=== PATIENT | female | born 1950 | race Caucasian/White ===

== ENCOUNTER → 2016-06-07 | Outpatient (CLI) | payer OTHER ==
[2016-05-17 10:51] VITALS: BP 121/72
[~2016-06-07] MED LIST: ASPI-482 PO; ASPI81TA44 PO; ATOR20TA58 PO; CARB15DR3 EACHEYE; CELE100C59 PO; CEPH-264 PO; CYCL1DRO EACHEYE; DOXY100C14 PO; DOXY40CP PO; FISH12002 PO; FURO20TA3 PO; GLIP10TA13 PO; HYDR-2666 PO; HYDR-971 PO; HYDR12.58 PO; IOHEXOL 240 MG/ML 50ML VIAL. ONE; IOHEXOL 300 MG/ML 75 ML VIAL. IV ONE; LEVO125T5 PO; LEVO25TA4 PO; LISI-334 PO; LOTE5DRO2 LEFTEYE; METF500T4 PO; METO50TA10 PO; METO50TA2 PO; NAPR220T70 PO; OXYC5TAB PO; POTA10TA5 PO; SIMV40TA3 PO
--- NOTE | 2016-06-07 10:03 | RAD ---
Examination: CT of the abdomen pelvis with oral and IV contrast History: History of epigastric or pelvic pain for one week Comparison: None available Technique: Axial CT images of the abdomen was performed with oral and IV contrast. Coronal and sagittal reformats are performed PQRS Compliance Statement: One or more of the following individualized dose reduction techniques were utilized for this examination: 1. Automated exposure control 2. Adjustment of the mA and/or kV according to patient size 3. Use of iterative reconstruction technique Findings: 4 mm pulmonary nodule identified in the right lower lobe of the lung medially. No evidence of free air identified in the abdomen. The visualized adrenals grossly appears unremarkable. Mildly enlarged liver. Few calcified granulomas identified in the spleen. Mild splenomegaly measuring 14 cm. The gallbladder is mildly distended. A small gallstone identified within the gallbladder. The visualized pancreas grossly appears unremarkable. The stomach is mildly distended. The small bowel is nondistended. Multiple sigmoid colon diverticula. Mild thickened appearance of the distal rectal wall. The urinary bladder is mildly distended. Heterogeneous appearance of the uterus with an exophytic heterogeneous density identified projecting from the uterus best visualized on coronal image 44 measuring 2.8 x 2.6 cm could be a fibroid or the right ovary projecting superior to the uterus. Moderate amount of free fluid identified in the pelvis. Small umbilical hernia noted. Retroaortic left renal vein is identified. Moderate degenerative changes in the lumbar spine. Bilateral L5 spondylolysis with mild spondylolisthesis of L5 on S1. Impression: 1. Multiple sigmoid colon diverticulosis without evidence of diverticulitis identified. There is mild thickened appearance of the distal rectal wall, nonspecific could represent nondistention. However rectal mucosa pathology is not completely excluded. 2. Mild hepatosplenomegaly. 3. Small gallstone identified within the gallbladder. 4. Small umbilical hernia. 5. Heterogeneous appearance of the uterus, ultrasound pelvis can be considered to exclude fibroids. 6. 4 mm pulmonary nodule right lower lobe of lung. Follow-up per Fleischner Society guidelines. The Fleischner Society guidelines for followup of an incidentally detected 4 mm or smaller pulmonary nodule are as follows: If the patient is a low risk patient (non-smoker and no known tumor), a 4 mm nodule does not need followup. If the patient has a primary extra thoracic tumor or hematogenous infection, this nodule cannot be ignored as it could represent metastasis or septic embolus. If the patient is a high risk patient (smoker or has an extrathoracic primary), followup chest CT in one year is recommended. If unchanged, no further follow-up is recommended.
== END | disposition home or self-care (01) ==
LOC: CT 08:11
PROVIDERS: ATTEND Nurse Practitioner Family
DX: R10.32 Left lower quadrant pain (principal); R10.31 Right lower quadrant pain; R19.7 Diarrhea, unspecified; R11.2 Nausea with vomiting, unspecified; R16.2 Hepatomegaly with splenomegaly, not elsewhere classified; K80.20 Calculus of gallbladder without cholecystitis without obstruction; K42.9 Umbilical hernia without obstruction or gangrene
CPT/HCPCS: 74177; Q9966; Q9967

== ENCOUNTER → 2016-07-10 | Outpatient (CLI) | payer OTHER ==
[2016-05-17 10:51] VITALS: BP 121/72
[~2016-07-10] MED LIST changes: -IOHEXOL 240 MG/ML 50ML VIAL. ONE; -IOHEXOL 300 MG/ML 75 ML VIAL. IV ONE
--- NOTE | 2016-07-10 11:02 | RAD ---
Radionuclide gastric imaging study, 07/10/2016: History: Abdominal pain The study was performed utilizing a solid test meal radiolabeled with 2 mCi of technetium 99m sulfur colloid. The time to half emptying of the chest with the patient's stomach was estimated at 165 minutes. A normal T1/2 is 60 minutes +/- 30 minutes. IMPRESSION: Moderately delayed gastric emptying.
== END | disposition home or self-care (01) ==
LOC: NM 08:58
PROVIDERS: ATTEND Internal Medicine Gastroenterology
DX: K30 Functional dyspepsia (principal); I10 Essential (primary) hypertension
CPT/HCPCS: 78264; A9541

== ENCOUNTER → 2016-07-18 | Outpatient (CLI) | payer OTHER ==
[2016-05-17 10:51] VITALS: BP 121/72
[~2016-07-18] VITALS: Ht 185.4 cm; Wt 109.8 kg
[~2016-07-18] MED LIST changes: +SINCALIDE 2.2 MCG in IV NORMAL SALINE 50ML 30 ML IV ONE
--- NOTE | 2016-07-18 09:22 | RAD ---
Right upper quadrant abdominal ultrasound, 07/18/2016: History: Epigastric pain The gallbladder is within normal limits in size. It contains multiple small foci of increased echogenicity with associated posterior acoustic shadowing. The findings are compatible with gallstones. The gallbladder wall is not thickened. No bile duct dilatation is seen. The liver is enlarged measures approximately 19 cm in craniocaudad extent at the level of the right lobe. No hepatic mass is identified. The visualized portions of the pancreas and right kidney are unremarkable. IMPRESSION: 1. Cholelithiasis. 2. Hepatomegaly.
--- NOTE | 2016-07-18 13:01 | RAD ---
Hepatobiliary scan with ejection fraction History: Abdominal pain for 3 months. Procedure: Serial static images are obtained of the liver and biliary system in the frontal and right lateral projections following IV administration of 5.3 mCi of 99 M technetium Choletec. After filling of the gallbladder, 2.2 mcg of cholecystokinin was administered intravenously, additional imaging was performed for 30 minutes, and gallbladder ejection fraction was measured. Findings: There is homogeneous distribution throughout the liver. There is normal filling of the gallbladder and normal emptying into the biliary system and small bowel. The gallbladder ejection fraction measures 9% (normal gallbladder EF is 35% or greater). Impression: 1. No evidence of acute cholecystitis or biliary obstruction. 2. Gallbladder ejection fraction is low at 9%. In the proper clinical setting, findings would be compatible with chronic cholecystitis.
== END | disposition home or self-care (01) ==
LOC: US 08:06
PROVIDERS: ATTEND Internal Medicine Gastroenterology
DX: K80.20 Calculus of gallbladder without cholecystitis without obstruction (principal); R16.0 Hepatomegaly, not elsewhere classified
CPT/HCPCS: 76705; 78226; 96374; 96375; A9537; J2805

== ENCOUNTER 2016-07-23 09:30 | Observation (INO) | payer OTHER ==
[~2016-07-23] VITALS: Ht 154.9 cm; Wt 114.1 kg
[2016-07-23] VITALS (10 sets, daily range): BP systolic 157–213; BP diastolic 70–108
[~2016-07-23 09:30] MED LIST changes: -SINCALIDE 2.2 MCG in IV NORMAL SALINE 50ML 30 ML IV ONE
--- NOTE | 2016-07-23 09:35 | ED.ADGEN ---
Past History Past Medical History: Hypertension, Hypothyroid Past Surgical History: Other Smoking: Non-smoker Alcohol Use: Rarely Drug Use: None Adult General Chief Complaint Chief Complaint Elevated D-dimer [facility] HPI Patient is a 65 year old female who presents with abnormal lab values. According to patient she woke up 2 nights ago around 2 in the morning and had sharp stabbing pain when over around her back into her epigastric area and she felt short of breath with this. She got up and walked around tried watching TV after 20 minutes it was reduced to a tolerable level. It persisted until last night. Yesterday she saw her primary care physician who ordered an EKG lab work and a d-dimer and then she was called this morning stating her d- dimer was elevated. Currently she has no complaints other than her chronic abdominal pain of which she is scheduled for to get a hernia repair in addition to a cholecystectomy. She states yesterday afternoon/evening around 7 PM her pain completely subsided and since then she's been having her chronic abdominal wall pain. She denies any fevers chills nausea vomiting or chest pain currently. She states she's had a cardiology cardiac catheter to [facility] partially 6 years ago which they told her the main blood vessel in her heart is about 70% stenosed but was not bad enough to do anything about it. She states since then she's not had any cardiac evaluation. She does have a family history of heart disease with her sister and a previous history of tobacco abuse. Patient had labs drawn yesterday that showed a d-dimer of extending 0.2, troponin of less than 0.01, creatinine of 1.33 with a GFR 42 and BUNs of 26. Review of Systems Review of Systems Constitutional: Denies fever or chills [] Eyes: Denies change in visual acuity, redness, or eye pain [] HENT: Denies nasal congestion or sore throat [] Respiratory: Denies cough or shortness of breath [] Cardiovascular: No additional information not addressed in HPI [] GI: Denies abdominal pain, nausea, vomiting, bloody stools or diarrhea [] : Denies dysuria or hematuria [] Musculoskeletal: Denies back pain or joint pain [] Integument: Denies rash or skin lesions [] Neurologic: Denies headache, focal weakness or sensory changes [] Endocrine: Denies polyuria or polydipsia [] Current Medications Current Medications Current Medications Medications (Trade) Dose Ordered Sig/Alejandrina Start Time Stop Time Status Last Admin Dose Admin Iohexol 75 ml 75 ml 1X ONCE 07/23/16 13:00 07/23/16 13:01 DC 07/23/16 13:12 75 ML Nitroglycerin (Nitrostat) 0.4 mg PRN Q5MIN PRN 07/23/16 15:00 07/24/16 14:59 UNV Ondansetron HCl (Zofran) 4 mg PRN Q4HRS PRN 07/23/16 15:00 07/24/16 14:59 UNV Sodium Chloride (Iv Sodium Chloride 0.9% 1,000ml) 1,000 ml @ 1,000 mls/hr 1X ONCE 07/23/16 13:30 07/23/16 14:29 DC 07/23/16 13:30 1,000 MLS/HR Allergies Allergies Allergies Coded Allergies Type Severity Reaction Last Updated Verified niacin Allergy Unknown 09/23/13 No Physical Exam Physical Exam Constitutional: Well developed, well nourished, obese, no acute distress, non- toxic appearance. [] HENT: Normocephalic, atraumatic, bilateral external ears normal, oropharynx moist, no oral exudates, nose normal. [] Eyes: PERRLA, EOMI, conjunctiva normal, no discharge. [] Neck: Normal range of motion, no tenderness, supple, no stridor. [] Cardiovascular:Heart rate regular rhythm, no murmur [] Lungs & Thorax: Bilateral breath sounds clear to auscultation [] Abdomen: Bowel sounds normal, soft, no tenderness, no masses, no pulsatile masses. [] Skin: Warm, dry, no erythema, no rash. [] Back: No tenderness, no CVA tenderness. [] Extremities: No tenderness, no cyanosis, no clubbing, ROM intact, no edema. [] Neurologic: Alert and oriented X 3, normal motor function, normal sensory function, no focal deficits noted. [] Psychologic: Affect normal, judgement normal, mood normal. [] Current Patient Data Vital Signs Vital Signs Date Time Temp Pulse Resp B/P Pulse Ox O2 Delivery O2 Flow Rate FiO2 07/23/16 13:44 71 20 159/79 98 Room Air 07/23/16 09:30 98.0 Lab Results Laboratory Tests Test 07/23/16 10:15 07/23/16 11:50 Urine Collection Type Unknown Urine Color Yellow Urine Clarity Clear Urine pH 5.0 Urine Specific [place] 1.015 Urine Protein Neg (NEG-TRACE) Urine Glucose (UA) Negmg/dL (NEG) Urine Ketones (Stick) Negmg/dL (NEG) Urine Blood Small (NEG) Urine Nitrite Neg (NEG) Urine Bilirubin Neg (NEG) Urine Urobilinogen Dipstick 0.2mg/dL (0.2 mg/dL) Urine Leukocyte Esterase Neg (NEG) Urine RBC 1-2/HPF (0-2) Urine WBC Rare/HPF (0-4) Urine Squamous Epithelial Cells Few/LPF Urine Amorphous Sediment Present/HPF Urine Bacteria 0/HPF (0-FEW) Urine Mucus Slight/LPF White Blood Count 4.5x10^3/uL (4.0-11.0) Red Blood Count 4.35x10^6/uL (3.50-5.40) Hemoglobin 13.7g/dL (12.0-15.5) Hematocrit 41.2% (36.0-47.0) Mean Corpuscular Volume 95fL (79-100) Mean Corpuscular Hemoglobin 31pg (25-35) Mean Corpuscular Hemoglobin Concent 33g/dL (31-37) Red Cell Distribution Width 13.2% (11.5-14.5) Platelet Count 232x10^3/uL (140-400) Neutrophils (%) (Auto) 42% (31-73) Lymphocytes (%) (Auto) 34% (24-48) Monocytes (%) (Auto) 16% (0-9) H Eosinophils (%) (Auto) 7% (0-3) H Basophils (%) (Auto) 1% (0-3) Neutrophils # (Auto) 1.9x10^3uL (1.8-7.7) Lymphocytes # (Auto) 1.5x10^3/uL (1.0-4.8) Monocytes # (Auto) 0.7x10^3/uL (0.0-1.1) Eosinophils # (Auto) 0.3x10^3/uL (0.0-0.7) Basophils # (Auto) 0.1x10^3/uL (0.0-0.2) Prothrombin Time 12.0SEC (9.4-11.4) H Prothrombin Time INR 1.2 (0.9-1.1) H PTT 29SEC (23-33) Sodium Level 144mmol/L (136-145) Potassium Level 4.6mmol/L (3.5-5.1) Chloride Level 108mmol/L (98-107) H Carbon Dioxide Level 28mmol/L (21-32) Anion Gap 8 (6-14) Blood Urea Nitrogen 24mg/dL (7-20) H Creatinine 1.2mg/dL (0.6-1.0) H Estimated GFR (Cockcroft-Gault) 44.9 BUN/Creatinine Ratio 20 (6-20) Glucose Level 74mg/dL (70-99) Calcium Level 8.8mg/dL (8.5-10.1) Magnesium Level 1.7mg/dL (1.8-2.4) L Total Bilirubin 0.6mg/dL (0.2-1.0) Aspartate Amino Transferase (AST) 34U/L (15-37) Alanine Aminotransferase (ALT) 30U/L (14-59) Alkaline Phosphatase 70U/L (46-116) Creatine Kinase 28U/L (26-192) Creatine Kinase MB (Mass) 0.5ng/mL (0.0-3.6) Creatine Kinase MB Relative Index 1.8% (0-4) Troponin I Quantitative < 0.017ng/mL (0-0.055) EC-Ztl-N-Type Natriuretic Peptide 168pg/mL (0-124) H Total Protein 7.4g/dL (6.4-8.2) Albumin 3.0g/dL (3.4-5.0) L Albumin/Globulin Ratio 0.7 (1.0-1.7) L Lipase 273U/L (73-393) EKG EKG EKG shows normal sinus rhythm with rate of [address] elevations or T -wave inversions, normal axis, QTC 436 ms, as interpreted by me. Radiology/Procedures Radiology/Procedures [address] [address] IMAGING REPORT Signed PATIENT: JOHN GOODSON ACCOUNT: [id number] : 1950 LOCATION: ER AGE: 65 SEX: F EXAM STATUS: REG ER ORD. PHYSICIAN: JAZ BLOUNT MD REASON: soa PROCEDURE: PORTABLE CHEST 1V Portable chest, 07/23/2016: History: Shortness of breath Comparison is made to a study from 05/15/2016. The heart size and pulmonary vascularity are normal. No pulmonary infiltrates are seen. There is no evidence of pleural fluid. IMPRESSION: No acute cardiopulmonary abnormality is detected. DICTATED AND SIGNED BY: MARK SUAREZ MD DATE: 07/23/16 1140 CC: MARK KNOWLES MD; JAZ BLOUNT MD ~ Pertinent Labs and Imaging studies reviewed. (See chart for details) [place] [address] IMAGING REPORT Signed PATIENT: JOHN OGODSON ACCOUNT: [id number] : 1950 LOCATION: ER AGE: 65 SEX: F EXAM STATUS: REG ER ORD. PHYSICIAN: JAZ BLOUNT MD REASON: elevated d dimer PROCEDURE: CT ANGIOGRAPHY CHEST CTA of the chest with contrast, 07/23/2016: History: Elevated d-dimer, preop evaluation Multidetector CT imaging was performed following an IV bolus injection of iodinated contrast material. 2 injections were necessary due to technical difficulties. Multiplanar reconstructions were produced including coronal MIP images. The main and lobar pulmonary arteries are fairly well opacified and no filling defects are seen. There is a tiny filling defect present in a segmental pulmonary artery in the right lower lobe extending into a subsegmental branch. No other definite pulmonary arterial filling defects are seen, although the smaller branches are not well delineated in this large patient. There is calcific plaquing of the thoracic aorta without evidence of aneurysm. Extensive coronary artery calcifications are present. Small mediastinal lymph nodes are seen without evidence of pathologic enlargement. There are 2 calcified granulomata in the right lung. There are several small noncalcified pulmonary nodules in both lungs. These include a 5 mm nodule in the left upper lobe as seen on image 41 of series #4, and similar nodules in the right lower lobe as seen on image 69 of series #4 and in the right upper lobe as seen on image 42 of series #4. A couple of other smaller scattered nodules are also seen. No pulmonary consolidation is evident. There is no evidence of pleural fluid. IMPRESSION: 1. Single tiny pulmonary emboli in a segmental pulmonary artery and a subsegmental branch in the right lower lobe. 2. No other definite pulmonary emboli are seen, however, the smaller pulmonary arteries are not optimally delineated in this patient. 3. Old healed granulomatous disease in the chest. 4. Several noncalcified bilateral pulmonary nodules are evident. While these may represent noncalcified granulomas, metastatic disease cannot be excluded. 5. Extensive coronary artery calcifications. PQRS Compliance Statement: One or more of the following individualized dose reduction techniques were utilized for this examination: 1. Automated exposure control 2. Adjustment of the mA and/or kV according to patient size 3. Use of iterative reconstruction technique DICTATED AND SIGNED BY: MARK SUAREZ MD DATE: 07/23/16 5394 CC: MARK KNOWLES MD; JAZ BLOUNT MD ~ Course & Med Decision Making Course & Med Decision Making Pertinent Labs and Imaging studies reviewed. (See chart for details) Patient is scheduled for a cholecystectomy and abdominal wall hernia repair on . She's been having intermittent chest discomfort and states she's had a cardiac catheter 6 years ago that shows a significant stenosis in one of her coronary vessels. She has a family history of 6 siblings with all having coronary disease. She states she hasn't had any kind of workup in the last 6 years. Her EKG shows T-wave inversions that's different from yesterday's EKG. Her labs do not show any acute abnormalities. She does have a small subsegmental PE on CT [place]. Do not believe her small PE explains all of her symptoms and justifies having cardiology evaluate her for possible stress test before her surgery that she has planned. I spoke with Dr. Albright who is okay with starting Lovenox and admitting the patient here with cardiology consultation. I spoke with Marti is a nurse practitioner with cardiology and updated her on the patient's condition, labs, EKG. Patient's in stable condition being given Lovenox and admitted with a bridge orders written. Final Impression Final Impression Subsegmental PE Chest pain Hypertension Diabetes Dyslipidemia Obesity Problems: Dragon Disclaimer Dragon Disclaimer This electronic medical record was generated, in whole or in part, using a voice recognition dictation system. JAZ BLOUNT MD July 23, 2016 09:35
[2016-07-23] MEDS ORDERED: IV NORMAL SALINE 1,000ML 1,000 ML IV SCH (10:15)
[2016-07-23 10:48] LABS: BACTERIA,URINE 0 /HPF (0-FEW); BILIRUBIN,URINE NEG (NEG); CLARITY,URINE CLEAR; COLOR,URINE YELLOW; GLUCOSE,URINE NEG (NEG); NITRITE,URINE NEG (NEG); SQUAMOUS EPITHELIAL CELL,UR FEW /LPF; UROBILINOGEN,URINE 0.2 mg/dL (0.2 mg/dL); WBC,URINE RARE /HPF (0-4)
[2016-07-23 10:49] LABS: AMORPHOUS SEDIMENT,UR PRESENT /HPF
--- NOTE | 2016-07-23 10:50 | EKG ---
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
--- NOTE | 2016-07-23 11:43 | RAD ---
Portable chest, 07/23/2016: History: Shortness of breath Comparison is made to a study from 05/15/2016. The heart size and pulmonary vascularity are normal. No pulmonary infiltrates are seen. There is no evidence of pleural fluid. IMPRESSION: No acute cardiopulmonary abnormality is detected.
[2016-07-23 12:07] LABS: BASO # 0.1 x10^3/uL (0.0-0.2); BASO % 1 % (0-3); EOS # 0.3 x10^3/uL (0.0-0.7); EOS % 7 % (0-3); HEMATOCRIT 41.2 % (36.0-47.0); HEMOGLOBIN 13.7 g/dL (12.0-15.5); LYMPH # 1.5 x10^3/uL (1.0-4.8); LYMPH % 34 % (24-48); MEAN CORPUSCULAR HEMOGLOBIN 31 pg (25-35); MEAN CORPUSCULAR HGB CONC 33 g/dL (31-37); MEAN CORPUSCULAR VOLUME 95 fL (79-100); MONO # 0.7 x10^3/uL (0.0-1.1); MONO % 16 % (0-9); NEUT # 1.9 x10^3uL (1.8-7.7); NEUT % 42 % (31-73); PLATELET COUNT 232 x10^3/uL (140-400); RED BLOOD COUNT 4.35 x10^6/uL (3.50-5.40); RED CELL DISTRIBUTION WIDTH 13.2 % (11.5-14.5); WHITE BLOOD COUNT 4.5 x10^3/uL (4.0-11.0)
[2016-07-23 12:39] LABS: ALBUMIN/GLOBULIN RATIO 0.7 (1.0-1.7); CALCIUM 8.8 mg/dL (8.5-10.1); CREATININE 1.2 mg/dL (0.6-1.0); GFR 44.9; MAGNESIUM 1.7 mg/dL (1.8-2.4); POTASSIUM 4.6 mmol/L (3.5-5.1); TOTAL BILIRUBIN 0.6 mg/dL (0.2-1.0); TOTAL PROTEIN 7.4 g/dL (6.4-8.2)
[2016-07-23] MEDS ORDERED: IOHEXOL 300 MG/ML 75 ML VIAL. IV ONE (13:00)
[2016-07-23] MEDS ORDERED: IV NORMAL SALINE 1,000ML 1,000 ML IV ONE (13:30)
--- NOTE | 2016-07-23 14:12 | RAD ---
CTA of the chest with contrast, 07/23/2016: History: Elevated d-dimer, preop evaluation Multidetector CT imaging was performed following an IV bolus injection of iodinated contrast material. 2 injections were necessary due to technical difficulties. Multiplanar reconstructions were produced including coronal MIP images. The main and lobar pulmonary arteries are fairly well opacified and no filling defects are seen. There is a tiny filling defect present in a segmental pulmonary artery in the right lower lobe extending into a subsegmental branch. No other definite pulmonary arterial filling defects are seen, although the smaller branches are not well delineated in this large patient. There is calcific plaquing of the thoracic aorta without evidence of aneurysm. Extensive coronary artery calcifications are present. Small mediastinal lymph nodes are seen without evidence of pathologic enlargement. There are 2 calcified granulomata in the right lung. There are several small noncalcified pulmonary nodules in both lungs. These include a 5 mm nodule in the left upper lobe as seen on image 41 of series #4, and similar nodules in the right lower lobe as seen on image 69 of series #4 and in the right upper lobe as seen on image 42 of series #4. A couple of other smaller scattered nodules are also seen. No pulmonary consolidation is evident. There is no evidence of pleural fluid. IMPRESSION: 1. Single tiny pulmonary emboli in a segmental pulmonary artery and a subsegmental branch in the right lower lobe. 2. No other definite pulmonary emboli are seen, however, the smaller pulmonary arteries are not optimally delineated in this patient. 3. Old healed granulomatous disease in the chest. 4. Several noncalcified bilateral pulmonary nodules are evident. While these may represent noncalcified granulomas, metastatic disease cannot be excluded. 5. Extensive coronary artery calcifications. PQRS Compliance Statement: One or more of the following individualized dose reduction techniques were utilized for this examination: 1. Automated exposure control 2. Adjustment of the mA and/or kV according to patient size 3. Use of iterative reconstruction technique
[2016-07-23] MEDS ORDERED: ONDANSETRON PF 4 MG/2 ML VIAL. IV PRN (15:00)
[2016-07-23] MEDS ORDERED: NITROGLYCERIN SUBLINGUAL 0.4 MG BOTTLE OF 25. SL PRN (15:00)
[2016-07-23] MEDS ORDERED: ENOXAPARIN ** NOTE DOSE ** SYRINGE SQ ONE (15:15)
--- NOTE | 2016-07-23 15:48 | ACF ---
Admission Criteria Forms PULMONARY EMBOLISM Clinical Indications for Admission to Inpatient Care (Place 'X' for any and all applicable criteria): Admission is indicated by ANY ONE of the following 1,2,3,4,5 [ ]I. Onset of hypoxia [ ]II. Hemodynamic instability 5 [ ]III. Massive pulmonary embolism (eg, acute embolism causing sustained hypotension, pulselessness, or bradycardia)5 [ ]IV. Need for IV narcotics (eg, to treat dyspnea) [ ]V. Current use of home oxygen therapy [ ]. Active bleeding [X]VII. Recent surgery [ ]VIII. Active peptic ulcer disease [ ]IX. Documented extensive thrombosis (eg, clot in vena cava or above iliofemoral bifurcation) [ ]X. Embolism while on anticoagulation [ ]XI. 6 [ ]XII. Appropriate monitoring and therapy cannot be provided in home or outpatient setting. [ ]XIII. Systemic or catheter-directed thrombolysis 5,7 [ ]XIV. Catheter embolectomy and fragmentation 6 [ ]XV. Vena cava filter placement5 [ ]XVI. Severely diminished cardiopulmonary reserve (eg, cor pulmonale, pulmonary hypertension) [ ]XVII. Severe renal failure (eg, GFR less than 30 mL/min/1.73m2 (0.5 mL/sec/ 1.73m2)) [ ]XVIII.Right ventricular dysfunction (eg, by echocardiogram) 6,11 [ ]XIX. Positive cardiac biomarker (eg, troponin T or I > 0.1 ng/mL (mcg/L), highly sensitive troponin I assay greater than 0.014 ng/mL (mcg/L), BNP or NT proBNP > assay threshold)5,8,9 [ ]XX. Known clotting abn or def (eg, liver disease, antithrombin III, protein C, or protein S abnormality) [ ]XXI. History of heparin-induced thrombocytopenia [ ]XXII. Inpatient admission required rather than observation care (Also use Pulmonary Embolism: Observation Care guideline as appropriate) because of ANY ONE of the following: [ ] a) Significant autoimmune (thrombocytopenia) or coagulopathic reaction occurs in response to anticoagulation [ ] b) Respiratory symptoms (eg, tachypnea, dyspnea) that are severe or persistent [ ] c) Other condition, treatment, or monitoring requiring inpatient admission Extended stay beyond goal length of stay may be needed for 3,28 [ ]a) Hemorrhage or recent surgery [ ]b) Recurrent thromboembolism [ ]c) Persistent hypoxemia [ ]d) Heparin-induced thrombocytopenia The original [facility] content created by [facility] has been revised. The portions of the content which have been revised are identified through the use of italic text or in bold, and [facility]3] has neither reviewed nor approved the modified material. All other unmodified content is copyright [facility]. Please see references footnoted in the original [facility] edition 2016 Admission Criteria Met?: Yes SHANNON XAVIER July 23, 2016 15:47
--- NOTE | 2016-07-23 17:46 | RAD ---
EXAM: BILATERAL LOWER EXTREMITY VENOUS DOPPLER. HISTORY: Elevated D-dimer. FINDINGS: Grayscale and doppler analysis of the lower extremity deep venous systems was performed with graded compression and augmentation. The common femoral, greater saphenous, deep femoral, superficial femoral, popliteal, and calf veins were assessed. There is no evidence of deep venous thrombosis.][ IMPRESSION: No evidence of deep venous thrombosis. Electronically signed by: Amos Harper (July 23, 2016 17:44:39)
[2016-07-23] MEDS ORDERED: LEVOTHYROXINE 125 MCG TABLET PO SCH (18:00)
[2016-07-23] MEDS: ASPIRIN 81 MG TAB.CHEW PO SCH (18:18)
[2016-07-23] MEDS: METOPROLOL TART IMMED RELEASE 50 MG TABLET PO SCH (18:18)
[2016-07-23] MEDS: DOXYCYCLINE HYCLATE 100 MG TABLET PO SCH (18:18)
[2016-07-23] MEDS ORDERED: LOSA1TAB16 PO (18:26)
[2016-07-23] MEDS: LOSARTAN 50 MG TABLET. PO SCH (18:55)
[2016-07-23] MEDS: HYDROCHLOROTHIAZIDE 12.5 MG CAPSULE PO SCH (18:56)
[2016-07-23] MEDS: CELECOXIB 100 MG CAPSULE PO SCH ×2 (18:59→20:02)
[2016-07-23] MEDS ORDERED: NICARDIPINE HCL 50 MG in IV NORMAL SALINE 250ML 250 ML IV PRN (19:45)
[2016-07-23] MEDS: CYCLOSPORINE 0.05% OPTH DROPERETTE. OU SCH (20:01)
[2016-07-23] MEDS: LOTEPREDNOL ETAB 0.5% OPHTH SUSPENSION 5ML BOTTLE. OU SCH (20:01)
[2016-07-23] MEDS: ATORVASTATIN CALCIUM 20 MG TABLET PO SCH (20:02)
[2016-07-23] MEDS: POLYVINYL ALCOHOL/POVIDONE/PF OPHTH SOLUTION DROPERETTE. OU SCH (21:00)
[2016-07-24] VITALS (9 sets, daily range): BP systolic 141–179; BP diastolic 64–86
[2016-07-24 02:04] LABS: BASO # 0.1 x10^3/uL (0.0-0.2); BASO % 2 % (0-3); EOS # 0.3 x10^3/uL (0.0-0.7); EOS % 7 % (0-3); HEMATOCRIT 39.4 % (36.0-47.0); HEMOGLOBIN 13.3 g/dL (12.0-15.5); LYMPH # 1.9 x10^3/uL (1.0-4.8); LYMPH % 40 % (24-48); MEAN CORPUSCULAR HEMOGLOBIN 32 pg (25-35); MEAN CORPUSCULAR HGB CONC 34 g/dL (31-37); MEAN CORPUSCULAR VOLUME 94 fL (79-100); MONO # 0.7 x10^3/uL (0.0-1.1); MONO % 14 % (0-9); NEUT # 1.8 x10^3uL (1.8-7.7); NEUT % 38 % (31-73); PLATELET COUNT 214 x10^3/uL (140-400); RED BLOOD COUNT 4.18 x10^6/uL (3.50-5.40); RED CELL DISTRIBUTION WIDTH 13.2 % (11.5-14.5); WHITE BLOOD COUNT 4.8 x10^3/uL (4.0-11.0)
[2016-07-24 02:36] LABS: ALBUMIN 2.9 g/dL (3.4-5.0); ALBUMIN/GLOBULIN RATIO 0.7 (1.0-1.7); CALCIUM 8.6 mg/dL (8.5-10.1); GFR 55.5; POTASSIUM 4.1 mmol/L (3.5-5.1); TOTAL BILIRUBIN 0.5 mg/dL (0.2-1.0); TOTAL PROTEIN 7.2 g/dL (6.4-8.2)
[2016-07-24] MEDS: LEVOTHYROXINE 125 MCG TABLET PO SCH (06:03)
[2016-07-24] MEDS: LOTEPREDNOL ETAB 0.5% OPHTH SUSPENSION 5ML BOTTLE. OU SCH ×2 (07:04→20:36)
[2016-07-24] MEDS: CELECOXIB 100 MG CAPSULE PO SCH (07:06)
[2016-07-24] MEDS: CYCLOSPORINE 0.05% OPTH DROPERETTE. OU SCH ×2 (07:06→20:37)
[2016-07-24] MEDS: ASPIRIN 81 MG TAB.CHEW PO SCH (07:06)
[2016-07-24] MEDS: HYDROCHLOROTHIAZIDE 12.5 MG CAPSULE PO SCH (07:07)
[2016-07-24] MEDS: LOSARTAN 50 MG TABLET. PO SCH (07:07)
[2016-07-24] MEDS: METOPROLOL TART IMMED RELEASE 50 MG TABLET PO SCH ×2 (07:07→20:38)
[2016-07-24] MEDS: DOXYCYCLINE HYCLATE 100 MG TABLET PO SCH (07:09)
--- NOTE | 2016-07-24 08:54 | PDOC2 ---
CONSULT Date of Admission DATE: 07/24/16 TIME: 08:48 Problem List Problems Medical Problems: (1) Chest pain Status: Acute (2) Pulmonary embolism Status: Acute History of Present Illness Ms Mcclendon is a 65 year old female with history of hypertension, hyperlipidemia and coronary artery disease. She reportedly had cardiac cath with known coronary disease several years ago at but did not require intervention. She reports sudden onset of flank pain that radiated to her epigastric area with associated mid sternal pressure and dyspnea that woke her from sleep several days ago. She got up and ambulated in the house then sat up to watch TV without relief. She reports going in to see her PCP and having labs done that day. She says the pressure in her chest has been constant over the last several days. It does not increase with exertion but does improve a bit with cough. She reports a productive cough with green sputum but denies fever or chills. She complains of feeling "wheezy" off and on. She denies orthopnea or PND. She was also noted to have uncontrolled blood pressure so her medication was changed about 2 weeks ago. She currently continues to have some mild pressure, "congestion" in her chest but denies dyspnea. She denies any further flank pain. She denies palpitations, lightheadedness or syncope. Past Medical History hypertension, hyperlipidemia, coronary artery disease, possible history of diabetes mellitus - now off medications, DJD, hypothyroid, TIA Past Surgical History bilateral knee surgeries, shoulder surgery, cataract surgery, tubal ligation, carpal tunnel Family History hypertension, diabetes mellitus, coronary artery disease Current Medications Current Medications Sodium Chloride (Iv Sodium Chloride 0.9% 1,000ml) 1,000 ml @ 1,000 mls/hr Q1H IV Last administered on 07/23/16 10:15; Start 07/23/16 at 10:15; Stop 07/23/16 at 11:14; Status DC Iohexol 75 ml 75 ml 1X ONCE IV Last administered on 07/23/16 13:12; Start 07/23 at 13:00; Stop 07/23/16 at 13:01; Status DC Sodium Chloride (Iv Sodium Chloride 0.9% 1,000ml) 1,000 ml @ 1,000 mls/hr 1X ONCE IV Last administered on 07/23/16 13:30; Start 07/23/16 at 13:30; Stop at 14:29; Status DC Ondansetron HCl (Zofran) 4 mg PRN Q4HRS PRN IV NAUSEA/VOMITING; Start 07/23/16 at 15:00; Stop 07/24/16 at 14:59 Nitroglycerin (Nitrostat) 0.4 mg PRN Q5MIN PRN SL CHEST PAIN; Start 07/23/16 at 15:00; Stop 07/24/16 at 14:59 Enoxaparin Sodium (Lovenox 120mg Syringe) 109 mg 1X ONCE SQ Last administered on 07/23/16 15:08; Start 07/23/16 at 15:15; Stop 07/23/16 at 15:16; Status DC Aspirin (Children'S Aspirin) 81 mg DAILYWBKFT PO Last administered on 07/24/16 07:06; Start 07/23/16 at 18:00 Atorvastatin Calcium (Lipitor) 20 mg QHS PO Last administered on 07/23/16 20:02 ; Start 07/23/16 at 21:00 Celecoxib (Celebrex) 100 mg BID PO Last administered on 07/24/16 07:06; Start 07/23/16 at 18:00 Cyclosporine (Restasis) 1 drop BID OU Last administered on 07/24/16 07:06; Start 07/23/16 at 21:00 Levothyroxine Sodium (Synthroid) 125 mcg DAILY PO ; Start 07/23/16 at 18:00; Stop 07/23/16 at 22:50; Status DC Loteprednol Etabonate (Lotemax) 1 drop BID OU Last administered on 07/24/16 07: 04; Start 07/23/16 at 21:00 Metoprolol Tartrate (Lopressor) 50 mg BID PO Last administered on 07/24/16 07: 07; Start 07/23/16 at 18:30 Artificial Tears (Refresh Classic) 1 drop HS OU ; Start 07/23/16 at 21:00 Doxycycline Hyclate (Vibra-Tab) 50 mg DAILY PO Last administered on 07/24/16 07 :09; Start 07/23/16 at 18:00 Losartan Potassium (Cozaar) 50 mg DAILY PO Last administered on 07/24/16 07:07 ; Start 07/23/16 at 18:45 Hydrochlorothiazide 12.5 mg 12.5 mg DAILY PO Last administered on 07/24/16 07: 07; Start 07/23/16 at 18:45 Nicardipine HCl/ Sodium Chloride (Cardene/Iv Sodium Chloride 0.9% 250ml) 270 ml @ 0 mls/hr CONT PRN IV SEE I/O RECORD; Start 07/23/16 at 19:45 Levothyroxine Sodium (Synthroid) 125 mcg DAILY07 PO Last administered on 06:03; Start 07/24/16 at 07:00 Active Scripts Active Keflex (Cephalexin) 500 Mg Capsule 1 Cap PO TID Atorvastatin Calcium 20 Mg Tablet 20 Mg PO QHS Children's Aspirin (Aspirin) 81 Mg Tab.chew 81 Mg PO DAILYWBKFT Reported Losartan-Hctz 50-12.5 Mg Tab (Losartan/Hydrochlorothiazide) 1 Each Tablet 1 Tab PO DAILY Refresh Optive Eye Drops (Carboxymethylcellulos/Glycerin) 15 Ml Drops 1 Drop EACHEYE HS Lotemax (Loteprednol Etabonate) 5 Ml Drops.susp 1 Drop LEFTEYE QID Restasis (Cyclosporine) 1 Each Droperette 1 Drop EACHEYE BID Oxycodone Hcl 5 Mg Tablet 1-2 Tab PO Q4HRS PRN Celecoxib 100 Mg Capsule 1 Tab PO BID Levothyroxine Sodium 125 Mcg Tablet 1 Tab PO DAILY Hydrocodone-Apap 5-325 (Hydrocodone Bit/Acetaminophen) 1 Each Tablet 1-2 Tab PO Q4HRS PRN Doxycycline Monohydrate 100 Mg Capsule 0.5 Cap PO DAILY LAST DOSE GIVEN: DATE: TIME: NEXT DOSE DUE: DATE: TIME: Metoprolol Tartrate 50 Mg Tablet 50 Mg PO BID Allergies: Coded Allergies: niacin (Unverified Allergy, Unknown, 09/23/13) Review of System as per HPI Eyes: Yes: Excessive tearing HEENT: YES: Nasal congestion, Sneezing Respiratory: YES: Cough, Sputum Changes, Wheezing Cardiovascular: yes: Chest Pain Gastrointestinal: YES: Abdominal Pain, Diarrhea Musculoskeletal: YES: Joint Pain General: Alert, Oriented X3, Cooperative, No acute distress HEENT: Atraumatic, EOMI, Mucous membr. moist/pink Lungs: Other (decreased bases without crackles, wheezes or rhonchi) Heart: Regular rate, Normal S1, Normal S2, Other (no obvious murmurs, no clicks , rubs or gallops) Abdomen: Normal bowel sounds, Soft, Other (mild epigastric tenderness) Extremities: No cyanosis, Normal pulses, Other (trace edema) Neuro: Normal speech, Strength at 5/5 X4 ext Psych/Mental Status: Mental status NL, Mood NL VITALS Vital Signs Date Time Temp Pulse Resp B/P Pulse Ox O2 Delivery O2 Flow Rate FiO2 07/24/16 07:29 Room Air 07/24/16 07:07 62 160/76 07/24/16 05:34 97.5 19 97 Labs Laboratory Tests Test 07/23/16 10:15 07/23/16 11:50 07/23/16 15:00 07/23/16 16:30 Urine Collection Type Unknown Urine Color Yellow Urine Clarity Clear Urine pH 5.0 Urine Specific [place] 1.015 Urine Protein Neg (NEG-TRACE) Urine Glucose (UA) Negmg/dL (NEG) Urine Ketones (Stick) Negmg/dL (NEG) Urine Blood Small (NEG) Urine Nitrite Neg (NEG) Urine Bilirubin Neg (NEG) Urine Urobilinogen Dipstick 0.2mg/dL (0.2 mg/dL) Urine Leukocyte Esterase Neg (NEG) Urine RBC 1-2/HPF (0-2) Urine WBC Rare/HPF (0-4) Urine Squamous Epithelial Cells Few/LPF Urine Amorphous Sediment Present/HPF Urine Bacteria 0/HPF (0-FEW) Urine Mucus Slight/LPF White Blood Count 4.5x10^3/uL (4.0-11.0) Red Blood Count 4.35x10^6/uL (3.50-5.40) Hemoglobin 13.7g/dL (12.0-15.5) Hematocrit 41.2% (36.0-47.0) Mean Corpuscular Volume 95fL (79-100) Mean Corpuscular Hemoglobin 31pg (25-35) Mean Corpuscular Hemoglobin Concent 33g/dL (31-37) Red Cell Distribution Width 13.2% (11.5-14.5) Platelet Count 232x10^3/uL (140-400) Neutrophils (%) (Auto) 42% (31-73) Lymphocytes (%) (Auto) 34% (24-48) Monocytes (%) (Auto) 16% (0-9) Eosinophils (%) (Auto) 7% (0-3) Basophils (%) (Auto) 1% (0-3) Neutrophils # (Auto) 1.9x10^3uL (1.8-7.7) Lymphocytes # (Auto) 1.5x10^3/uL (1.0-4.8) Monocytes # (Auto) 0.7x10^3/uL (0.0-1.1) Eosinophils # (Auto) 0.3x10^3/uL (0.0-0.7) Basophils # (Auto) 0.1x10^3/uL (0.0-0.2) Prothrombin Time 12.0SEC (9.4-11.4) Prothromb Time International Ratio 1.2 (0.9-1.1) Activated Partial Thromboplast Time 29SEC (23-33) Sodium Level 144mmol/L (136-145) Potassium Level 4.6mmol/L (3.5-5.1) Chloride Level 108mmol/L (98-107) Carbon Dioxide Level 28mmol/L (21-32) Anion Gap 8 (6-14) Blood Urea Nitrogen 24mg/dL (7-20) Creatinine 1.2mg/dL (0.6-1.0) Estimated GFR (Cockcroft-Gault) 44.9 BUN/Creatinine Ratio 20 (6-20) Glucose Level 74mg/dL (70-99) Calcium Level 8.8mg/dL (8.5-10.1) Magnesium Level 1.7mg/dL (1.8-2.4) Total Bilirubin 0.6mg/dL (0.2-1.0) Aspartate Amino Transf (AST/SGOT) 34U/L (15-37) Alanine Aminotransferase (ALT/SGPT) 30U/L (14-59) Alkaline Phosphatase 70U/L (46-116) Creatine Kinase 28U/L (26-192) Creatine Kinase MB (Mass) 0.5ng/mL (0.0-3.6) Creatine Kinase MB Relative Index 1.8% (0-4) Troponin I Quantitative < 0.017ng/mL (0-0.055) JS-Sgk-I-Type Natriuretic Peptide 168pg/mL (0-124) Total Protein 7.4g/dL (6.4-8.2) Albumin 3.0g/dL (3.4-5.0) Albumin/Globulin Ratio 0.7 (1.0-1.7) Lipase 273U/L (73-393) Nasal Screen MRSA (PCR) Negative (Negative) Negative (Negative) Test 07/24/16 01:50 White Blood Count 4.8x10^3/uL (4.0-11.0) Red Blood Count 4.18x10^6/uL (3.50-5.40) Hemoglobin 13.3g/dL (12.0-15.5) Hematocrit 39.4% (36.0-47.0) Mean Corpuscular Volume 94fL (79-100) Mean Corpuscular Hemoglobin 32pg (25-35) Mean Corpuscular Hemoglobin Concent 34g/dL (31-37) Red Cell Distribution Width 13.2% (11.5-14.5) Platelet Count 214x10^3/uL (140-400) Neutrophils (%) (Auto) 38% (31-73) Lymphocytes (%) (Auto) 40% (24-48) Monocytes (%) (Auto) 14% (0-9) Eosinophils (%) (Auto) 7% (0-3) Basophils (%) (Auto) 2% (0-3) Neutrophils # (Auto) 1.8x10^3uL (1.8-7.7) Lymphocytes # (Auto) 1.9x10^3/uL (1.0-4.8) Monocytes # (Auto) 0.7x10^3/uL (0.0-1.1) Eosinophils # (Auto) 0.3x10^3/uL (0.0-0.7) Basophils # (Auto) 0.1x10^3/uL (0.0-0.2) Sodium Level 141mmol/L (136-145) Potassium Level 4.1mmol/L (3.5-5.1) Chloride Level 108mmol/L (98-107) Carbon Dioxide Level 24mmol/L (21-32) Anion Gap 9 (6-14) Blood Urea Nitrogen 19mg/dL (7-20) Creatinine 1.0mg/dL (0.6-1.0) Estimated GFR (Cockcroft-Gault) 55.5 BUN/Creatinine Ratio 19 (6-20) Glucose Level 78mg/dL (70-99) Calcium Level 8.6mg/dL (8.5-10.1) Total Bilirubin 0.5mg/dL (0.2-1.0) Aspartate Amino Transf (AST/SGOT) 44U/L (15-37) Alanine Aminotransferase (ALT/SGPT) 35U/L (14-59) Alkaline Phosphatase 67U/L (46-116) Troponin I Quantitative < 0.017ng/mL (0-0.055) Total Protein 7.2g/dL (6.4-8.2) Albumin 2.9g/dL (3.4-5.0) Albumin/Globulin Ratio 0.7 (1.0-1.7) Images EKG - sinus rhythm, non specific abnormalities CXR - IMPRESSION: No acute cardiopulmonary abnormality is detected. CT chest - IMPRESSION: 1. Single tiny pulmonary emboli in a segmental pulmonary artery and a subsegmental branch in the right lower lobe. 2. No other definite pulmonary emboli are seen, however, the smaller pulmonary arteries are not optimally delineated in this patient. 3. Old healed granulomatous disease in the chest. 4. Several noncalcified bilateral pulmonary nodules are evident. While these may represent noncalcified granulomas, metastatic disease cannot be excluded. 5. Extensive coronary artery calcifications. LEUS- IMPRESSION: No evidence of deep venous thrombosis. Assessment/Plan 1. chest pain, atypical - ND ruled out. 2. history of coronary artery disease 3. accelerated hypertension - improved with home meds 4. PE - on lovanox, mgmt per PCP 5. cholecystitis - was scheduled for surgery tomorrow 6. hyperlipidemia - check lipids 7. ? diabetes mellitus - check A1C Will check echocardiogram and request prior cardiac cath report. Would likely benefit from stress testing to evaluate ischemic burden but could be done outpatient. Mgmt of PE per PCP. Currently she has a revised cardiac risk index of class III to IV for non cardiac surgery. Problems: ROSALIND LAZCANO APRN July 24, 2016 08:54
[2016-07-24] MEDS ORDERED: MAGNESIUM SULFATE 1GM 100 ML IV ONE (10:15)
[2016-07-24] MEDS: RIVAROXABAN 10 MG TABLET. PO SCH (11:13)
--- NOTE | 2016-07-24 17:00 | CARD ---
APPROVED REPORT EXAM: Two-dimensional and M-mode echocardiogram with Doppler and color Doppler. Other Information Quality : GoodHR: 56bpm Rhythm : Bradycardia INDICATION Chest Pain RISK FACTORS Hypertension Obesity 2D DIMENSIONS RVDd2.7 (2.9-3.5cm)Left Atrium(2D)3.3 (1.6-4.0cm) IVSd1.2 (0.7-1.1cm)Aortic Root(2D)2.8 (2.0-3.7cm) LVDd5.0 (3.9-5.9cm)LVOT Diameter2.1 (1.8-2.4cm) PWd1.1 (0.7-1.1cm)LVDs3.0 (2.5-4.0cm) FS (%) 40.6 %SV83.9 ml Aortic Valve AoV Peak Az.159.4cm/sAoV VTI32.4cm AO Peak GR.10.2mmHgLVOT Peak Az.106.1cm/s LVOT VTI 24.84cmAO Mean GR.5mmHg ALTAGRACIA (VMAX)2.93ia5LVE (VTI)2.68cm2 Mitral Valve MV E Qgdtsvif10.0cm/sMV E Peak Gr.5mmHg MV DECEL [id number] A Aaynlfdi358.7cm/s MV E Mean Gr.2mmHgE/A Ratio0.9 MV A [id number] Pulmonary Valve PV Peak Nmkpyfrq912.3cm/sPV Peak Grad.6mmHg Tricuspid Valve TR P. Yzmrxmsr371yq/sTR Peak Gr.25mmHg Pulmonary Vein S1 [place]24.0cm/sD2 Bkwtqgki63.6cm/s LEFT VENTRICLE The left ventricle is normal size. There is mild concentric left ventricular hypertrophy. The left ve ntricular systolic function is normal and the ejection fraction is within normal range. The Ejection Fraction is 60-65%. There is normal LV segmental wall motion. Transmitral Doppler flow pattern is Gra de I-abnormal relaxation pattern. RIGHT VENTRICLE The right ventricle is normal size. There is normal right ventricular wall thickness. The right ventr icular systolic function is normal. ATRIA The left atrium size is normal. The right atrium size is normal. The interatrial septum is intact wit h no evidence for an atrial septal defect or patent foramen ovale as noted on 2-D or Doppler imaging. AORTIC VALVE The aortic valve is mildly sclerotic. The aortic valve is trileaflet. Doppler and Color Flow revealed trace aortic regurgitation. There is no significant aortic valvular stenosis. MITRAL VALVE Mitral annular calcification is mild. The mitral valve leaflets are thickened. There is no evidence o f mitral valve prolapse. There is no mitral valve stenosis. Doppler and Color Flow revealed trace karthik ral regurgitation. TRICUSPID VALVE Doppler and Color Flow revealed mild tricuspid regurgitation. The pulmonary artery systolic pressure is estimated at 28 mmHg. PULMONIC VALVE Doppler and Color Flow revealed trace pulmonic valvular regurgitation. There is no pulmonic valvular stenosis. GREAT VESSELS The aortic root is normal in size. The ascending aorta is normal in size. The pulmonary artery is nor mal. The IVC is normal in size and collapses >50% with inspiration. PERICARDIAL EFFUSION There is no evidence of significant pericardial effusion. Critical Notification Critical Value: No <Conclusion> The left ventricle is normal size. The left ventricular systolic function is normal and the ejection fraction is within normal range. The Ejection Fraction is 60-65%. There is mild concentric left ventricular hypertrophy. There is no significant aortic valvular stenosis. Doppler and Color Flow revealed trace aortic regurgitation. Doppler and Color Flow revealed trace mitral regurgitation. Doppler and Color Flow revealed mild tricuspid regurgitation. The pulmonary artery systolic pressure is estimated at 28 mmHg.
[2016-07-24] MEDS: POLYVINYL ALCOHOL/POVIDONE/PF OPHTH SOLUTION DROPERETTE. OU SCH (20:36)
[2016-07-24] MEDS: ATORVASTATIN CALCIUM 20 MG TABLET PO SCH (20:36)
--- NOTE | 2016-07-24 23:02 | PN ---
DATE: 07/24/2016 SUBJECTIVE: The patient is resting carefully this morning and making good progress overall. Had small pulmonary embolus, was admitted to the hospital for such. The patient has significant coronary artery disease. She has been having some pressure in the chest, so Cardiology is going to evaluate that also. Presently, she is not having any particular chest pressure. The patient is otherwise breathing well. OBJECTIVE: VITAL SIGNS: Blood pressure 160/76, respiratory rate 20, pulse 60, afebrile. GENERAL: The patient is alert and oriented. LUNGS: Diminished, but clear. CARDIOVASCULAR: Regular sinus rhythm. ABDOMEN: Soft, protuberant, nontender. EXTREMITIES: No clubbing, cyanosis or edema. IMPRESSION: Pulmonary embolus, chest pain, rule out angina, acute renal failure secondary to dehydration and yfwj-xt-jczqhngd protein malnutrition. MARK KNOWLES MD DR: OANH/arnulfo JOB#: [id number] / [id number]
[2016-07-25 02:47] VITALS: BP 135/57
[2016-07-25 05:00] VITALS: BP 166/85
[2016-07-25] MEDS: LEVOTHYROXINE 125 MCG TABLET PO SCH (07:29)
[2016-07-25] MEDS: POLYVINYL ALCOHOL/POVIDONE/PF OPHTH SOLUTION DROPERETTE. OU SCH (08:59)
[2016-07-25] MEDS: LOTEPREDNOL ETAB 0.5% OPHTH SUSPENSION 5ML BOTTLE. OU SCH (08:59)
[2016-07-25] MEDS: ASPIRIN 81 MG TAB.CHEW PO SCH (08:59)
[2016-07-25] MEDS ORDERED: HYDROCHLOROTHIAZIDE 25 MG TABLET PO SCH (09:00)
[2016-07-25] MEDS ORDERED: LOSARTAN 50 MG TABLET. PO SCH (09:00)
[2016-07-25] MEDS: CYCLOSPORINE 0.05% OPTH DROPERETTE. OU SCH (09:00)
[2016-07-25 09:04] VITALS: BP 166/85
[2016-07-25] MEDS: METOPROLOL TART IMMED RELEASE 50 MG TABLET PO SCH (09:04)
[2016-07-25] MEDS: DOXYCYCLINE HYCLATE 100 MG TABLET PO SCH (09:04)
[2016-07-25] MEDS: RIVAROXABAN 10 MG TABLET. PO SCH (09:05)
[2016-07-25] MEDS ORDERED: LOSA1TAB17 PO ×3 (10:02→17:13)
[2016-07-25] MEDS ORDERED: RIVA10TA PO ×2 (10:08→10:12)
[2016-07-25] MEDS ORDERED: DOXY100C14 PO ×2 (10:12→10:21)
== END 2016-07-25 10:30 | disposition home or self-care (01) ==
LOC: ER 09:30 → INTOOBSV 15:50 → ICU 15:50
PROVIDERS: ADMIT Family Medicine; ATTEND Family Medicine
DX: R07.89 Other chest pain (principal); I25.10 Atherosclerotic heart disease of native coronary artery without angina pectoris; I10 Essential (primary) hypertension; I26.99 Other pulmonary embolism without acute cor pulmonale; K81.9 Cholecystitis, unspecified; E78.5 Hyperlipidemia, unspecified; E03.9 Hypothyroidism, unspecified; M19.90 Unspecified osteoarthritis, unspecified site; G89.29 Other chronic pain; E66.9 Obesity, unspecified; E11.9 Type 2 diabetes mellitus without complications; E86.0 Dehydration; N17.9 Acute kidney failure, unspecified; E44.0 Moderate protein-calorie malnutrition; Z86.73 Personal history of transient ischemic attack (TIA), and cerebral infarction without residual deficits; Z83.3 Family history of diabetes mellitus; Z82.49 Family history of ischemic heart disease and other diseases of the circulatory system
CPT/HCPCS: 36415; 71010; 71275; 80053; 80061; 81001; 82553; 83690; 83735; 83880; 84443; 84484; 85027; 85610; 85730; 87641; 93005; 93306; 93970; 96361; 96365; 96372; 99285; G0378; J1650; J3475; J7030; Q9967; 96360; G0379

== ENCOUNTER 2016-08-09 15:28 | Emergency (ER) | payer OTHER ==
[~2016-08-09] VITALS: Ht 154.9 cm; Wt 113.7 kg
[~2016-08-09 15:28] MED LIST changes: -HYDR-2666 PO; +HYDR-2758 PO; +LOSA1TAB16 PO; +LOSA1TAB17 PO; +RIVA10TA PO
[2016-08-09 16:09] VITALS: BP 127/77
[2016-08-09] MEDS ORDERED: CONTRAST GIVEN MC PRN (16:15)
--- NOTE | 2016-08-09 16:18 | ED.ADGEN ---
Past History Past Medical History: Gallstones, High Cholesterol, Hypertension, Hypothyroid Past Surgical History: Knee Replacement, Tubal ligation, Other Smoking: Non-smoker Alcohol Use: None Drug Use: None Adult General Chief Complaint Chief Complaint Abdominal cramping, rectal bleeding HPI HPI Patient is a 65-year-old female with recent diagnosis of pulmonary embolus currently on Xarelto presents with increased abdominal cramping this morning with dark red blood mixed in stools. Patient has had 2 episodes of rectal bleeding today. She is not lightheaded or dizzy or short of breath. Reports chronic abdominal pain and area of known abdominal wall hernia. No nausea vomiting fever chills or sweats. No other acute symptoms or complaints. Review of Systems Review of Systems Review symptoms as per history of present illness. All other review symptoms are negative. Current Medications Current Medications Current Medications Medications (Trade) Dose Ordered Sig/Alejandrina Start Time Stop Time Status Last Admin Dose Admin Info (Do NOT chart on this entry -- for MONITORING) 1 each PRN DAILY PRN 08/09/16 16:15 08/11/16 16:14 Iohexol (Omnipaque 300 Mg/ml) 75 ml 1X ONCE 08/09/16 16:30 08/09/16 16:31 DC 08/09/16 16:34 75 ML Allergies Allergies Allergies Coded Allergies Type Severity Reaction Last Updated Verified niacin Allergy Unknown 09/23/13 No Physical Exam Physical Exam Constitutional: Well developed, well nourished, no acute distress, non-toxic appearance. HENT: Normocephalic, atraumatic, bilateral external ears normal, oropharynx moist, no oral exudates, nose normal. Eyes: PERRLA, EOMI, conjunctiva normal, no discharge. Neck: Normal range of motion, no tenderness, supple, no stridor. Cardiovascular:Heart rate regular rhythm, no murmur. Lungs & Thorax: Bilateral breath sounds clear to auscultation. Abdomen: Bowel sounds normal, soft, no tenderness, no masses, no pulsatile masses. Obesity compromising exam. Skin: Warm, dry. Back: No tenderness, no CVA tenderness. Extremities: No tenderness, no cyanosis, no clubbing, ROM intact, no edema. Neurologic: Alert and oriented X 3, normal motor function, normal sensory function, no focal deficits noted. Psychologic: Affect normal, judgement normal, mood normal. Current Patient Data Vital Signs Vital Signs Date Time Temp Pulse Resp B/P (MAP) Pulse Ox O2 Delivery O2 Flow Rate FiO2 08/09/16 15:41 98.0 87 13 96 Room Air Lab Results Laboratory Tests Test 08/09/16 16:00 White Blood Count 6.3 x10^3/uL (4.0-11.0) Red Blood Count 4.62 x10^6/uL (3.50-5.40) Hemoglobin 14.9 g/dL (12.0-15.5) Hematocrit 42.3 % (36.0-47.0) Mean Corpuscular Volume 91 fL (79-100) Mean Corpuscular Hemoglobin 32 pg (25-35) Mean Corpuscular Hemoglobin Concent 35 g/dL (31-37) Red Cell Distribution Width 13.0 % (11.5-14.5) Platelet Count 258 x10^3/uL (140-400) Neutrophils (%) (Auto) 44 % (31-73) Lymphocytes (%) (Auto) 35 % (24-48) Monocytes (%) (Auto) 14 % (0-9) H Eosinophils (%) (Auto) 6 % (0-3) H Basophils (%) (Auto) 1 % (0-3) Neutrophils # (Auto) 2.8 x10^3uL (1.8-7.7) Lymphocytes # (Auto) 2.2 x10^3/uL (1.0-4.8) Monocytes # (Auto) 0.9 x10^3/uL (0.0-1.1) Eosinophils # (Auto) 0.3 x10^3/uL (0.0-0.7) Basophils # (Auto) 0.1 x10^3/uL (0.0-0.2) Prothrombin Time 18.9 SEC (9.4-11.4) H Prothrombin Time INR 1.8 (0.9-1.1) H Sodium Level 142 mmol/L (136-145) Potassium Level 3.6 mmol/L (3.5-5.1) Chloride Level 103 mmol/L (98-107) Carbon Dioxide Level 30 mmol/L (21-32) Anion Gap 9 (6-14) Blood Urea Nitrogen 22 mg/dL (7-20) H Creatinine 1.3 mg/dL (0.6-1.0) H Estimated GFR (Cockcroft-Gault) 41.0 BUN/Creatinine Ratio 17 (6-20) Glucose Level 95 mg/dL (70-99) Calcium Level 9.3 mg/dL (8.5-10.1) Total Bilirubin 0.7 mg/dL (0.2-1.0) Aspartate Amino Transferase (AST) 50 U/L (15-37) H Alanine Aminotransferase (ALT) 41 U/L (14-59) Alkaline Phosphatase 78 U/L (46-116) Total Protein 8.6 g/dL (6.4-8.2) H Albumin 3.4 g/dL (3.4-5.0) Albumin/Globulin Ratio 0.7 (1.0-1.7) L EKG EKG [] Radiology/Procedures Radiology/Procedures [CT abdomen pelvis: No acute intercranial abdominal disease per radiology report ] Course & Med Decision Making Course & Med Decision Making Pertinent Labs and Imaging studies reviewed. (See chart for details) [Gi bleed, currently on Xarelto. Vital signs stable. Dr. Collins accepts to [facility]. ] Final Impression Final Impression [1. GI bleed 2. Anticoagulation therapy 3. H/o PE ] Problems: Dragon Disclaimer Dragon Disclaimer This electronic medical record was generated, in whole or in part, using a voice recognition dictation system. DELORIS ZAPATA DO August 09, 2016 16:18
[2016-08-09 16:28] LABS: BASO # 0.1 x10^3/uL (0.0-0.2); BASO % 1 % (0-3); EOS # 0.3 x10^3/uL (0.0-0.7); EOS % 6 % (0-3); HEMATOCRIT 42.3 % (36.0-47.0); HEMOGLOBIN 14.9 g/dL (12.0-15.5); LYMPH # 2.2 x10^3/uL (1.0-4.8); LYMPH % 35 % (24-48); MEAN CORPUSCULAR HEMOGLOBIN 32 pg (25-35); MEAN CORPUSCULAR HGB CONC 35 g/dL (31-37); MEAN CORPUSCULAR VOLUME 91 fL (79-100); MONO # 0.9 x10^3/uL (0.0-1.1); MONO % 14 % (0-9); NEUT # 2.8 x10^3uL (1.8-7.7); NEUT % 44 % (31-73); PLATELET COUNT 258 x10^3/uL (140-400); RED BLOOD COUNT 4.62 x10^6/uL (3.50-5.40); WHITE BLOOD COUNT 6.3 x10^3/uL (4.0-11.0)
[2016-08-09 16:29] LABS: ALBUMIN 3.4 g/dL (3.4-5.0); ALBUMIN/GLOBULIN RATIO 0.7 (1.0-1.7); CALCIUM 9.3 mg/dL (8.5-10.1); CREATININE 1.3 mg/dL (0.6-1.0); POTASSIUM 3.6 mmol/L (3.5-5.1); TOTAL BILIRUBIN 0.7 mg/dL (0.2-1.0); TOTAL PROTEIN 8.6 g/dL (6.4-8.2)
[2016-08-09] MEDS ORDERED: IOHEXOL 300 MG/ML 75 ML VIAL. IV ONE (16:30)
--- NOTE | 2016-08-09 16:54 | RAD ---
Examination: CT of the abdomen pelvis with IV contrast History: History of abdominal pain, GI bleed Comparison: 06/07/2016 Technique: Axial CT images of the abdomen pelvis were performed with IV contrast. Coronal and sagittal reformats are performed PQRS Compliance Statement: One or more of the following individualized dose reduction techniques were utilized for this examination: 1. Automated exposure control 2. Adjustment of the mA and/or kV according to patient size 3. Use of iterative reconstruction technique Findings Small 4 mm nodules identified in the right lower lobe of the lungs grossly similar to prior exam. Unchanged mild hepatosplenomegaly.. Few calcified granulomas identified in the spleen. The gallbladder is mildly distended. Small gallstone identified within the gallbladder similar to prior exam The visualized pancreas grossly appears unremarkable. Small umbilical hernia identified. The bilateral kidneys enhance symmetrically. Mild thickened appearance of the stomach wall. The small bowel is nondilated. Feces and gas noted in the colon. In the mid transverse colon there is a small region of nondistention or mild focal colitis. Few sigmoid colon diverticulosis identified. Circumaortic left renal vein identified The urinary bladder is mildly distended. The visualized uterus, adnexa grossly appears unremarkable Mild aortic atherosclerosis. The appendix is not clearly identified. Moderate degenerative changes lumbar spine. L5 spondylolysis with mild anterolisthesis of L5 on S1 unchanged. Impression: 1. Mild focal thickening identified in the mid transverse colon region likely seen nondistention or mild focal colitis.. 2. Gallstone in the gallbladder 3. Mild hepatosplenomegaly. 4. Mild thickened appearance of the stomach wall probably due to nondistention or underlying mucosal pathology. 5. Small right lung base pulmonary nodules measuring 4 mm similar to prior exam.
== END 2016-08-09 19:30 | disposition short-term general hospital (02) ==
LOC: ER 15:28
DX: K92.2 Gastrointestinal hemorrhage, unspecified (principal); E03.9 Hypothyroidism, unspecified; E78.00 Pure hypercholesterolemia, unspecified; I10 Essential (primary) hypertension; Z86.711 Personal history of pulmonary embolism; Z79.01 Long term (current) use of anticoagulants; Z88.1 Allergy status to other antibiotic agents
CPT/HCPCS: 36415; 74177; 80053; 85027; 85610; 99285; Q9967

== ENCOUNTER → 2016-08-15 | Outpatient (CLI) | payer OTHER ==
[2016-08-09 16:09] VITALS: BP 127/77
--- NOTE | 2016-08-15 14:35 | RAD ---
Indication shortness of breath. PA and lateral views of the chest were obtained. Comparison is made to an examination 07/23/2016. The heart and pulmonary vessels are normal. The lungs are clear. There is no pleural fluid or pneumothorax. Bony structures appear grossly intact given the patient's age. IMPRESSION: No acute or focal process seen in the chest
--- NOTE | 2016-08-15 16:08 | RAD ---
Ventilation/perfusion lung scan, 08/15/2016: History: Follow-up pulmonary emboli The ventilation study was performed utilizing 11 mCi of xenon-133. Activity in the lungs is heterogeneous, probably related to the patient's size. There is fairly good washout of the xenon from the lungs. Perfusion imaging was performed utilizing 5.5 mCi of technetium 99m MAA. Similar heterogeneous activity is present in the lungs. No significant unmatched or segmental perfusion defects are seen. IMPRESSION: Low probability of pulmonary emboli.
== END | disposition home or self-care (01) ==
LOC: CT 12:40
PROVIDERS: ATTEND Nurse Practitioner Family
DX: I26.90 Septic pulmonary embolism without acute cor pulmonale (principal); R06.02 Shortness of breath; Z86.711 Personal history of pulmonary embolism
CPT/HCPCS: 71020; 78582; 96374; A9540; A9558

== ENCOUNTER → 2016-10-22 | Outpatient (CLI) | payer OTHER ==
--- NOTE | 2016-10-22 16:33 | RAD ---
DATE: October 22, 2016 EXAM: DIGITAL SCREEN BILAT W/CAD HISTORY: Screening mammogram COMPARISON: None. This study was interpreted with the benefit of Computerized Aided Detection (CAD). The breast parenchyma shows scattered fibroglandular densities. Breast parenchyma level B. FINDINGS: Digital 2-D CC and MLO views of both breasts. No suspicious mass, calcification or architectural distortion in either breast IMPRESSION: No mammographic evidence to suggest malignancy. BI-RADS 1, negative. Recommend routine screening mammogram in 12 months. BI-RADS CATEGORY: 1 NEGATIVE RECOMMENDED FOLLOW-UP: 12M 12 MONTH FOLLOW-UP PQRS compliance statement: Patient information was entered into a reminder system with a target due date October 2017. for the next mammogram. Mammography is a sensitive method for finding small breast cancers, but it does not detect them all and is not a substitute for careful clinical examination. A negative mammogram does not negate a clinically suspicious finding and should not result in delay in biopsying a clinically suspicious abnormality. "Our facility is accredited by the [employer] Mammography Program."
== END | disposition home or self-care (01) ==
LOC: MAMMO 09:46
PROVIDERS: ATTEND Family Medicine
DX: Z12.31 Encounter for screening mammogram for malignant neoplasm of breast (principal)
CPT/HCPCS: G0202; 77067

== ENCOUNTER → 2016-12-13 | Outpatient (CLI) | payer OTHER ==
[~2016-12-13] MED LIST changes: +BARIUM SULFATE 60% 355 ML SUSP PO ONE; +BARIUM SULFATE 98% 135 ML SUSP PO ONE; -METO50TA10 PO; +METO50TA29 PO; -OXYC5TAB PO; +OXYC5TAB95 PO
--- NOTE | 2016-12-13 10:11 | RAD ---
Double contrast upper GI with small bowel follow-through, 12/13/2016: History: Abdominal pain The preliminary abdominal image demonstrates a nonspecific gas pattern. Surgical clips are present in the right upper quadrant compatible with a previous cholecystectomy. Arterial calcifications are evident. The study was performed utilizing high density barium and gas-forming crystals followed by regular liquid barium. 4.0 minutes of fluoroscopy time was utilized. 15 static and dynamic fluoroscopic sequences were recorded. The swallowing mechanism is intact. The esophageal peristalsis is normal. No hiatal hernia or gastroesophageal reflux was demonstrated. The stomach and duodenal bulb show no evidence of ulceration or mass. The small bowel loops are of normal caliber with no evidence of thickening of their folds. There was prompt passage of barium through the small bowel into the colon. The terminal ileum is unremarkable. IMPRESSION: No significant upper GI or small bowel abnormality is detected.
== END | disposition home or self-care (01) ==
LOC: DXRAD 07:52
PROVIDERS: ATTEND Internal Medicine Gastroenterology
DX: R10.9 Unspecified abdominal pain (principal); R19.7 Diarrhea, unspecified
CPT/HCPCS: 74245

== ENCOUNTER → 2017-01-07 | Outpatient (CLI) | payer OTHER ==
[~2017-01-07] MED LIST changes: -BARIUM SULFATE 60% 355 ML SUSP PO ONE; -BARIUM SULFATE 98% 135 ML SUSP PO ONE; -LOSA1TAB16 PO; -LOSA1TAB17 PO; +LOSA1TAB19 PO; +LOSA1TAB22 PO
--- NOTE | 2017-01-07 14:18 | RAD ---
Indication postmenopausal bleeding. Initially transabdominal scans were obtained but the bladder was incompletely distended. Subsequently transvaginal scans were obtained. The uterus measures approximately 8 x 5 cm. The endometrium is heterogeneous and, additionally, significantly thickened for a postmenopausal woman. The endometrium measures approximately 1.6 cm. Malignancy is not excluded. There is a uterine mass, compatible with a fibroid, measuring approximately 1.5 cm in greatest dimension. The ovaries appeared unremarkable. IMPRESSION: Thickened endometrium for a postmenopausal woman. Malignancy is not excluded. Fibroid uterus. Normal ovaries
== END | disposition home or self-care (01) ==
LOC: US 10:15
PROVIDERS: ATTEND Nurse Practitioner Family
DX: D25.9 Leiomyoma of uterus, unspecified (principal); R93.8 Abnormal findings on diagnostic imaging of other specified body structures
CPT/HCPCS: 76830; 76856

== ENCOUNTER 2017-03-11 16:00 | Emergency (ER) | payer OTHER ==
[~2017-03-11] VITALS: Ht 167.6 cm; Wt 113.4 kg
[~2017-03-11 16:00] MED LIST changes: -METO50TA2 PO; +METO50TA6 PO
[2017-03-11 17:30] LABS: BASO % 1 % (0-3); EOS # 0.3 x10^3/uL (0.0-0.7); EOS % 6 % (0-3); HEMATOCRIT 40.6 % (36.0-47.0); HEMOGLOBIN 14.2 g/dL (12.0-15.5); LYMPH # 1.7 x10^3/uL (1.0-4.8); LYMPH % 35 % (24-48); MEAN CORPUSCULAR HEMOGLOBIN 33 pg (25-35); MEAN CORPUSCULAR HGB CONC 35 g/dL (31-37); MEAN CORPUSCULAR VOLUME 95 fL (79-100); MONO # 0.7 x10^3/uL (0.0-1.1); MONO % 14 % (0-9); NEUT # 2.2 x10^3uL (1.8-7.7); NEUT % 44 % (31-73); PLATELET COUNT 212 x10^3/uL (140-400); RED CELL DISTRIBUTION WIDTH 13.4 % (11.5-14.5); WHITE BLOOD COUNT 4.9 x10^3/uL (4.0-11.0)
[2017-03-11 17:33] LABS: ALBUMIN 3.3 g/dL (3.4-5.0); TOTAL PROTEIN 8.2 g/dL (6.4-8.2)
[2017-03-11 17:34] LABS: ALBUMIN/GLOBULIN RATIO 0.7 (1.0-1.7); CALCIUM 9.7 mg/dL (8.5-10.1); CREATININE 1.1 mg/dL (0.6-1.0); GFR 49.5; POTASSIUM 3.9 mmol/L (3.5-5.1); TOTAL BILIRUBIN 0.6 mg/dL (0.2-1.0)
[2017-03-11 17:34] LABS: BARBITURATES NEG (NEG); BENZODIAZEPINES NEG (NEG); CANNABINOIDS NEG (NEG); COCAINE NEG (NEG); METHADONE NEG (NEG); OPIATES NEG (NEG); PHENCYCLIDINE NEG (NEG)
--- NOTE | 2017-03-11 17:35 | PHYS DOC ---
Past History Past Medical History: No Pertinent History, Gallstones, High Cholesterol, Hypertension, Hypothyroid Past Surgical History: Knee Replacement, Tubal ligation, Other Smoking: Non-smoker Alcohol Use: None Drug Use: None Adult General Chief Complaint Chief Complaint: ABDOMINAL PAIN [facility] 66-year-old female patient with history of chronic lower abdominal pain for long time complaining of left upper quadrant pain for the last 3 weeks as a constant pain with radiation to her flank. Patient states the pain is tightness and aching and getting worse with sitting up and associated with shortness of breath when she is sitting up. Patient denies nausea, vomiting, diarrhea, urinary symptoms, fever and chills, chest pain. Patient complaining of chronic constipation. Patient rated her pain 5 to 9/10. Patient states she was seen by her GI specialist regarding chronic lower abdominal pain frequently and had unremarkable colonoscopy and EGD few months ago. Patient states she does not have any pain medication at home and was seen by her primary care physician 1 week ago regarding some lab tests and her primary care physician did not address her pain. Review of Systems Review of Systems Constitutional: Denies fever or chills [] Eyes: Denies change in visual acuity, redness, or eye pain [] HENT: Denies nasal congestion or sore throat [] Respiratory: Denies cough or shortness of breath [] Cardiovascular: No additional information not addressed in HPI [] GI: Denies nausea, vomiting, bloody stools or diarrhea, reports constipation and abdominal pain [] : Denies dysuria or hematuria [] Musculoskeletal: Denies back pain or joint pain [] Integument: Denies rash or skin lesions [] Neurologic: Denies headache, focal weakness or sensory changes [] Endocrine: Denies polyuria or polydipsia [] All other systems were reviewed and found to be within normal limits, except as documented in this note. Allergies Allergies Allergies Coded Allergies Type Severity Reaction Last Updated Verified niacin Allergy Unknown 09/23/13 No Physical Exam Physical Exam Constitutional: Well developed, well nourished, no acute distress, non-toxic appearance. [] HENT: Normocephalic, atraumatic, bilateral external ears normal, oropharynx moist, no oral exudates, nose normal. [] Eyes: PERRLA, EOMI, conjunctiva normal, no discharge. [] Neck: Normal range of motion, no tenderness, supple, no stridor. [] Cardiovascular:Heart rate regular rhythm, no murmur [] Lungs & Thorax: Bilateral breath sounds clear to auscultation [] Abdomen: Bowel sounds normal, soft, no tenderness, no masses, no pulsatile masses. [] Skin: Warm, dry, no erythema, no rash. [] Back: No tenderness, no CVA tenderness. [] Extremities: No tenderness, no cyanosis, no clubbing, ROM intact, no edema. [] Neurologic: Alert and oriented X 3, normal motor function, normal sensory function, no focal deficits noted. [] Psychologic: Affect normal, judgement normal, mood normal. [] Current Patient Data Vital Signs Vital Signs Date Time Temp Pulse Resp B/P (MAP) Pulse Ox O2 Delivery O2 Flow Rate FiO2 03/11/17 16:16 98.1 96 18 96 Room Air EKG EKG [] Radiology/Procedures Radiology/Procedures [] Course & Med Decision Making Course & Med Decision Making Pertinent Labs and imaging studies reviewed. (See chart for details) Evaluation of patient in ER showed 66-year-old female patient with history of chronic abdominal pain with complaining of new left upper quadrant pain for the last 3 weeks. Patient had morbid obesity without abnormal finding in her abdominal exam. Labs and x-rays pending. Patient care transferred to incoming ER physician Dr. Kim at 1800 [] Dragon Disclaimer Dragon Disclaimer This electronic medical record was generated, in whole or in part, using a voice recognition dictation system. Departure Departure: Referrals: MARK KNOWLES MD (PCP) DENTON TRIPLETT MD Mar 11, 2017 17:35
[2017-03-11 17:40] LABS: AMPHETAMINE/METHAMPHETAMINE NEG (NEG)
[2017-03-11 17:59] LABS: BACTERIA,URINE FEW /HPF (0-FEW); BILIRUBIN,URINE NEG (NEG); CLARITY,URINE CLEAR; COLOR,URINE YELLOW; GLUCOSE,URINE NEG (NEG); NITRITE,URINE NEG (NEG); RBC,URINE 0 /HPF (0-2); SQUAMOUS EPITHELIAL CELL,UR FEW /LPF; UROBILINOGEN,URINE 0.2 mg/dL (0.2 mg/dL); WBC,URINE OCC /HPF (0-4)
--- NOTE | 2017-03-11 18:23 | EKG ---
[address] [address] Test Date: 2017-03-11 Test Time: 17:36:17 Pat Name: JOHN GOODSON Department: Room: Gender: F Sane Rn: CYNDI : 1950 Requested By: DENTON TRIPLETT Order Number: [id number] Reading MD: Measurements Intervals [place] Rate: 59 P: 34 [place]: 162 QRS: 44 QRSD: 90 T: 66 QT: 428 QTc: 428 Interpretive Statements SINUS RHYTHM NO SPECIFIC ECG ABNORMALITIES RI6.01 Unconfirmed report No previous ECG available for comparison
[2017-03-11] MEDS ORDERED: TRAM-48 PO (18:58)
[2017-03-11] MEDS ORDERED: METO10TA81 PO (18:58)
--- NOTE | 2017-03-11 18:58 | PHYS DOC ---
Departure Departure: Impression: Primary Impression: Abdominal pain Disposition: HOME, SELF-CARE Condition: IMPROVED Referrals: MARK KNOWLES MD (PCP) Patient Instructions: Abdominal Pain (Nonspecific), Gastroparesis Additional Instructions: Please make sure he keep her appointment on with her primary care physician. You'll be given a prescription for Reglan as well as Ultram to last you until when he see her doctor. Please return the ER if your pain worsens in any way or if you have any further concerns. Scripts Metoclopramide Hcl (REGLAN) 10 Mg Tablet 1 TAB PO QID, #20 TAB Prov: RACQUEL PORTILLO MD 03/11/17 Tramadol Hcl (ULTRAM) 50 Mg Tablet 50 MG PO PRN Q6HRS Y for PAIN, #20 TAB Prov: RACQUEL PORTILLO MD 03/11/17 RACQUEL PORTILLO MD Mar 11, 2017 18:58
[2017-03-11] MEDS ORDERED: traMADol 50 MG TABLET PO ONE (19:00)
[2017-03-11] MEDS ORDERED: METOCLOPRAMIDE HCL 10 MG/2 ML VIAL. IV ONE (19:00)
[2017-03-11 19:08] VITALS: BP 132/87
--- NOTE | 2017-03-12 08:21 | RAD ---
PA view of the chest and supine and upright views of the abdomen were obtained. History: Pain Comparison: none The lungs and pleural margins are clear. There is stool scattered throughout the colon. There is a paucity of small bowel gas. There is no free air. There is no free air. Impression: Nonobstructive bowel gas pattern. Possible mild constipation.
== END 2017-03-11 19:09 | disposition home or self-care (01) ==
LOC: ER 16:00
DX: R10.12 Left upper quadrant pain (principal); G89.29 Other chronic pain; E78.00 Pure hypercholesterolemia, unspecified; E03.9 Hypothyroidism, unspecified; Z98.51 Tubal ligation status; Z88.1 Allergy status to other antibiotic agents
CPT/HCPCS: 36415; 74022; 80053; 80307; 81001; 83690; 84484; 85025; 93005; 99285-25; G0479

== ENCOUNTER 2017-06-07 09:09 | Emergency (ER) | payer OTHER ==
[~2017-06-07] VITALS: Ht 167.6 cm; Wt 113.7 kg
[~2017-06-07 09:09] MED LIST changes: +METO10TA81 PO; +TRAM-48 PO
--- NOTE | 2017-06-07 09:23 | EKG ---
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
[2017-06-07] MEDS ORDERED: METOPROLOL TARTRATE 5 MG/5 ML VIAL. IV ONE ×4 (09:28→11:30)
[2017-06-07] MEDS ORDERED: NITROGLYCERIN SUBLINGUAL 0.4 MG BOTTLE OF 25. SL PRN (09:30)
--- NOTE | 2017-06-07 09:33 | PHYS DOC ---
Past History Past Medical History: No Pertinent History, Gallstones, High Cholesterol, Hypertension, Hypothyroid Past Surgical History: Knee Replacement, Tubal ligation, Other Smoking: Non-smoker Alcohol Use: None Drug Use: None Adult General Chief Complaint Chief Complaint: CHEST PAIN HPI HPI Patient is a 69 year old female who presents with shortness of breath. She states she had a hysterectomy done in the April and was diagnosed yesterday with a urinary tract infection. She states she hasn't had time to start her antibiotics yet. 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 She states this is been intermittent since last night. She states today it occurred again and she feels short of breath she denies any chest pain or vomiting but feels some nausea currently. She states she feels a pounding sensation in her ears. She states she's never had A. fib before. She states she's been on Lovenox she's been taking it once daily but skipped her dose yesterday. She states she's been on this since her hysterectomy at the end of April. Review of Systems Review of Systems Constitutional: Denies fever or chills [] Eyes: Denies change in visual acuity, redness, or eye pain [] HENT: Denies nasal congestion or sore throat [] Respiratory: Denies cough or shortness of breath [] Cardiovascular: No additional information not addressed in HPI [] GI: Denies abdominal pain, nausea, vomiting, bloody stools or diarrhea [] : Denies dysuria or hematuria [] Musculoskeletal: Denies back pain or joint pain [] Integument: Denies rash or skin lesions [] Neurologic: Denies headache, focal weakness or sensory changes [] Endocrine: Denies polyuria or polydipsia [] All other systems were reviewed and found to be within normal limits, except as documented in this note. Current Medications Current Medications Current Medications Medications (Trade) Dose Ordered Sig/Alejandrina Start Time Stop Time Status Last Admin Dose Admin Metoprolol Tartrate (Lopressor Vial) 5 mg 1X ONCE 06/07/17 09:30 06/07/17 09:31 DC Nitroglycerin (Nitrostat) 0.4 mg PRN Q5MIN PRN 06/07/17 09:30 06/08/17 09:29 Allergies Allergies Allergies Coded Allergies Type Severity Reaction Last Updated Verified niacin Allergy Unknown 09/23/13 No Physical Exam Physical Exam Constitutional: Well developed, well nourished, no acute distress, non-toxic appearance. [] HENT: Normocephalic, atraumatic, bilateral external ears normal, oropharynx moist, no oral exudates, nose normal. [] Eyes: PERRLA, EOMI, conjunctiva normal, no discharge. [] Neck: Normal range of motion, no tenderness, supple, no stridor. [] Cardiovascular:Heart rate irregular with a tachycardic rhythm, no murmur [] Lungs & Thorax: Bilateral breath sounds clear to auscultation [] Abdomen: Bowel sounds normal, soft, no tenderness, no masses, no pulsatile masses. [] Skin: Warm, dry, no erythema, no rash. [] Back: No tenderness, no CVA tenderness. [] Extremities: No tenderness, no cyanosis, no clubbing, ROM intact, no edema. [] Neurologic: Alert and oriented X 3, normal motor function, normal sensory function, no focal deficits noted. [] Psychologic: Affect normal, judgement normal, mood normal. [] EKG EKG G shows irregular rhythm with rate of [address] elevations or T-wave inversions, normal axis, QTC 483 mEq, QRS 78 ms, as interpreted by me. Radiology/Procedures Radiology/[place] [address] IMAGING REPORT Signed PATIENT: JOHN GOODSON ACCOUNT: [id number] : 1950 LOCATION: ER AGE: 66 SEX: F EXAM STATUS: REG ER ORD. PHYSICIAN: JAZ BLOUNT MD REASON: chest pain PROCEDURE: PORTABLE CHEST 1V PROCEDURE: PORTABLE CHEST 1V CLINICAL INDICATION: chest pain cough for one day. COMPARISON: Previous study from 03/11/2017 FINDINGS: No pneumothorax identified. Cardiac and mediastinal contours unremarkable. No pulmonary consolidation or acute airspace disease. No acute osseous abnormalities identified. IMPRESSION: No pulmonary consolidation or acute airspace disease. DICTATED AND SIGNED BY: AUIDE MALDONADO DO DATE: 06/07/17 0949 CC: MARK KNOWLES MD; JAZ BLOUNT MD ~ Impressions: A. fib with RVR Acute on chronic renal failure Morbid obesity Hypothyroidism Hypokalemia Elevated d-dimer Course & Med Decision Making Course & Med Decision Making Pertinent Labs and Imaging studies reviewed. (See chart for details) Patient presents with A. fib with RVR and rates in the 170s. She was given 5 of metoprolol which slowed her down. She states she felt better with heart rate in the 1 teens to 120s. Her heart rate increased to the 150s again she had a second dose of metoprolol. She has an elevated d-dimer, but her GFR is in the 30 's, therefore will full dose Lovenox and hold off on CT angios this time. She denied any chest pain during her ER visit. She states she has been on Lovenox at home she is taking daily but she's unsure of the dose. Spoke with cardiology at [place] who does recommend her being transferred there. I spoke with the hospitalist regarding the patient's presentation, labs, EKG and medicines given. Her potassium is 3.1 and at this time we have not replaced it. Will defer to transferring facility to adjust her electrolytes. She is in stable condition at this time being transferred. I spent approximately 55 minutes working and engaged directly in the patient care providing critical care evaluation this includes but not limited to time spent engaged in work directly related to the individual patients care. I spent time at the bedside, reviewing test results, discussing the case with staff, documenting the medical record and time spent with EMS discussing specific treatment issues when the patient presented and during his evaluation. This includes any discussion and updates with family members and/or patient. Dragon Disclaimer Dragon Disclaimer This electronic medical record was generated, in whole or in part, using a voice recognition dictation system. Departure Departure: Impression: Primary Impression: Afib Disposition: 05 XFER OTHER Condition: STABLE Referrals: MARK KNOWLES MD (PCP) Problem Qualifiers Primary Impression: Afib Atrial fibrillation type: unspecified Qualified Codes: I48.91 - Unspecified atrial fibrillation JAZ BLOUNT MD Jun 07, 2017 09:33
[2017-06-07 09:35] LABS: BASO % 0 % (0-3); EOS # 0.2 x10^3/uL (0.0-0.7); EOS % 2 % (0-3); HEMATOCRIT 43.7 % (36.0-47.0); HEMOGLOBIN 15.3 g/dL (12.0-15.5); LYMPH # 2.5 x10^3/uL (1.0-4.8); LYMPH % 22 % (24-48); MEAN CORPUSCULAR HEMOGLOBIN 33 pg (25-35); MEAN CORPUSCULAR HGB CONC 35 g/dL (31-37); MEAN CORPUSCULAR VOLUME 95 fL (79-100); MONO # 1.5 x10^3/uL (0.0-1.1); MONO % 13 % (0-9); NEUT # 7.1 x10^3uL (1.8-7.7); NEUT % 63 % (31-73); PLATELET COUNT 324 x10^3/uL (140-400); RED BLOOD COUNT 4.58 x10^6/uL (3.50-5.40); RED CELL DISTRIBUTION WIDTH 13.3 % (11.5-14.5); WHITE BLOOD COUNT 11.3 x10^3/uL (4.0-11.0)
--- NOTE | 2017-06-07 09:52 | RAD ---
PROCEDURE: PORTABLE CHEST 1V CLINICAL INDICATION: chest pain cough for one day. COMPARISON: Previous study from 03/11/2017 FINDINGS: No pneumothorax identified. Cardiac and mediastinal contours unremarkable. No pulmonary consolidation or acute airspace disease. No acute osseous abnormalities identified. IMPRESSION: No pulmonary consolidation or acute airspace disease.
[2017-06-07 09:55] LABS: ALBUMIN 3.1 g/dL (3.4-5.0); ALK PHOS 52 U/L (46-116); ALT (SGPT) 25 U/L (14-59); ANION GAP 14 (6-14); AST (SGOT) 24 U/L (15-37); BLOOD UREA NITROGEN 23 mg/dL (7-20); CALCIUM 9.2 mg/dL (8.5-10.1); CARBON DIOXIDE 24 mmol/L (21-32); CHLORIDE 98 mmol/L (98-107); CREATININE 1.5 mg/dL (0.6-1.0); DIRECT BILIRUBIN 0.8 mg/dL (0.0-0.2); GFR 34.6; GLUCOSE 170 mg/dL (70-99); POTASSIUM 3.1 mmol/L (3.5-5.1); SODIUM 136 mmol/L (136-145); TOTAL BILIRUBIN 2.2 mg/dL (0.2-1.0); TOTAL PROTEIN 8.3 g/dL (6.4-8.2)
[2017-06-07] MEDS ORDERED: IV NORMAL SALINE 1,000ML 1,000 ML IV ONE (10:00)
[2017-06-07] MEDS ORDERED: ENOXAPARIN ** NOTE DOSE ** SYRINGE SQ ONE (10:30)
[2017-06-07 11:26] VITALS: BP 124/55
== END 2017-06-07 11:45 | disposition short-term general hospital (02) ==
LOC: ER 09:09
DX: I48.91 Unspecified atrial fibrillation (principal); N17.9 Acute kidney failure, unspecified; N18.9 Chronic kidney disease, unspecified; E03.9 Hypothyroidism, unspecified; E87.6 Hypokalemia; E66.01 Morbid (severe) obesity due to excess calories; R79.1 Abnormal coagulation profile; I10 Essential (primary) hypertension; E78.00 Pure hypercholesterolemia, unspecified; Z68.41 Body mass index [BMI] 40.0-44.9, adult; Z88.1 Allergy status to other antibiotic agents
CPT/HCPCS: 36415; 71045; 80048; 80076; 82553; 83880; 84443; 84484; 85025; 85379; 85610; 85730; 93005; 96361; 96372; 96374; 96376; 99291; J1650; J3490; J7030

== ENCOUNTER → 2017-12-12 | Outpatient (CLI) | payer OTHER ==
[~2017-12-12] MED LIST changes: -ASPI81TA44 PO; +ASPI81TA59 PO; +METF500T16 PO; -METF500T4 PO
--- NOTE | 2017-12-12 10:59 | RAD ---
EXAM: Bilateral lower extremity venous Doppler sonogram. HISTORY: Pain and swelling. TECHNIQUE: Vu scale and color Doppler sonographic evaluation of the bilateral lower extremity veins with spectral waveform analysis was performed. FINDINGS: The exam is limited due to body habitus. There is normal color flow, normal compressibility and there are normal spectral waveforms in the common femoral, superficial femoral, popliteal, posterior tibial and greater saphenous veins. IMPRESSION: No Doppler evidence of lower extremity deep venous thrombosis. Electronically signed by: Martine Martinez MD (12/12/2017 10:56 AM) [place] [id number]
== END | disposition home or self-care (01) ==
LOC: US 09:03
PROVIDERS: ATTEND Nurse Practitioner Adult Health
DX: M79.604 Pain in right leg (principal); M79.605 Pain in left leg; R22.43 Localized swelling, mass and lump, lower limb, bilateral; E78.5 Hyperlipidemia, unspecified; E78.00 Pure hypercholesterolemia, unspecified; E03.9 Hypothyroidism, unspecified; E87.6 Hypokalemia; I12.9 Hypertensive chronic kidney disease with stage 1 through stage 4 chronic kidney disease, or unspecified chronic kidney disease; E11.22 Type 2 diabetes mellitus with diabetic chronic kidney disease; N18.9 Chronic kidney disease, unspecified; I25.10 Atherosclerotic heart disease of native coronary artery without angina pectoris; I48.91 Unspecified atrial fibrillation; Z79.4 Long term (current) use of insulin; Z86.73 Personal history of transient ischemic attack (TIA), and cerebral infarction without residual deficits; Z88.1 Allergy status to other antibiotic agents; Z83.3 Family history of diabetes mellitus; Z82.49 Family history of ischemic heart disease and other diseases of the circulatory system
CPT/HCPCS: 93970

== ENCOUNTER 2018-01-24 10:13 | Observation (INO) | payer OTHER ==
[~2018-01-24] VITALS: Ht 154.9 cm; Wt 117.3 kg
[2018-01-24 10:53] VITALS: BP 121/72
[2018-01-24] MEDS ORDERED: traMADol 50 MG TABLET PO PRN (12:30)
[2018-01-24 12:55] LABS: BASO % 1 % (0-3); EOS # 0.2 x10^3/uL (0.0-0.7); EOS % 5 % (0-3); HEMOGLOBIN 13.7 g/dL (12.0-15.5); LYMPH # 1.5 x10^3/uL (1.0-4.8); LYMPH % 38 % (24-48); MEAN CORPUSCULAR HEMOGLOBIN 33 pg (25-35); MEAN CORPUSCULAR HGB CONC 34 g/dL (31-37); MEAN CORPUSCULAR VOLUME 97 fL (79-100); MONO # 0.5 x10^3/uL (0.0-1.1); MONO % 13 % (0-9); NEUT # 1.8 x10^3uL (1.8-7.7); NEUT % 43 % (31-73); PLATELET COUNT 203 x10^3/uL (140-400); RED BLOOD COUNT 4.14 x10^6/uL (3.50-5.40); RED CELL DISTRIBUTION WIDTH 13.2 % (11.5-14.5); WHITE BLOOD COUNT 4.1 x10^3/uL (4.0-11.0)
[2018-01-24] MEDS ORDERED: METOCLOPRAMIDE HCL PO SCH (13:00)
[2018-01-24 13:08] LABS: ALBUMIN/GLOBULIN RATIO 0.7 (1.0-1.7); CALCIUM 9.2 mg/dL (8.5-10.1); GFR 55.1; POTASSIUM 3.6 mmol/L (3.5-5.1); TOTAL BILIRUBIN 1.1 mg/dL (0.2-1.0); TOTAL PROTEIN 7.5 g/dL (6.4-8.2)
[2018-01-24 14:26] VITALS: BP 130/73
--- NOTE | 2018-01-24 15:01 | RAD ---
Chest, PA and Lateral: Technique: PA and lateral views of the chest were obtained. History: Shortness of breath. Comparison: 06/07/2017. Findings: The heart and pulmonary vasculature appear within normal limits. Minimal bibasilar lung atelectasis or infiltrates.. Moderate degenerative changes thoracic spine.. Impression: Minimal bibasilar lung atelectasis or infiltrates.. Electronically signed by: Marcus Andrew MD (01/24/2018 2:58 PM) [facility]
--- NOTE | 2018-01-24 16:53 | EKG ---
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
[2018-01-24] MEDS: LOTEPREDNOL ETAB 0.5% OPHTH SUSPENSION 5ML BOTTLE. OU SCH ×2 (17:00→20:00)
[2018-01-24 19:35] VITALS: BP 134/63
[2018-01-24] MEDS: cycloSPORINE 0.05% OPTH 1 DROP DROPERETTE OU SCH (20:00)
[2018-01-24] MEDS: GABAPENTIN 100 MG CAPSULE. PO SCH (20:01)
[2018-01-24] MEDS: APIXABAN 5 MG TABLET. PO SCH (20:01)
[2018-01-24] MEDS: METOPROLOL TART IMMED RELEASE 50 MG TABLET PO SCH (20:02)
[2018-01-24] MEDS ORDERED: ATORVASTATIN CALCIUM 20 MG TABLET PO SCH (21:00)
[2018-01-24] MEDS ORDERED: traMADol 50 MG TABLET PO ONE (21:00)
[2018-01-24] MEDS ORDERED: NON FORMULARY ITEM (Carboxymethylcellulos/Glycerin (Refresh Optive Eye Drops) 1 DROP) EACHEYE SCH (21:00)
[2018-01-24 23:23] VITALS: BP 130/68
[2018-01-25] MEDS ORDERED: LEVOTHYROXINE 125 MCG TABLET PO SCH (06:00)
[2018-01-25 06:10] VITALS: BP 123/62
[2018-01-25] MEDS ORDERED: ASPIRIN ENTERIC COATED 81 MG TABLET.DR. PO SCH (08:00)
--- NOTE | 2018-01-25 08:01 | RAD ---
Left shoulder 3 views. HISTORY: Recent fall left shoulder pain 3 views were taken of the left shoulder. There is arthritis at the AC joint with irregularity of the distal clavicle possibly even an old injury or old fracture. There is decreased space between the humeral head and acromion suggesting rotator cuff degeneration or rotator cuff tear. There are calcifications adjacent to the greater trochanter from old calcific tendinitis. There is no dislocation. There is mild arthritis at the glenohumeral joint. IMPRESSION: 1. Old injury or arthritis at the left AC joint. 2. Calcific tendinitis. 3. No acute fracture or dislocation. Electronically signed by: Kendall Xiao MD (01/25/2018 7:58 AM) [facility]
[2018-01-25] MEDS ORDERED: DOXYCYCLINE MONOHYDRATE PO SCH (09:00)
[2018-01-25] MEDS ORDERED: hydroCHLOROthiazide 25 MG TABLET PO SCH (09:00)
[2018-01-25] MEDS ORDERED: LOSARTAN 50 MG TABLET. PO SCH (09:00)
[2018-01-25] MEDS ORDERED: RIVAROXABAN 10 MG TABLET. PO SCH (09:00)
[2018-01-25] MEDS: GABAPENTIN 100 MG CAPSULE. PO SCH (09:13)
[2018-01-25] MEDS: METOPROLOL TART IMMED RELEASE 50 MG TABLET PO SCH (09:14)
[2018-01-25] MEDS: APIXABAN 5 MG TABLET. PO SCH (09:14)
[2018-01-25] MEDS: cycloSPORINE 0.05% OPTH 1 DROP DROPERETTE OU SCH (09:14)
[2018-01-25] MEDS: LOTEPREDNOL ETAB 0.5% OPHTH SUSPENSION 5ML BOTTLE. OU SCH (09:15)
[2018-01-25 11:19] VITALS: BP 151/74
--- NOTE | 2018-01-25 19:11 | DS ---
DATE OF DISCHARGE: 01/25/2018 HOSPITAL COURSE: A 67-year-old female came in with chest pain and new onset of atrial fibrillation with rapid ventricular response. She did extremely well. She wanted to be discharged home. Her labs were good and her EKG converted into sinus rhythm. Apparently, she had some shoulder pain and made good progress during the rest of her hospitalization. Her x-ray showed atelectasis, possible ____ but her lungs were clear. CV exam was regular sinus rhythm ____ blood pressure 150/70, respiratory rate 20, pulse 64, afebrile. She was told to follow up with her framer, to be on a heart healthy diet, decreased activity. Also, a diabetic controlled diet as well. Albumin also low at 3. IMPRESSION: Atrial fibrillation paroxysmal, chest pain, [id number] protein malnutrition, type 2 diabetes with morbid obesity. MARK KNOWLES MD DR: OANH/arnulfo JOB#: [id number] / [id number]
== END 2018-01-25 12:05 | disposition home or self-care (01) ==
LOC: 1 SOUTH 10:13 → INTOOBSV 10:13
PROVIDERS: ADMIT Family Medicine; ATTEND Family Medicine
DX: M25.512 Pain in left shoulder (principal); E11.40 Type 2 diabetes mellitus with diabetic neuropathy, unspecified; I10 Essential (primary) hypertension; I48.2 Chronic atrial fibrillation; J98.11 Atelectasis; E66.01 Morbid (severe) obesity due to excess calories; E44.0 Moderate protein-calorie malnutrition; E78.00 Pure hypercholesterolemia, unspecified; J45.909 Unspecified asthma, uncomplicated; Z88.8 Allergy status to other drugs, medicaments and biological substances; Z23 Encounter for immunization; Z68.42 Body mass index [BMI] 45.0-49.9, adult; Z90.710 Acquired absence of both cervix and uterus
CPT/HCPCS: 36415; 71046; 73030; 80053; 82550; 82947; 83735; 84443; 84484; 85025; 85379; 90471; 90756; 93005; G0378; G0379; Q2035

== ENCOUNTER 2018-02-20 11:22 | Inpatient (IN) | payer OTHER ==
[2018-02-20] VITALS (10 sets, daily range): BP systolic 90–164; BP diastolic 43–81
[~2018-02-20] VITALS: Ht 154.9 cm; Wt 120.2 kg
[2018-02-20] MEDS: IV NORMAL SALINE 1,000ML 1,000 ML IV SCH ×2 (04:35→12:42)
[~2018-02-20 11:22] MED LIST changes: +HYDR-2155 PO; -HYDR-2758 PO; +HYDR-3165 PO; -HYDR-971 PO; +OXYC5TAB4 PO; -OXYC5TAB95 PO
[2018-02-20] MEDS ORDERED: dilTIAZem 25 MG/5 ML VIAL IVP ONE ×2 (11:32→12:00)
--- NOTE | 2018-02-20 11:37 | EKG ---
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
[2018-02-20] MEDS ORDERED: IV DEXTROSE 5% 100 ML IV ONE (11:41)
--- NOTE | 2018-02-20 11:51 | RAD ---
Portable chest, 02/20/2018: HISTORY: Chest pain Comparison is made to a study from 01/24/2018. The heart size and pulmonary vascularity are normal. No pulmonary infiltrate is seen. There is no evidence of pleural fluid. IMPRESSION: No acute cardiopulmonary abnormality is detected. Electronically signed by: Manny Ward MD (02/20/2018 11:47 AM) [facility]
[2018-02-20] MEDS ORDERED: ASPIRIN 81 MG TAB.CHEW PO ONE (12:00)
[2018-02-20] MEDS ORDERED: dilTIAZem VIAL 125 MG in IV DEXTROSE 5% 100 ML IV ONE (12:00)
[2018-02-20 12:02] LABS: BASO # 0.1 x10^3/uL (0.0-0.2); BASO % 1 % (0-3); EOS % 0 % (0-3); HEMATOCRIT 42.9 % (36.0-47.0); HEMOGLOBIN 14.7 g/dL (12.0-15.5); LYMPH # 2.1 x10^3/uL (1.0-4.8); LYMPH % 22 % (24-48); MEAN CORPUSCULAR HEMOGLOBIN 33 pg (25-35); MEAN CORPUSCULAR HGB CONC 34 g/dL (31-37); MEAN CORPUSCULAR VOLUME 97 fL (79-100); MONO # 1.4 x10^3/uL (0.0-1.1); MONO % 15 % (0-9); NEUT % 62 % (31-73); PLATELET COUNT 185 x10^3/uL (140-400); RED BLOOD COUNT 4.45 x10^6/uL (3.50-5.40); RED CELL DISTRIBUTION WIDTH 13.4 % (11.5-14.5); WHITE BLOOD COUNT 9.7 x10^3/uL (4.0-11.0)
[2018-02-20 12:16] LABS: ALBUMIN 2.8 g/dL (3.4-5.0); ALBUMIN/GLOBULIN RATIO 0.5 (1.0-1.7); CALCIUM 8.8 mg/dL (8.5-10.1); CREATININE 1.2 mg/dL (0.6-1.0); GFR 44.7; MAGNESIUM 1.6 mg/dL (1.8-2.4); POTASSIUM 3.1 mmol/L (3.5-5.1)
[2018-02-20 12:18] LABS: INFLUENZA A PATIENT NEGATIVE (NEGATIVE); INFLUENZA B PATIENT POSITIVE (NEGATIVE)
[2018-02-20] MEDS ORDERED: IV NORMAL SALINE 50ML 50 ML ONE (12:38)
[2018-02-20] MEDS ORDERED: cefTRIAXone SODIUM 1 GM VIAL IV ONE (12:39)
[2018-02-20] MEDS ORDERED: OSELTAMIVIR 75 MG CAPSULE PO ONE (13:00)
[2018-02-20] MEDS ORDERED: MAGNESIUM OXIDE 400 MG TABLET PO ONE (13:00)
[2018-02-20] MEDS ORDERED: POTASSIUM CHLORIDE 20 MEQ TABLET.ER. PO ONE (13:00)
--- NOTE | 2018-02-20 13:25 | PHYS DOC ---
Past History Past Medical History: A-Fib, Diabetes, High Cholesterol, Hypertension, Hypothyroid Past Surgical History: Hysterectomy, Knee Replacement Smoking: Non-smoker Alcohol Use: None Drug Use: None Adult General Chief Complaint Chief Complaint: CHEST PAIN HPI HPI Patient is a 67 year old female who presents with complaining of generalized weakness and chest pain. Patient states she had 1 episodes of vomiting and generalized weakness that started 3 days ago and fever of 101 associated with cough and nasal congestion. Patient complaining of pounding heart racing since yesterday as a constant problem with palpitation like her previous episodes of atrial fibrillation exacerbation with RVR. Patient rated her pain 10 over 10 without focal neuro deficit. Patient had 1 episode of diarrhea this morning and complaining of anorexia. Patient did not have sick contacts at home. Review of Systems Review of Systems Constitutional: Reports fever and generalized weakness Eyes: Denies change in visual acuity, redness, or eye pain [] HENT: Reports nasal congestion Respiratory: Ports cough and shortness of breath Cardiovascular: No additional information not addressed in HPI [] GI: Denies abdominal pain, reports nausea, vomiting, diarrhea [] : Denies dysuria or hematuria [] Musculoskeletal: Denies back pain or joint pain [] Integument: Denies rash or skin lesions [] Neurologic: Denies headache, focal weakness or sensory changes [] Endocrine: Denies polyuria or polydipsia [] All other systems were reviewed and found to be within normal limits, except as documented in this note. Current Medications Current Medications Current Medications Medications (Trade) Dose Ordered Sig/Alejandrina Start Time Stop Time Status Last Admin Dose Admin Aspirin (Children'S Aspirin) 324 mg 1X ONCE 02/20/18 12:00 02/20/18 12:01 DC 02/20/18 11:40 324 MG Ceftriaxone Sodium 1 gm/ Sodium Chloride 50 ml @ 100 mls/hr 1X ONCE 02/20/18 13:00 02/20/18 13:29 02/20/18 12:51 100 MLS/HR Ceftriaxone Sodium (Rocephin) 1 gm STK-MED ONCE 02/20/18 12:39 02/20/18 12:40 DC Dextrose 100 ml @ As Directed STK-MED ONCE 02/20/18 11:41 02/20/18 11:42 DC Diltiazem HCl (Cardizem Iv Push) 20 mg 1X ONCE 02/20/18 12:00 02/20/18 12:01 DC 02/20/18 11:37 20 MG Diltiazem HCl (Cardizem) 125 mg STK-MED ONCE 02/20/18 11:41 02/20/18 11:42 DC Diltiazem HCl 125 mg/Dextrose 125 ml @ 10 mls/hr 1X ONCE 02/20/18 12:00 02/21/18 00:29 02/20/18 11:46 5 MLS/HR Magnesium Oxide (Magnesium Oxide) 400 mg 1X ONCE 02/20/18 13:00 02/20/18 13:01 DC 02/20/18 12:42 400 MG Oseltamivir Phosphate (Tamiflu) 75 mg 1X ONCE 02/20/18 13:00 02/20/18 13:01 DC 02/20/18 12:42 75 MG Potassium Chloride (Klor-Con) 40 meq 1X ONCE 02/20/18 13:00 02/20/18 13:01 DC 02/20/18 12:42 40 MEQ Sodium Chloride 50 ml @ As Directed STK-MED ONCE 02/20/18 12:38 02/20/18 12:40 DC Allergies Allergies Allergies Coded Allergies Type Severity Reaction Last Updated Verified niacin Allergy Unknown 02/20/18 No Physical Exam Physical Exam Constitutional: Well developed, well nourished, moderate distress, non-toxic appearance. [] HENT: Normocephalic, atraumatic, bilateral external ears normal, oropharynx dry , no oral exudates, nose normal. [] Eyes: PERRLA, EOMI, conjunctiva normal, no discharge. [] Neck: Normal range of motion, no tenderness, supple, no stridor. [] Cardiovascular: Tachycardia with regular rhythm, no murmur [] Lungs & Thorax: Bilateral breath sounds clear to auscultation [] Abdomen: Bowel sounds normal, soft, no tenderness, no masses, no pulsatile masses. [] Skin: Warm, dry, no erythema, no rash. [] Back: No tenderness, no CVA tenderness. [] Extremities: Right lower extremity with a large warm area of erythema from ankle to knee with mild tenderness , no cyanosis, no clubbing, ROM intact, no edema. [] Neurologic: Alert and oriented X 3, normal motor function, normal sensory function, no focal deficits noted. [] Psychologic: Affect normal, judgement normal, mood normal. [] Current Patient Data Vital Signs Vital Signs Date Time Temp Pulse Resp B/P (MAP) Pulse Ox O2 Delivery O2 Flow Rate FiO2 02/20/18 13:08 118 19 113/66 (82) 95 Room Air 02/20/18 12:53 98.4 Lab Results Laboratory Tests Test 02/20/18 11:34 02/20/18 11:42 White Blood Count 9.7 x10^3/uL (4.0-11.0) Red Blood Count 4.45 x10^6/uL (3.50-5.40) Hemoglobin 14.7 g/dL (12.0-15.5) Hematocrit 42.9 % (36.0-47.0) Mean Corpuscular Volume 97 fL (79-100) Mean Corpuscular Hemoglobin 33 pg (25-35) Mean Corpuscular Hemoglobin Concent 34 g/dL (31-37) Red Cell Distribution Width 13.4 % (11.5-14.5) Platelet Count 185 x10^3/uL (140-400) Neutrophils (%) (Auto) 62 % (31-73) Lymphocytes (%) (Auto) 22 % (24-48) L Monocytes (%) (Auto) 15 % (0-9) H Eosinophils (%) (Auto) 0 % (0-3) Basophils (%) (Auto) 1 % (0-3) Neutrophils # (Auto) 6.0 x10^3uL (1.8-7.7) Lymphocytes # (Auto) 2.1 x10^3/uL (1.0-4.8) Monocytes # (Auto) 1.4 x10^3/uL (0.0-1.1) H Eosinophils # (Auto) 0.0 x10^3/uL (0.0-0.7) Basophils # (Auto) 0.1 x10^3/uL (0.0-0.2) Prothrombin Time 13.2 SEC (9.4-11.4) H Prothrombin Time INR 1.3 (0.9-1.1) H PTT 40 SEC (23-33) H Sodium Level 134 mmol/L (136-145) L Potassium Level 3.1 mmol/L (3.5-5.1) L Chloride Level 99 mmol/L (98-107) Carbon Dioxide Level 26 mmol/L (21-32) Anion Gap 9 (6-14) Blood Urea Nitrogen 18 mg/dL (7-20) Creatinine 1.2 mg/dL (0.6-1.0) H Estimated GFR (Cockcroft-Gault) 44.7 BUN/Creatinine Ratio 15 (6-20) Glucose Level 89 mg/dL (70-99) Lactic Acid Level 2.2 mmol/L (0.4-2.0) H Calcium Level 8.8 mg/dL (8.5-10.1) Magnesium Level 1.6 mg/dL (1.8-2.4) L Total Bilirubin 2.0 mg/dL (0.2-1.0) H Aspartate Amino Transferase (AST) 40 U/L (15-37) H Alanine Aminotransferase (ALT) 31 U/L (14-59) Alkaline Phosphatase 62 U/L (46-116) Creatine Kinase 87 U/L (26-192) Troponin I Quantitative < 0.017 ng/mL (0-0.055) ND-Qhk-K-Type Natriuretic Peptide 1073 pg/mL (0-124) H Total Protein 8.0 g/dL (6.4-8.2) Albumin 2.8 g/dL (3.4-5.0) L Albumin/Globulin Ratio 0.5 (1.0-1.7) L Lipase 155 U/L (73-393) Influenza Type A (Rapid) Negative (NEGATIVE) Influenza Type B (Rapid) Positive (NEGATIVE) EKG EKG EKG interpreted by me. EKG at 1129 showed atrial fibrillation at rate of 69 with RVR, poor R-wave progress in anteroseptal leads, no acute ST and T-wave abnormalities Radiology/Procedures Radiology/Procedures [address] [address] IMAGING REPORT Signed PATIENT: JOHN GOODSON ACCOUNT: [id number] : 1950 LOCATION: ER AGE: 67 SEX: F EXAM STATUS: PRE ER ORD. PHYSICIAN: DENTON TRIPLETT MD REASON: chest pain PROCEDURE: PORTABLE CHEST 1V Portable chest, 02/20/2018: HISTORY: Chest pain Comparison is made to a study from 01/24/2018. The heart size and pulmonary vascularity are normal. No pulmonary infiltrate is seen. There is no evidence of pleural fluid. IMPRESSION: No acute cardiopulmonary abnormality is detected. Electronically signed by: Manny Suarez MD (02/20/2018 11:47 AM) [facility] DICTATED AND SIGNED BY: MANNY SUAREZ MD DATE: 02/20/18 1144 CC: MARK KNOWLES MD; DENTON TRIPLETT MD ~ Course & Med Decision Making Course & Med Decision Making Pertinent Labs and Imaging studies reviewed. (See chart for details) Evaluation of patient in ER showed 67-year-old female patient with history of atrial fibrillation on Eliquis presented to ER with complaining of chest pain, palpitation, generalized weakness, nausea, diarrhea and vomiting, fever. Patient was afebrile at arrival to ER and had atrial fibrillation with RVR and heart rate of 160s that improved with Cardizem bolus and drip to 120s and 130s with improvement of chest pain. Blood pressure dropped to 80s for a short time after bolus of Cardizem and then returned to above 100. Patient had elevation of lactic acid, low potassium and magnesium, elevation of BNP and creatinine and bilirubin of 2.0 without leukocytosis. Patient treated with IV fluid, Zofran , Tamiflu, Rocephin and felt better. Dr. Knowles informed at 1229 and agreed with admission of patient. Patient informed about test result and plan of care and treatment. Dragon Disclaimer Dragon Disclaimer This electronic medical record was generated, in whole or in part, using a voice recognition dictation system. Departure Departure: Impression: Primary Impression: Atrial fibrillation, transient Additional Impressions: Chest pain Elevated bilirubin Renal insufficiency Congestive heart failure Lower extremity cellulitis Hypokalemia Hypomagnesemia Disposition: 09 ADMITTED INPATIENT (at 1229) Admitting Physician: Mark Knowles (accepted admission at 1229) Condition: GUARDED Referrals: MARK KNOWLES MD (PCP) Critical Care Time Critical care time was 85 minutes exclusive of procedures. Problem Qualifiers DENTON TRIPLETT MD Feb 20, 2018 13:25
[2018-02-20] MEDS ORDERED: LACT1CAP8 PO (14:02)
[2018-02-20] MEDS ORDERED: OMEG-33 PO (14:02)
[2018-02-20] MEDS ORDERED: APIX5TAB5 PO (14:02)
[2018-02-20] MEDS ORDERED: NITR0.4T22 SL (14:02)
[2018-02-20] MEDS ORDERED: CYCL1DRO EACHEYE (14:02)
[2018-02-20] MEDS ORDERED: GABA-585 PO (14:02)
[2018-02-20] MEDS ORDERED: NITROGLYCERIN SUBLINGUAL 0.4 MG BOTTLE OF 25. SL PRN (14:15)
[2018-02-20] MEDS ORDERED: DIGOXIN IV 500 MCG/2 ML AMPUL. IV ONE (14:30)
--- NOTE | 2018-02-20 16:03 | PDOC2 ---
CONSULT Date of Admission DATE: 02/20/18 TIME: 16:00 Reason for Consult: atrial fibrillation with RVR Problem List Problems Medical Problems: (1) Chest pain Status: Acute History of Present Illness Ms Mcclendon is a 67 year old female who presented to the ED with chest pain. She apparently complained of chest discomfort, dyspnea and fast heart rate. She was found to be in atrial fibrillation with RVR. She was admitted, consult called and started on IV cardizem and given digoxin as rate was remaining elevated on max cardizem. She is currently in atrial fibrillation with controlled ventricular response. She appears dyspnic with minimal activity. She now reports that she came to the ED due to significant fatigue, fever and chills and stuffy nose with sneezing. She reports that she did have chest heaviness or tightness when her heart rate was fast but not otherwise. She reports dyspnea since yesterday but denies orthopnea, PND or cough. Past Medical History hypertension, hyperlipidemia, coronary artery disease, prior cath with 65% LAD stenosis, possible history of diabetes mellitus - now off medications, DJD, hypothyroid, TIA, PE, Atrial fibrillation echo 07/2016 The left ventricle is normal size. The left ventricular systolic function is normal and the ejection fraction is within normal range. The Ejection Fraction is 60-65%. There is mild concentric left ventricular hypertrophy. There is no significant aortic valvular stenosis. Doppler and Color Flow revealed trace aortic regurgitation. Doppler and Color Flow revealed trace mitral regurgitation. Doppler and Color Flow revealed mild tricuspid regurgitation. The pulmonary artery systolic pressure is estimated at 28 mmHg. Past Surgical History bilateral knee surgeries, shoulder surgery, cataract surgery, tubal ligation, carpal tunnel Family History hypertension, diabetes mellitus, coronary artery disease Social History non smoker, no significant ETOH, no illicit drugs Current Medications Current Medications Diltiazem HCl (Cardizem Iv Push) 25 mg STK-MED ONCE IVP ; Start 02/20/18 at 11: 32; Stop 02/20/18 at 11:33; Status DC Diltiazem HCl (Cardizem Iv Push) 20 mg 1X ONCE IVP Last administered on at 11:37; Start 02/20/18 at 12:00; Stop 02/20/18 at 12:01; Status DC Aspirin (Children'S Aspirin) 324 mg 1X ONCE PO Last administered on at 11:40; Start 02/20/18 at 12:00; Stop 02/20/18 at 12:01; Status DC Diltiazem HCl 125 mg/Dextrose 125 ml @ 10 mls/hr 1X ONCE IV Last administered on 02/20/18at 11:46; Start 02/20/18 at 12:00; Stop 02/21/18 at 00: 29 Dextrose 100 ml @ As Directed STK-MED ONCE IV ; Start 02/20/18 at 11:41; Stop 02/20/18 at 11:42; Status DC Diltiazem HCl (Cardizem) 125 mg STK-MED ONCE IV ; Start 02/20/18 at 11:41; Stop 02/20/18 at 11:42; Status DC Oseltamivir Phosphate (Tamiflu) 75 mg 1X ONCE PO Last administered on at 12:42; Start 02/20/18 at 13:00; Stop 02/20/18 at 13:01; Status DC Ceftriaxone Sodium 1 gm/ Sodium Chloride 50 ml @ 100 mls/hr 1X ONCE IV Last administered on 02/20/18at 12:51; Start 02/20/18 at 13:00; Stop 02/20/18 at 13 :29; Status DC Magnesium Oxide (Magnesium Oxide) 400 mg 1X ONCE PO Last administered on 02/20at 12:42; Start 02/20/18 at 13:00; Stop 02/20/18 at 13:01; Status DC Potassium Chloride (Klor-Con) 40 meq 1X ONCE PO Last administered on at 12:42; Start 02/20/18 at 13:00; Stop 02/20/18 at 13:01; Status DC Sodium Chloride 1,000 ml @ 125 mls/hr Q8H IV Last administered on 02/20/18at 12:42; Start 02/20/18 at 12:31; Stop 02/21/18 at 12:30 Sodium Chloride 50 ml @ As Directed STK-MED ONCE .ROUTE ; Start 02/20/18 at 12: 38; Stop 02/20/18 at 12:40; Status DC Ceftriaxone Sodium (Rocephin) 1 gm STK-MED ONCE IV ; Start 02/20/18 at 12:39; Stop 02/20/18 at 12:40; Status DC Digoxin (Lanoxin) 500 mcg 1X ONCE IV Last administered on 02/20/18at 15:45; Start 02/20/18 at 14:30; Stop 02/20/18 at 14:31; Status DC Nitroglycerin (Nitrostat) 0.4 mg PRN Q5MIN PRN SL CHEST PAIN; Start 02/20/18 at 14:15 Apixaban (Eliquis) 5 mg BID PO ; Start 02/20/18 at 21:00 Aspirin (Children'S Aspirin) 81 mg DAILYWBKFT PO ; Start 02/21/18 at 08:00 Levothyroxine Sodium (Synthroid) 125 mcg DAILY06 PO ; Start 02/21/18 at 06:00 Losartan Potassium (Cozaar) 100 mg DAILY PO ; Start 02/21/18 at 09:00 Metoprolol Tartrate (Lopressor) 100 mg BID PO ; Start 02/20/18 at 21:00 Fish Oil (Fish Oil) 2,000 mg BID PO ; Start 02/20/18 at 21:00 Hydrochlorothiazide (Hydrodiuril) 25 mg DAILY PO ; Start 02/21/18 at 09:00 Active Scripts Active Losartan-Hctz 100-25 Mg Tab (Losartan/Hydrochlorothiazide) 1 Each Tablet 1 Tab PO DAILY Children's Aspirin (Aspirin) 81 Mg Tab.chew 81 Mg PO DAILYWBKFT Reported Probiotic (Lactobacillus Combo No.11) 1 Each Cap.sprink 1 Each PO DAILY [place] 3 1,000 Mg Softgel ([place]-3 Fatty Acids/Fish Oil) 1 Each Capsule 2 Each PO BID NITROGLYCERIN SubLingual (Nitroglycerin) 0.4 Mg Tab.subl 0.4 Mg SL PRN Q5MIN PRN Gabapentin 100 Mg Capsule 200 Mg PO QHS Restasis (Cyclosporine) 1 Each Droperette 1 Drop EACHEYE BID Eliquis (Apixaban) 5 Mg Tab.ds.pk 5 Mg PO BID Lotemax (Loteprednol Etabonate) 5 Ml Drops.susp 1 Drop LEFTEYE QID Levothyroxine Sodium 125 Mcg Tablet 1 Tab PO DAILY Metoprolol Tartrate 50 Mg Tablet 100 Mg PO BID Allergies: Coded Allergies: niacin (Unverified Allergy, Unknown, 02/20/18) Review of System as per HPI General: YES: Chills, Fatigue, Malaise, Appetite HEENT: YES: Nasal congestion, Sneezing Respiratory: YES: Shortness of breath Cardiovascular: yes: Chest Pain, Palpitations, Edema Neurological: YES: Numbness/Tingling (left hand/fingers) General: Alert, Oriented X3, Cooperative, No acute distress HEENT: Atraumatic, EOMI Lungs: Clear to auscultation, Normal air movement Heart: Other (irregularly irregular, no gallops, clicks or rubs) Abdomen: Normal bowel sounds, Soft Extremities: Other (+ trace to 1+ edema, right>left, erythema noted right lower ext) Neuro: Normal speech, Strength at 5/5 X4 ext Psych/Mental Status: Mental status NL, Mood NL VITALS Vital Signs Date Time Temp Pulse Resp B/P (MAP) Pulse Ox O2 Delivery O2 Flow Rate FiO2 02/20/18 15:45 125 108/76 02/20/18 13:08 19 95 Room Air 02/20/18 12:53 98.4 Labs Laboratory Tests Test 02/20/18 11:34 02/20/18 11:42 02/20/18 14:49 White Blood Count 9.7 x10^3/uL (4.0-11.0) Red Blood Count 4.45 x10^6/uL (3.50-5.40) Hemoglobin 14.7 g/dL (12.0-15.5) Hematocrit 42.9 % (36.0-47.0) Mean Corpuscular Volume 97 fL (79-100) Mean Corpuscular Hemoglobin 33 pg (25-35) Mean Corpuscular Hemoglobin Concent 34 g/dL (31-37) Red Cell Distribution Width 13.4 % (11.5-14.5) Platelet Count 185 x10^3/uL (140-400) Neutrophils (%) (Auto) 62 % (31-73) Lymphocytes (%) (Auto) 22 % (24-48) Monocytes (%) (Auto) 15 % (0-9) Eosinophils (%) (Auto) 0 % (0-3) Basophils (%) (Auto) 1 % (0-3) Neutrophils # (Auto) 6.0 x10^3uL (1.8-7.7) Lymphocytes # (Auto) 2.1 x10^3/uL (1.0-4.8) Monocytes # (Auto) 1.4 x10^3/uL (0.0-1.1) Eosinophils # (Auto) 0.0 x10^3/uL (0.0-0.7) Basophils # (Auto) 0.1 x10^3/uL (0.0-0.2) Prothrombin Time 13.2 SEC (9.4-11.4) Prothromb Time International Ratio 1.3 (0.9-1.1) Activated Partial Thromboplast Time 40 SEC (23-33) Sodium Level 134 mmol/L (136-145) Potassium Level 3.1 mmol/L (3.5-5.1) Chloride Level 99 mmol/L (98-107) Carbon Dioxide Level 26 mmol/L (21-32) Anion Gap 9 (6-14) Blood Urea Nitrogen 18 mg/dL (7-20) Creatinine 1.2 mg/dL (0.6-1.0) Estimated GFR (Cockcroft-Gault) 44.7 BUN/Creatinine Ratio 15 (6-20) Glucose Level 89 mg/dL (70-99) Lactic Acid Level 2.2 mmol/L (0.4-2.0) 1.6 mmol/L (0.4-2.0) Calcium Level 8.8 mg/dL (8.5-10.1) Magnesium Level 1.6 mg/dL (1.8-2.4) Total Bilirubin 2.0 mg/dL (0.2-1.0) Aspartate Amino Transf (AST/SGOT) 40 U/L (15-37) Alanine Aminotransferase (ALT/SGPT) 31 U/L (14-59) Alkaline Phosphatase 62 U/L (46-116) Creatine Kinase 87 U/L (26-192) Troponin I Quantitative < 0.017 ng/mL (0-0.055) JL-Hds-L-Type Natriuretic Peptide 1073 pg/mL (0-124) Total Protein 8.0 g/dL (6.4-8.2) Albumin 2.8 g/dL (3.4-5.0) Albumin/Globulin Ratio 0.5 (1.0-1.7) Lipase 155 U/L (73-393) Influenza Type A (Rapid) Negative (NEGATIVE) Influenza Type B (Rapid) Positive (NEGATIVE) Images CXR - IMPRESSION: No acute cardiopulmonary abnormality is detected. EKG - atrial fibrillation with RVR, nonspecific st/t changes Assessment/Plan 1. atrial fibrillation with RVR - rate now controlled on Cardizem and 1 dose IV dig. Continue home eliquis. Resume metoprolol and titrate off cardizem if possible. Will change metoprolol to every 6 hours until stable. 2. chest pain - likely demand related. currently angina free. Known CAD, will ask for records. Last consult indicates LAD 65%. Initial CE negative. repeat serial, check echo. Continue asa, beta karishma and check lipids. 3. elevated BNP - no overt heart failure, CXR without pulmonary congestion. 4. hypertension - controlled currently. resume home meds as tolerated 5. infulenza b - per PCP 6. cellulitis left lower extremity - per PCP 7. diabetes - per PCP 8. electrolyte imbalance - K+and Mg+ replaced. recheck in am. ROSALIND LAZCAON APRN Feb 20, 2018 16:03
[2018-02-20] MEDS: METOPROLOL TART IMMED RELEASE 50 MG TABLET PO SCH (18:44)
[2018-02-20] MEDS: OMEGA-3 FATTY ACIDS/FISH OIL 1,000 MG CAPSULE. PO SCH (20:17)
[2018-02-20] MEDS: APIXABAN 5 MG TABLET. PO SCH (20:17)
[2018-02-20] MEDS ORDERED: METOPROLOL TART IMMED RELEASE 50 MG TABLET PO SCH (21:00)
[2018-02-21] VITALS (15 sets, daily range): BP systolic 134–173; BP diastolic 62–85
[2018-02-21] MEDS: IV NORMAL SALINE 1,000ML 1,000 ML IV SCH (04:31)
[2018-02-21 05:54] LABS: CALCIUM 7.7 mg/dL (8.5-10.1); CREATININE 0.9 mg/dL (0.6-1.0); GFR 62.3; MAGNESIUM 1.7 mg/dL (1.8-2.4); POTASSIUM 3.3 mmol/L (3.5-5.1)
[2018-02-21] MEDS: LEVOTHYROXINE 125 MCG TABLET PO SCH (06:27)
[2018-02-21] MEDS: METOPROLOL TART IMMED RELEASE 50 MG TABLET PO SCH ×4 (06:27→17:17)
[2018-02-21] MEDS: LOSARTAN 50 MG TABLET. PO SCH (08:44)
[2018-02-21] MEDS: hydroCHLOROthiazide 25 MG TABLET PO SCH (08:44)
[2018-02-21] MEDS: ASPIRIN 81 MG TAB.CHEW PO SCH (08:45)
[2018-02-21] MEDS: APIXABAN 5 MG TABLET. PO SCH ×2 (08:45→20:08)
[2018-02-21] MEDS: OMEGA-3 FATTY ACIDS/FISH OIL 1,000 MG CAPSULE. PO SCH ×2 (08:46→20:08)
[2018-02-21] MEDS ORDERED: IOHEXOL 300 MG/ML 75 ML VIAL. IV ONE (11:15)
[2018-02-21] MEDS ORDERED: IOHEXOL 350 MG/ML 50 ML VIAL. IV ONE (11:15)
[2018-02-21] MEDS: MAGNESIUM CHLORIDE ER 64 MG TABLET.ER PO SCH (11:26)
[2018-02-21] MEDS: OSELTAMIVIR 75 MG CAPSULE PO SCH ×2 (11:27→20:09)
--- NOTE | 2018-02-21 11:49 | RAD ---
Examination: CT angiography chest HISTORY: History of shortness of breath COMPARISON: 07/23/2016 TECHNIQUE: Axial CT and radiographic images of chest were performed with IV contrast. Coronal and sagittal 3-D MIP reformats are performed Exposure: One or more of the following individualized dose reduction techniques were utilized for this examination: 1. Automated exposure control 2. Adjustment of the mA and/or kV according to patient size 3. Use of iterative reconstruction technique FINDINGS: The central airways are patent. Mild cardiomegaly. Diffuse coronary artery calcifications identified. Evaluation is limited as there is only minimal amount of contrast within the pulmonary artery and its branches. There is no obvious filling defect identified in the main pulmonary arterial trunk and right and left main pulmonary arteries. The evaluation the distal lobar, segmental branches of the pulmonary arteries is limited due to lack of significant contrast within these branches. There is a 5 mm nodule identified in the right upper lobe of the lung, left upper lobe of the lung and few nodules identified in the right lower lobe of the lung with the largest measuring 5 mm. These are similar to prior exam. Minimal atelectasis identified in the left lingula and left lower lobe of the lung. There is mild diffuse decreased attenuation noted in the liver. Moderate degenerative changes thoracic spine. IMPRESSION: 1. No evidence of central pulmonary embolism. Evaluation of the pulmonary arteries is limited due to lack of significant contrast within the pulmonary artery and its branches particularly in the distal lobar and segmental branches. 2. Coronary artery calcifications. 3. Bilateral lung nodules with the largest measuring 5 mm in the right upper lobe, left upper lobe and right lower lobe of the lungs similar to prior exam. Electronically signed by: Marcus Andrew MD (02/21/2018 11:45 AM) [facility]
[2018-02-21 12:01] LABS: THYROID STIM HORMONE (TSH) 0.744 uIU/mL (0.358-3.740)
[2018-02-21] MEDS ORDERED: OSELTAMIVIR 75 MG CAPSULE PO SCH (21:00)
[2018-02-22 00:23] VITALS: BP 126/73
[2018-02-22] MEDS: LEVOTHYROXINE 125 MCG TABLET PO SCH (05:25)
[2018-02-22 05:59] VITALS: BP 145/80
[2018-02-22] MEDS: METOPROLOL TART IMMED RELEASE 50 MG TABLET PO SCH ×4 (06:18→17:28)
[2018-02-22] MEDS: MAGNESIUM CHLORIDE ER 64 MG TABLET.ER PO SCH (08:04)
[2018-02-22] MEDS: LOSARTAN 50 MG TABLET. PO SCH (08:04)
[2018-02-22] MEDS: ASPIRIN 81 MG TAB.CHEW PO SCH (08:04)
[2018-02-22] MEDS: APIXABAN 5 MG TABLET. PO SCH ×2 (08:05→20:07)
[2018-02-22] MEDS: OMEGA-3 FATTY ACIDS/FISH OIL 1,000 MG CAPSULE. PO SCH ×2 (08:05→20:06)
[2018-02-22] MEDS: hydroCHLOROthiazide 25 MG TABLET PO SCH (08:05)
[2018-02-22] MEDS: OSELTAMIVIR 75 MG CAPSULE PO SCH ×2 (08:05→20:06)
--- NOTE | 2018-02-22 08:39 | CARD ---
MR#: [id number] Date of Study: 02/20/2018 Ordering Physician: ROSALIND LAZCANO, Referring Physician: MARK KNOWLES, Tech: Alka Proctor APPROVED REPORT EXAM: Two-dimensional and M-mode echocardiogram with Doppler and color Doppler. INDICATION Atrial Fibrillation 2D DIMENSIONS RVDd1.5 (2.9-3.5cm)Left Atrium(2D)3.2 (1.6-4.0cm) IVSd1.1 (0.7-1.1cm)Aortic Root(2D)2.6 (2.0-3.7cm) LVDd4.6 (3.9-5.9cm)LVOT Diameter2.1 (1.8-2.4cm) PWd1.3 (0.7-1.1cm)LVDs2.9 (2.5-4.0cm) FS (%) 37.8 %SV66.3 ml LVEF(%)68.0 (>50%) Aortic Valve AoV Peak Az.175.3cm/sAoV VTI33.0cm AO Peak GR.12.3mmHgLVOT Peak Az.155.7cm/s LVOT VTI 28.10cmAO Mean GR.8mmHg ALTAGRACIA (VMAX)3.98xz7JUO (VTI)2.92cm2 Mitral Valve MV E Uytxnvxl307.4cm/sMV DECEL YMWO452tz MV A Ambzsyse63.8cm/sE/A Ratio2.4 Pulmonary Valve PV Peak Uqlkgfbk979.6cm/sPV Peak Grad.5mmHg Tricuspid Valve TR P. Zauahaso848kd/sRAP IYJPECBM2mjPe TR Peak Gr.49vvInLFDP74rgJw Pulmonary Vein S1 Itdtcfxb38.2cm/sD2 Torjaquv28.1cm/s LEFT VENTRICLE The left ventricle is normal size. There is borderline to mild concentric left ventricular hypertroph y. The left ventricular systolic function is normal and the ejection fraction is within normal range. The Ejection Fraction is 50-55%. There is normal LV segmental wall motion. Tissue Doppler imaging re veals moderate left ventricular diastolic dysfunction. RIGHT VENTRICLE The right ventricle is normal size. There is normal right ventricular wall thickness. The right ventr icular systolic function is normal. ATRIA The left atrium is mildly dilated. The right atrium size is normal. The interatrial septum is intact with no evidence for an atrial septal defect or patent foramen ovale as noted on 2-D or Doppler imagi ng. AORTIC VALVE The aortic valve is normal in structure and function. Doppler and Color Flow revealed trace aortic re gurgitation. Calculated aortic valve area is 3 cm2 with maximum pressure gradient of 13 mmHg and mean pressure gradient of 9 mmHg. MITRAL VALVE The mitral valve is normal in structure and function. There is no mitral valve stenosis. Doppler and Color-flow revealed trace mitral regurgitation. TRICUSPID VALVE The tricuspid valve is normal in structure and function. Doppler and Color Flow revealed trace tricus pid regurgitation with an estimated PAP of 28 mmHg. PULMONIC VALVE The pulmonic valve is not well visualized. Doppler and Color Flow revealed trace pulmonic valvular re gurgitation. GREAT VESSELS The aortic root is normal in size. The IVC is normal in size and collapses >50% with inspiration. PERICARDIAL EFFUSION There is a trace pericardial effusion. Critical Notification Critical Value: No <Conclusion> The left ventricular systolic function is normal and the ejection fraction is within normal range. Th e Ejection Fraction is 50-55%. Signed by : Home Robledo, Electronically Approved : 02/22/2018 08:38:07
[2018-02-22] MEDS: LACTOBACILLUS RHAMNOSUS GG 1 CAPSULE. PO SCH ×2 (09:00→20:07)
[2018-02-22 11:16] VITALS: BP 117/71
[2018-02-22 15:41] VITALS: BP 145/78
[2018-02-22] MEDS: ACETAMINOPHEN 500 MG TABLET PO PRN (17:31)
[2018-02-22 18:32] VITALS: BP 149/77
[2018-02-23] MEDS: METOPROLOL TART IMMED RELEASE 50 MG TABLET PO SCH ×2 (00:41→06:26)
[2018-02-23 00:49] VITALS: BP 165/76
[2018-02-23 06:17] LABS: CALCIUM 8.8 mg/dL (8.5-10.1); CREATININE 0.9 mg/dL (0.6-1.0); GFR 62.3; POTASSIUM 3.3 mmol/L (3.5-5.1)
[2018-02-23] MEDS: LEVOTHYROXINE 125 MCG TABLET PO SCH (06:26)
[2018-02-23 06:34] VITALS: BP 152/76
[2018-02-23] MEDS ORDERED: POTASSIUM CHLORIDE 20 MEQ TABLET.ER. PO ONE (08:00)
[2018-02-23 08:46] VITALS: BP 152/76
[2018-02-23] MEDS: LOSARTAN 50 MG TABLET. PO SCH (08:46)
[2018-02-23] MEDS: LACTOBACILLUS RHAMNOSUS GG 1 CAPSULE. PO SCH (08:46)
[2018-02-23] MEDS: OMEGA-3 FATTY ACIDS/FISH OIL 1,000 MG CAPSULE. PO SCH (08:46)
[2018-02-23] MEDS: hydroCHLOROthiazide 25 MG TABLET PO SCH (08:46)
[2018-02-23] MEDS: MAGNESIUM CHLORIDE ER 64 MG TABLET.ER PO SCH (08:46)
[2018-02-23] MEDS: APIXABAN 5 MG TABLET. PO SCH (08:47)
[2018-02-23] MEDS: ACETAMINOPHEN 500 MG TABLET PO PRN (08:47)
[2018-02-23] MEDS: ASPIRIN 81 MG TAB.CHEW PO SCH (08:47)
[2018-02-23] MEDS: OSELTAMIVIR 75 MG CAPSULE PO SCH (08:47)
--- NOTE | 2018-02-23 09:14 | PDOC ---
PROGRESS NOTES Diagnosis Problem Problems Medical Problems: (1) Chest pain Status: Acute Assessment Problems Medical Problems: (1) Chest pain Status: Acute 1. atrial fibrillation with RVR - Converted to SR. Continue Eliquis and metoprolol. . 2. chest pain - likely demand related. remains angina free. Known CAD. Gonzalo negative, echo with normal LVEF and wall motion. Continue medical mgmt, outpatient follow up. 3. elevated BNP - no overt heart failure, CXR without pulmonary congestion. 4. hypertension - moderately elevated. add hydralazine. Outpatient BP check and follow up in 2-4 weeks. 5. infulenza b - per PCP 6. cellulitis left lower extremity - improved, mgmt per PCP 7. diabetes - per PCP 8. electrolyte imbalance - K low, replacement and OP follow up per PCP Subjective "feeling much better", "ready to go home", denies chest pain, dyspnea, palpitations, lightheadedness. Objective tele - sinus rhythm Vital Signs Date Time Temp Pulse Resp B/P (MAP) Pulse Ox O2 Delivery O2 Flow Rate FiO2 02/23/18 08:46 69 152/76 02/23/18 06:34 98.2 18 97 Room Air Intake and Output 02/23/18 07:00 Intake Total 300 ml Output Total 1300 ml Balance -1000 ml Intake Oral 300 ml Output Urine Total 1300 ml # Voids 3 Abdomen: Normal bowel sounds, Soft, No tenderness Heart: Regular rate, Normal S1, Normal S2, Other (no gallops, clicks or rubs) Extremities: No cyanosis, Normal pulses, Other (trace to 1+ edema, erythema resolved) General: Alert, Oriented X3, Cooperative HEENT: Atraumatic, EOMI, Mucous membr. moist/pink Lungs: Clear to auscultation, Normal air movement Neuro: Normal speech, Strength at 5/5 X4 ext Psych/Mental Status: Mental status NL, Mood NL Review of Relevant I have reviewed the following items severo (where applicable) has been applied. Labs Laboratory Tests Test 02/21/18 10:24 02/21/18 12:04 02/23/18 05:43 D-Dimer (Marii) 0.46 mg/L (0.00-0.50) Glucose (Fingerstick) 150 mg/dL (70-99) Sodium Level 138 mmol/L (136-145) Potassium Level 3.3 mmol/L (3.5-5.1) Chloride Level 101 mmol/L (98-107) Carbon Dioxide Level 29 mmol/L (21-32) Anion Gap 8 (6-14) Blood Urea Nitrogen 16 mg/dL (7-20) Creatinine 0.9 mg/dL (0.6-1.0) Estimated GFR (Cockcroft-Gault) 62.3 Glucose Level 77 mg/dL (70-99) Calcium Level 8.8 mg/dL (8.5-10.1) Microbiology 02/20/18 Blood Culture - Preliminary, Resulted NO GROWTH AFTER 2 DAYS... Medications Current Medications Diltiazem HCl (Cardizem Iv Push) 25 mg STK-MED ONCE IVP ; Start 02/20/18 at 11: 32; Stop 02/20/18 at 11:33; Status DC Diltiazem HCl (Cardizem Iv Push) 20 mg 1X ONCE IVP Last administered on at 11:37; Start 02/20/18 at 12:00; Stop 02/20/18 at 12:01; Status DC Aspirin (Children'S Aspirin) 324 mg 1X ONCE PO Last administered on at 11:40; Start 02/20/18 at 12:00; Stop 02/20/18 at 12:01; Status DC Diltiazem HCl 125 mg/Dextrose 125 ml @ 10 mls/hr 1X ONCE IV Last administered on 02/20/18at 11:46; Start 02/20/18 at 12:00; Stop 02/21/18 at 00: 29; Status DC Dextrose 100 ml @ As Directed STK-MED ONCE IV ; Start 02/20/18 at 11:41; Stop 02/20/18 at 11:42; Status DC Diltiazem HCl (Cardizem) 125 mg STK-MED ONCE IV ; Start 02/20/18 at 11:41; Stop 02/20/18 at 11:42; Status DC Oseltamivir Phosphate (Tamiflu) 75 mg 1X ONCE PO Last administered on at 12:42; Start 02/20/18 at 13:00; Stop 02/20/18 at 13:01; Status DC Ceftriaxone Sodium 1 gm/ Sodium Chloride 50 ml @ 100 mls/hr 1X ONCE IV Last administered on 02/20/18at 12:51; Start 02/20/18 at 13:00; Stop 02/20/18 at 13 :29; Status DC Magnesium Oxide (Magnesium Oxide) 400 mg 1X ONCE PO Last administered on 02/20at 12:42; Start 02/20/18 at 13:00; Stop 02/20/18 at 13:01; Status DC Potassium Chloride (Klor-Con) 40 meq 1X ONCE PO Last administered on at 12:42; Start 02/20/18 at 13:00; Stop 02/20/18 at 13:01; Status DC Sodium Chloride 1,000 ml @ 125 mls/hr Q8H IV Last administered on 02/21/18at 04 :31; Start 02/20/18 at 12:31; Stop 02/21/18 at 12:30; Status DC Sodium Chloride 50 ml @ As Directed STK-MED ONCE .ROUTE ; Start 02/20/18 at 12: 38; Stop 02/20/18 at 12:40; Status DC Ceftriaxone Sodium (Rocephin) 1 gm STK-MED ONCE IV ; Start 02/20/18 at 12:39; Stop 02/20/18 at 12:40; Status DC Digoxin (Lanoxin) 500 mcg 1X ONCE IV Last administered on 02/20/18at 15:45; Start 02/20/18 at 14:30; Stop 02/20/18 at 14:31; Status DC Nitroglycerin (Nitrostat) 0.4 mg PRN Q5MIN PRN SL CHEST PAIN; Start 02/20/18 at 14:15 Apixaban (Eliquis) 5 mg BID PO Last administered on 02/23/18at 08:47; Start at 21:00 Aspirin (Children'S Aspirin) 81 mg DAILYWBKFT PO Last administered on at 08:47; Start 02/21/18 at 08:00 Levothyroxine Sodium (Synthroid) 125 mcg DAILY06 PO Last administered on at 06:26; Start 02/21/18 at 06:00 Losartan Potassium (Cozaar) 100 mg DAILY PO Last administered on 02/23/18at 08: 46; Start 02/21/18 at 09:00 Metoprolol Tartrate (Lopressor) 100 mg BID PO ; Start 02/20/18 at 21:00; Stop 02/20/18 at 21:00; Status DC Fish Oil (Fish Oil) 2,000 mg BID PO Last administered on 02/23/18at 08:46; Start 02/20/18 at 21:00 Hydrochlorothiazide (Hydrodiuril) 25 mg DAILY PO Last administered on at 08:46; Start 02/21/18 at 09:00 Metoprolol Tartrate (Lopressor) 50 mg Q6HRS PO Last administered on 02/23/18at 06:26; Start 02/20/18 at 18:00; Stop 02/23/18 at 13:00 Oseltamivir Phosphate (Tamiflu) 75 mg BID PO ; Start 02/21/18 at 21:00; Stop at 21:00; Status DC Ceftriaxone Sodium 1 gm/ Sodium Chloride 50 ml @ 100 mls/hr Q24H IV Last administered on 02/22/18at 12:35; Start 02/21/18 at 13:00 Magnesium Chloride (Mag Delay) 64 mg DAILY PO Last administered on 02/23/18at 08 :46; Start 02/21/18 at 11:00 Oseltamivir Phosphate (Tamiflu) 75 mg BID PO Last administered on 02/23/18 08: 47; Start 02/21/18 at 11:00; Stop 02/26/18 at 10:59 Iohexol (Omnipaque 350 Mg/ml) 75 ml 1X ONCE IV ; Start 02/21/18 at 11:15; Stop 02/21/18 at 11:19; Status DC Iohexol (Omnipaque 300 Mg/ml) 75 ml 1X ONCE IV ; Start 02/21/18 at 11:15; Stop 02/21/18 at 11:19; Status DC Lactobacillus Rhamnosus (Culturelle) 1 cap BID PO Last administered on at 08:46; Start 02/22/18 at 09:00 Acetaminophen (Tylenol) 500 mg PRN Q6HRS PRN PO PAIN / TEMP Last administered on 02/23/18at 08:47; Start 02/22/18 at 15:45 Potassium Chloride (Klor-Con) 40 meq 1X ONCE PO Last administered on at 08:47; Start 02/23/18 at 08:00; Stop 02/23/18 at 08:01; Status DC Metoprolol Tartrate (Lopressor) 100 mg BID PO ; Start 02/23/18 at 21:00; Status UNV Active Scripts Active Losartan-Hctz 100-25 Mg Tab (Losartan/Hydrochlorothiazide) 1 Each Tablet 1 Tab PO DAILY Children's Aspirin (Aspirin) 81 Mg Tab.chew 81 Mg PO DAILYWBKFT Reported Probiotic (Lactobacillus Combo No.11) 1 Each Cap.sprink 1 Each PO DAILY [place] 3 1,000 Mg Softgel ([place]-3 Fatty Acids/Fish Oil) 1 Each Capsule 2 Each PO BID NITROGLYCERIN SubLingual (Nitroglycerin) 0.4 Mg Tab.subl 0.4 Mg SL PRN Q5MIN PRN Gabapentin 100 Mg Capsule 200 Mg PO QHS Restasis (Cyclosporine) 1 Each Droperette 1 Drop EACHEYE BID Eliquis (Apixaban) 5 Mg Tab.ds.pk 5 Mg PO BID Lotemax (Loteprednol Etabonate) 5 Ml Drops.susp 1 Drop LEFTEYE QID Levothyroxine Sodium 125 Mcg Tablet 1 Tab PO DAILY Metoprolol Tartrate 50 Mg Tablet 100 Mg PO BID Vitals/I & O Vital Sign - Last 24 Hours 02/22/18 02/22/18 02/22/18 02/22/18 11:16 11:41 15:41 17:28 Temp 98.4 100.0 Pulse 68 68 66 66 B/P (MAP) 117/71 (86) 117/71 145/78 (100) 145/78 Pulse Ox 94 96 O2 Delivery Room Air Room Air 02/22/18 02/22/18 02/23/18 02/23/18 18:32 20:29 00:41 00:49 Temp 99.6 97.6 Pulse 67 67 65 Resp 16 B/P (MAP) 149/77 (101) 149/77 165/76 (105) Pulse Ox 94 O2 Delivery Room Air Room Air 02/23/18 02/23/18 02/23/18 06:26 06:34 08:46 Temp 98.2 Pulse 65 69 69 Resp 18 B/P (MAP) 165/76 152/76 (101) 152/76 Pulse Ox 97 O2 Delivery Room Air Intake and Output 12/2/18 12/2/18 12/3/18 15:00 23:00 07:00 Intake Total 300 ml Output Total 1300 ml Balance -1000 ml ROSALIND LAZCANO APRN Feb 23, 2018 09:14
[2018-02-23] MEDS ORDERED: HYDR-2868 PO (09:29)
[2018-02-23] MEDS ORDERED: OSEL75CA PO (09:29)
--- NOTE | 2018-02-23 20:50 | DS ---
DATE OF DISCHARGE: 02/23/2018 HOSPITAL COURSE: This 67-year-old female came in initially with atrial fibrillation with a rapid ventricular response. She also had some chest pain. The patient also came in with congestive heart failure and she had influenza B. The patient made good progress on a combination of medications. Cardiology was consulted. Her heart rate came down in the normal range. She had a CTA, which was unremarkable except for showing diffuse coronary artery calcifications, and some bilateral lung nodules. The patient made excellent progress during the rest of her hospitalization and she was cleared by Cardiology. IMPRESSION: Atrial fibrillation, rapid ventricular response, systemic inflammatory response syndrome, influenza B, morbid obesity, hypokalemia, hnws-ta-njozanar protein malnutrition. PLAN: As above. She will be discharged home on a heart-healthy diet, decreased activity, and followup accordingly as an outpatient in the next 7-10 days or sooner as needed. A mask was given to her, so she could wear those at home and not spread the influenza bug to other people. MARK KNOWLES MD DR: OANH/arnulfo JOB#: [id number] / [id number]
[2018-02-23] MEDS ORDERED: hydrALAZINE 25 MG TABLET PO SCH (21:00)
[2018-02-23] MEDS ORDERED: METOPROLOL TART IMMED RELEASE 50 MG TABLET PO SCH (21:00)
== END 2018-02-23 10:15 | disposition home or self-care (01) | DRG 308 ==
LOC: ER 11:22 → ICU 12:30 → 1 SOUTH 02-21 15:41
PROVIDERS: ADMIT Family Medicine; ATTEND Family Medicine
DX: I48.91 Unspecified atrial fibrillation (principal); N17.0 Acute kidney failure with tubular necrosis; E44.0 Moderate protein-calorie malnutrition; L03.116 Cellulitis of left lower limb; R17 Unspecified jaundice; R65.10 Systemic inflammatory response syndrome (SIRS) of non-infectious origin without acute organ dysfunction; Z68.43 Body mass index [BMI] 50.0-59.9, adult; E03.9 Hypothyroidism, unspecified; E11.9 Type 2 diabetes mellitus without complications; E66.01 Morbid (severe) obesity due to excess calories; E78.00 Pure hypercholesterolemia, unspecified; E78.5 Hyperlipidemia, unspecified; E83.42 Hypomagnesemia; E87.6 Hypokalemia; I11.0 Hypertensive heart disease with heart failure; I25.10 Atherosclerotic heart disease of native coronary artery without angina pectoris; I50.9 Heart failure, unspecified; J10.1 Influenza due to other identified influenza virus with other respiratory manifestations; N28.9 Disorder of kidney and ureter, unspecified; Z96.659 Presence of unspecified artificial knee joint; M19.90 Unspecified osteoarthritis, unspecified site; Z79.01 Long term (current) use of anticoagulants; Z82.49 Family history of ischemic heart disease and other diseases of the circulatory system; Z83.3 Family history of diabetes mellitus; Z90.710 Acquired absence of both cervix and uterus; Z88.8 Allergy status to other drugs, medicaments and biological substances; Z79.899 Other long term (current) drug therapy; Z86.73 Personal history of transient ischemic attack (TIA), and cerebral infarction without residual deficits; Z86.711 Personal history of pulmonary embolism; Z98.49 Cataract extraction status, unspecified eye; Z98.51 Tubal ligation status; Z79.84 Long term (current) use of oral hypoglycemic drugs
CPT/HCPCS: 36415; 71045; 71275; 80048; 80053; 80061; 82550; 82947; 83605; 83690; 83735; 83880; 84443; 84484; 85025; 85379; 85610; 85730; 87040; 87186; 87205; 87641; 87804; 93005; 93306; 96365; 96366; 96372; 96376; 99292; J0696; J1160; J3490; 99291-25; J7030

== ENCOUNTER → 2018-06-13 | Outpatient (CLI) | payer OTHER ==
[~2018-06-13] MED LIST changes: +APIX5TAB5 PO; +GABA-585 PO; +HYDR-2868 PO; +LACT1CAP8 PO; +NITR0.4T22 SL; +OMEG-33 PO; +OSEL75CA PO
[2018-06-13 10:55] LABS: BASO % 1 % (0-3); EOS # 0.3 x10^3/uL (0.0-0.7); EOS % 7 % (0-3); HEMATOCRIT 38.9 % (36.0-47.0); HEMOGLOBIN 13.4 g/dL (12.0-15.5); LYMPH # 1.2 x10^3/uL (1.0-4.8); LYMPH % 33 % (24-48); MEAN CORPUSCULAR HEMOGLOBIN 34 pg (25-35); MEAN CORPUSCULAR HGB CONC 35 g/dL (31-37); MEAN CORPUSCULAR VOLUME 97 fL (79-100); MONO # 0.4 x10^3/uL (0.0-1.1); MONO % 12 % (0-9); NEUT # 1.7 x10^3uL (1.8-7.7); NEUT % 47 % (31-73); PLATELET COUNT 200 x10^3/uL (140-400); RED CELL DISTRIBUTION WIDTH 13.4 % (11.5-14.5); WHITE BLOOD COUNT 3.6 x10^3/uL (4.0-11.0)
[2018-06-13 11:23] LABS: CALCIUM 9.2 mg/dL (8.5-10.1); CREATININE 1.1 mg/dL (0.6-1.0); GFR 49.4; PHOSPHORUS 3.3 mg/dL (2.6-4.7); POTASSIUM 3.6 mmol/L (3.5-5.1)
[2018-06-14 10:06] LABS: CREATININE PTH 1.02 mg/dL (0.57-1.00); PTH INTACT 30 pg/mL (15-65)
== END | disposition home or self-care (01) ==
LOC: LAB 10:07
PROVIDERS: ATTEND Family Medicine
DX: I12.9 Hypertensive chronic kidney disease with stage 1 through stage 4 chronic kidney disease, or unspecified chronic kidney disease (principal); E11.22 Type 2 diabetes mellitus with diabetic chronic kidney disease; N18.3 Chronic kidney disease, stage 3 (moderate); I48.2 Chronic atrial fibrillation; E11.65 Type 2 diabetes mellitus with hyperglycemia; B37.2 Candidiasis of skin and nail; R60.1 Generalized edema
CPT/HCPCS: 36415; 80069; 83880; 83970; 85025

== ENCOUNTER → 2018-06-18 | Outpatient (CLI) | payer OTHER ==
--- NOTE | 2018-06-18 11:03 | RAD ---
EXAM: Abdomen sonogram. HISTORY: Renal insufficiency. Pain. TECHNIQUE: Sonographic imaging of the abdomen was performed. COMPARISON: 08/09/2016. FINDINGS: The liver is enlarged. No focal hepatic lesion is seen. The gallbladder is surgically absent. The common bile duct is mildly dilated for patient age, measuring 7.4 mm. The kidneys are normal in size. No solid or cystic renal lesion is seen. The pancreas is unremarkable. The spleen is enlarged, measuring 14.0 cm. The aorta is normal in caliber. The inferior vena cava is patent. The bladder is nondistended, limiting evaluation. IMPRESSION: 1. Mild common bile duct dilatation. This may be due to reservoir effect status post cholecystectomy. 2. Hepatosplenomegaly. 3. Sonographically unremarkable kidneys. Electronically signed by: Martine Martinez MD (06/18/2018 11:00 AM) [id number]
== END | disposition home or self-care (01) ==
LOC: US 09:15
PROVIDERS: ATTEND Nurse Practitioner Family
DX: I12.9 Hypertensive chronic kidney disease with stage 1 through stage 4 chronic kidney disease, or unspecified chronic kidney disease (principal); E11.22 Type 2 diabetes mellitus with diabetic chronic kidney disease; N18.3 Chronic kidney disease, stage 3 (moderate); R16.2 Hepatomegaly with splenomegaly, not elsewhere classified; Z79.4 Long term (current) use of insulin
CPT/HCPCS: 76700

== ENCOUNTER → 2018-07-01 | Outpatient (CLI) | payer OTHER ==
[2018-07-01 18:06] LABS: THYROPEROXIDASE ANTIBODY 32 IU/mL (0-34)
[2018-07-03 13:09] LABS: MITOCHONDRIAL ABDY <20.0 Units (0.0-20.0); SMOOTH MUSCLE AB 19 Units (0-19)
[2018-07-04 21:10] LABS: ANA INTERP Negative (.)
== END | disposition home or self-care (01) ==
LOC: LAB 08:30
PROVIDERS: ATTEND Internal Medicine Gastroenterology
DX: R16.0 Hepatomegaly, not elsewhere classified (principal)
CPT/HCPCS: 36415; 82728; 83520; 83540; 83550; 86038; 86255; 86376; 86706; 86803; 87340; 83516

== ENCOUNTER → 2018-07-01 | Outpatient (CLI) | payer OTHER ==
[~2018-07-01] MED LIST changes: +IOHEXOL 300 MG/ML 75 ML VIAL. IV ONE
--- NOTE | 2018-07-01 09:35 | RAD ---
PQRS Compliance Statement: One or more of the following individualized dose reduction techniques were utilized for this examination: 1. Automated exposure control 2. Adjustment of the mA and/or kV according to patient size 3. Use of iterative reconstruction technique CT abdomen/pelvis with contrast 07/01/2018 8:41 AM INDICATION: Enlarged spleen COMPARISON: Ultrasound abdomen June 18, 2018, CT abdomen/pelvis August 09, 2016. TECHNIQUE: Multiple axial CT images of the abdomen and pelvis were obtained after the intravenous administration of 60 mL Omnipaque 300. Coronal and sagittal reformats are provided. FINDINGS: There is a 3 mm solid noncalcified pulmonary nodule at the right lung base (series 2, image 18) there is a 3 mm calcified granuloma in the right middle lobe. Heart size is within normal limits with coronary artery vascular calcifications. There is mild nodular contour of the hepatic parenchyma as may be seen with cirrhosis. No suspicious hepatic lesion is identified. Portal venous system appears patent. Gallbladder surgically absent. No intrahepatic or extrahepatic biliary ductal dilatation is identified. Spleen is borderline in size measuring 12.2 cm in oblique craniocaudal dimension. Calcifications within the spleen likely represent sequela prior granulomatous exposure. Adrenal glands are normal in appearance. No peripancreatic inflammatory changes are identified. No suspicious pancreatic mass. No dilatation of the main pancreatic duct. The abdominal aorta is normal in course and caliber. There are no pathologically enlarged lymph nodes in the abdomen and pelvis. There is no abdominal free fluid. There is no free intraperitoneal air. Mild calcified atheromatous plaque is identified involving the abdominal aorta. There is a retroaortic left renal vein. The kidneys enhance symmetrically. There is no suspicious renal mass. There is no hydronephrosis. There are no suspected calculi within the kidneys, ureters or urinary bladder. There is mild colonic diverticulosis. The appendix is not definitively visualized. No pericecal inflammatory changes are identified. No evidence for bowel obstruction or inflammation. Urinary bladder is within normal limits given degree of distention. No suspicious pelvic masses are identified. There is a small umbilical hernia containing fat. There is grade 1 anterolisthesis of L5 on S1 with bilateral L5 pars defects. Findings result in severe bilateral neuroforaminal stenosis at L5-S1. IMPRESSION: 1. Nodular contour of the hepatic parenchyma may be seen with cirrhosis. No suspicious hepatic lesions are identified. 2. Spleen is normal in size measuring 12.2 cm in oblique craniocaudal dimension. 3. 3 mm solid noncalcified pulmonary nodule is identified at the right lung base. Stable from CT abdomen/pelvis August 09, 2016 4. Chronic L5 pars defects with grade 1 anterolisthesis of L5 on S1 and bilateral severe L5-S1 osseous neuroforaminal stenosis. Electronically signed by: Charlene Nash MD (07/01/2018 9:32 AM) [id number]
== END | disposition home or self-care (01) ==
LOC: CT 08:27
PROVIDERS: ATTEND Family Medicine
DX: K57.30 Diverticulosis of large intestine without perforation or abscess without bleeding (principal); R91.1 Solitary pulmonary nodule; J84.10 Pulmonary fibrosis, unspecified; I25.10 Atherosclerotic heart disease of native coronary artery without angina pectoris; M43.17 Spondylolisthesis, lumbosacral region; M48.07 Spinal stenosis, lumbosacral region
CPT/HCPCS: 74177; Q9967

== ENCOUNTER → 2019-03-11 | Outpatient (CLI) | payer MEDICAID ==
[~2019-03-11] MED LIST changes: +DICL50TA4 PO; -IOHEXOL 300 MG/ML 75 ML VIAL. IV ONE; +SIMV40TA18 PO; -SIMV40TA3 PO
--- NOTE | 2019-03-15 13:23 | RAD ---
MR#: [id number] Date of Study: 03/11/2019 Ordering Physician: DILIP ROBLEDO, Referring Physician: Lionel LOPES: Abbie Linares RDMS RVT APPROVED REPORT Patient Location: OUT-PATIENT Laterality:Bilateral Indications Retinal Hemorrhage Risk Factors Grayscale images of the bilateral common carotid, external and internal carotid vessels reveals moder ate plaque bilaterally at the level of the carotid bulbs. Based on spectral images and color Doppler the overall velocities are consistent with 0 to less than 50% stenosis in the internal carotid vessel s. Bilateral vertebral velocities are antegrade. Normal ICA to CCA ratios noted. Doppler Spectral Velocity Analysis Right Left pCCA 94/12 cm/spCCA 119/14 cm/s mCCA 79/12 cm/smCCA 102/12 cm/s dCCA 68/14 cm/sdCCA 93/16 cm/s ECA 121/ cm/sECA 134/ cm/s pICA 102/22 cm/spICA 96/14 cm/s Gray 91/20 cm/smICA 87/16 cm/s dICA 80/16 cm/sdICA 87/24 cm/s Vert. 48/ cm/sVert. 43/ cm/s ICA/CCA 1.09ICA/CCA 0.81 Critical Notification Critical Value: No <Conclusion> 1. No significant carotid occlusive disease bilaterally. Signed by : Dilip Robledo, Electronically Approved : 03/11/2019 17:34:03
== END | disposition home or self-care (01) ==
LOC: US 10:38
PROVIDERS: ATTEND Internal Medicine Cardiovascular Disease
DX: I65.23 Occlusion and stenosis of bilateral carotid arteries (principal); H35.60 Retinal hemorrhage, unspecified eye
CPT/HCPCS: 93880

== ENCOUNTER 2019-03-19 09:30 | Emergency (ER) | payer MEDICAID ==
[~2019-03-19] VITALS: Ht 154.9 cm; Wt 116.1 kg
[~2019-03-19 09:30] MED LIST changes: -DICL50TA4 PO
[2019-03-19 10:03] VITALS: BP 148/71
--- NOTE | 2019-03-19 10:19 | RAD ---
Examination: 3 views of the right wrist HISTORY: History of right wrist pain, swelling COMPARISON: None available Findings/ impression: There is widened appearance of the scapholunate interval measuring 3.5 mm, correlate for scapholunate ligament tear/injury. Follow-up nonemergent MRI can be considered. Mild degenerative changes identified in the first and second carpometacarpal joints. Electronically signed by: Marcus Andrew MD (03/19/2019 10:16 AM) [id number]
--- NOTE | 2019-03-19 10:38 | PHYS DOC ---
Past History Past Medical History: Diabetes, Hypertension, Hypothyroid Past Surgical History: Knee Replacement Smoking: Non-smoker Alcohol Use: None Drug Use: None Adult General Chief Complaint Chief Complaint: HAND PROBLEM HPI HPI Patient is a 68-year-old female who presents with complaint of right hand/wrist pain and swelling. Patient states that this is been ongoing for quite some time and was seen by her primary provider 2 weeks ago and had x-ray performed. He had informed her that she possibly could have a fracture in the wrist. Patient has not seen orthopedics and was not placed in a splint. She rates pain as moderate and states that pain has gotten quite a bit worse with the last few days and has had increase in swelling and decreased mobility in the joint.[] Review of Systems Review of Systems Constitutional: Denies fever or chills [] Respiratory: Denies cough or shortness of breath [] Cardiovascular: No additional information not addressed in HPI [] Musculoskeletal: Positive right hand and wrist pain [] Integument: Denies rash or skin lesions [] Allergies Allergies Allergies Coded Allergies Type Severity Reaction Last Updated Verified niacin Allergy Intermediate 02/21/18 No Physical Exam Physical Exam Constitutional: Well developed, well nourished, no acute distress, non-toxic appearance. [] Cardiovascular: Regular rate and rhythm[] Lungs & Thorax: Bilateral breath sounds clear to auscultation [] Extremities: Left hand and wrist demonstrates mild soft tissue swelling, primarily on the dorsal aspect with diffuse tenderness. [] Neurologic: Alert and oriented X 3, no focal deficits noted. [] Current Patient Data Vital Signs Vital Signs Date Time Temp Pulse Resp B/P (MAP) Pulse Ox O2 Delivery O2 Flow Rate FiO2 03/19/19 10:03 98.1 82 16 99 Room Air EKG EKG [] Radiology/Procedures Radiology/Procedures [] Impressions: PROCEDURE: WRIST 3V RIGHT Examination: 3 views of the right wrist HISTORY: History of right wrist pain, swelling COMPARISON: None available Findings/ impression: There is widened appearance of the scapholunate interval measuring 3.5 mm, correlate for scapholunate ligament tear/injury. Follow-up nonemergent MRI can be considered. Mild degenerative changes identified in the first and second carpometacarpal joints. Electronically signed by: Marcus Andrew MD (03/19/2019 10:16 AM) [id number] DICTATED AND SIGNED BY: MARCUS ANDREW MD DATE: 03/19/19 1016 CC: GLORIA BELL Jr. DO; MARK KNOWLES MD ~ Course & Med Decision Making Course & Med Decision Making Pertinent Labs and Imaging studies reviewed. (See chart for details) Patient placed in Velcro wrist splint by ER nurse and good fit and alignment is noted post splinting. Dragon Disclaimer Dragon Disclaimer This electronic medical record was generated, in whole or in part, using a voice recognition dictation system. Departure Departure: Impression: Primary Impression: Arthralgia of right wrist Disposition: HOME, SELF-CARE Condition: STABLE Referrals: MARK KNOWLES MD (PCP) Patient Instructions: Arthralgia Scripts Hydrocodone Bit/Acetaminophen (NORCO 5-325 TABLET) 1 Each Tablet 1 TAB PO PRN Q6HRS PRN for PAIN, #12 TAB 0 Refills Prov: GLORIA BELL Jr. DO 03/19/19 Diclofenac Sodium (DICLOFENAC SODIUM) 50 Mg Tablet. 1 TAB PO BID PRN for PAIN, #20 TAB Prov: GLORIA BELL Jr. DO 03/19/19 GLORIA BELL Jr. DO Mar 19, 2019 10:38
[2019-03-19] MEDS ORDERED: DICL50TA4 PO (10:51)
[2019-03-19] MEDS ORDERED: HYDR-3165 PO (10:51)
== END 2019-03-19 10:56 | disposition home or self-care (01) ==
LOC: ER 09:30
DX: M25.531 Pain in right wrist (principal); R22.31 Localized swelling, mass and lump, right upper limb; E11.9 Type 2 diabetes mellitus without complications; I10 Essential (primary) hypertension; E03.9 Hypothyroidism, unspecified; Z88.1 Allergy status to other antibiotic agents
CPT/HCPCS: 29125; 73110; 99284

== ENCOUNTER 2019-09-08 17:02 | Inpatient (IN) | payer MEDICAID ==
[~2019-09-08] VITALS: Ht 154.9 cm; Wt 116.3 kg
[~2019-09-08 17:02] MED LIST changes: +DICL50TA4 PO
[2019-09-08] MEDS ORDERED: DEXTROSE 50% 25 GM / 50ML DISP.SYRIN. IV ONE (17:15)
--- NOTE | 2019-09-08 17:22 | PHYS DOC ---
Past History Past Medical History: Diabetes, Hypertension, Hypothyroid Past Surgical History: Knee Replacement Smoking: Non-smoker Alcohol Use: None Drug Use: None General Adult EDM: Chief Complaint: HYPOGLYCEMIA HPI: HPI: 69F with PMH of HTN, DM on glipizide, hypothyroidism, AF, peripheral neuropathy, who presents for evaluation of altered mental status. The patient was reportedly altered at home following her cardiology appointment this afternoon. She was found to be hypoglycemic at 40 on fingerstick, responsive to 1 amp of D50. The patient is on glipizide monotherapy for type II [id number] diabetes mellitus. Also of note, the patient had a recent increase in her gabapentin dosage, from 300, to 900 mg 3 times daily beginning yesterday. She believes she last took her glipizide at some point this morning. The patient now has no acute medical complaints. Also reports some diminished oral intake over last couple days due to poor appetite. Review of Systems: Review of Systems: Gen: No fever, chills. Eyes: No blurred vision, diplopia. ENT: No nasal congestion, sore throat. CV: No CP, palpitations. Resp. No SOB, cough. GI: No abd pain, N/V. : No dysuria, hematuria. Neuro: No GARZA, dizziness. Reported altered mental status, weakness. MSK: No myalgia, arthralgia, back pain. Skin: No acute rash or lesion. Heart Score: Risk Factors: Risk Factors: DM, Current or recent (<one month) smoker, HTN, HLP, family history of CAD, obesity. Risk Scores: Score 0 - 3: 2.5% MACE over next 6 weeks - Discharge Home Score 4 - 6: 20.3% MACE over next 6 weeks - Admit for Clinical Observation Score 7 - 10: 72.7% MACE over next 6 weeks - Early Invasive Strategies Current Medications: Current Meds: Current Medications Medications (Trade) Dose Ordered Sig/Alejandrina Start Time Stop Time Status Last Admin Dose Admin Dextrose (Dextrose 50%-Water Syringe) 25 gm 1X ONCE 09/08/19 17:15 09/08/19 17:16 Allergies: Allergies: Allergies Coded Allergies Type Severity Reaction Last Updated Verified niacin Allergy Intermediate 02/21/18 No Physical Exam: PE: Gen: NAD. Head: NC/AT. Eyes: No scleral icterus. No conjunctival injection. ENT: MMM. Neck: Supple. NT. CV: RRR. Peripheral pulses intact. Resp: CTAB. Abd: Soft. NT. ND. MSK: No peripheral cyanosis. No edema. Neuro: Initial somnolence responsive to dextrose, now A&Ox3 with strength & sensation grossly intact throughout. Skin. Warm. Dry. Psych: Appropriate mood & affect. Current Patient Data: Labs: Laboratory Tests Test 09/08/19 17:08 Glucose (Fingerstick) 40 mg/dL (70-99) L EKG: EKG: [] Radiology/Procedures: Radiology/Procedures: [] Course & Med Decision Making: Course & Med Decision Making Pertinent Labs and Imaging studies reviewed. (See chart for details) In summary, 69-year-old female who presents for evaluation of altered mental status, found to be hypoglycemic at 40, appropriately responsive to 1 amp of dextrose 50%, with repeat fingerstick at 144. However, she also has acute kidney injury with a creatinine of 3.4, previously normal at 1.1. In the setting of hypoglycemia, acute kidney injury, and sulfonylurea use, the patient will be admitted for further management. Dragon Disclaimer: Dragon Disclaimer: This electronic medical record was generated, in whole or in part, using a voice recognition dictation system. Departure Departure: Impression: Primary Impression: LIDA (acute kidney injury) Additional Impression: Hypoglycemia Disposition: ADMITTED INPATIENT Admitting Physician: Mark Martinez Condition: STABLE Referrals: MARK MARTINEZ MD (PCP) Justification of Admission: Justification of Admission: Justification of Admission Dx: N/A SHAYY CULP DO Sep 08, 2019 17:22
[2019-09-08 17:27] LABS: BASO # 0.1 x10^3/uL (0.0-0.2); BASO % 1 % (0-3); EOS # 0.4 x10^3/uL (0.0-0.7); EOS % 5 % (0-3); HEMATOCRIT 31.7 % (36.0-47.0); HEMOGLOBIN 10.5 g/dL (12.0-15.5); LYMPH # 1.6 x10^3/uL (1.0-4.8); LYMPH % 19 % (24-48); MEAN CORPUSCULAR HEMOGLOBIN 34 pg (25-35); MEAN CORPUSCULAR HGB CONC 33 g/dL (31-37); MEAN CORPUSCULAR VOLUME 103 fL (79-100); MONO # 1.3 x10^3/uL (0.0-1.1); MONO % 16 % (0-9); NEUT # 5.1 x10^3uL (1.8-7.7); NEUT % 60 % (31-73); PLATELET COUNT 315 x10^3/uL (140-400); RED BLOOD COUNT 3.08 x10^6/uL (3.50-5.40); WHITE BLOOD COUNT 8.4 x10^3/uL (4.0-11.0)
[2019-09-08 17:41] LABS: ALBUMIN 2.4 g/dL (3.4-5.0); ALBUMIN/GLOBULIN RATIO 0.5 (1.0-1.7); CALCIUM 8.9 mg/dL (8.5-10.1); CREATININE 3.7 mg/dL (0.6-1.0); GFR 12.1; TOTAL BILIRUBIN 0.6 mg/dL (0.2-1.0); TOTAL PROTEIN 7.2 g/dL (6.4-8.2)
[2019-09-08] MEDS ORDERED: IV NORMAL SALINE 1,000ML 1,000 ML IV ONE (18:00)
[2019-09-08 19:00] VITALS: BP 96/62
[2019-09-08] MEDS ORDERED: FAMO-54 PO (20:21)
[2019-09-08] MEDS ORDERED: ALLO100T PO (20:21)
[2019-09-08] MEDS ORDERED: ATOR10TA60 PO (20:21)
[2019-09-08] MEDS ORDERED: SPIR25TA PO (20:21)
[2019-09-08] MEDS ORDERED: NITROGLYCERIN SUBLINGUAL 0.4 MG BOTTLE OF 25. SL PRN (20:30)
[2019-09-08] MEDS ORDERED: DEXTROSE 50% 25 GM / 50ML DISP.SYRIN. IV PRN (20:30)
[2019-09-08] MEDS ORDERED: NON FORMULARY ITEM (Diclofenac Sodium 1 TAB) PO PRN (20:30)
[2019-09-08] MEDS ORDERED: GLIP5TAB10 PO (21:05)
[2019-09-08] MEDS ORDERED: ANTI-COAG MONITOR BY PHARMACY. MC PRN (21:15)
[2019-09-08] MEDS: NON FORMULARY ITEM (Loteprednol Etabonate (Lotemax) 1 DROP) LEFTEYE SCH (21:37)
[2019-09-08] MEDS: IV DEXTROSE 5% - 0.9 % NACL 1,000 ML IV SCH (21:44)
[2019-09-08] MEDS: cycloSPORINE 0.05% OPTH 1 DROP DROPERETTE OU SCH (21:44)
[2019-09-08] MEDS: ATORVASTATIN CALCIUM 10 MG TABLET. PO SCH (21:45)
[2019-09-08] MEDS: APIXABAN 5 MG TABLET. PO SCH (21:45)
[2019-09-08 22:48] VITALS: BP 94/51
[2019-09-09] MEDS: LEVOTHYROXINE 125 MCG TABLET PO SCH (04:52)
[2019-09-09] MEDS: HYDROcodone/APAP 5/325MG 1 TAB TABLET PO PRN ×2 (04:52→20:27)
[2019-09-09] MEDS: IV DEXTROSE 5% - 0.9 % NACL 1,000 ML IV SCH ×2 (04:53→20:27)
[2019-09-09 04:57] VITALS: BP 129/76
[2019-09-09] MEDS: GABAPENTIN 300 MG CAPSULE. PO SCH (08:16)
[2019-09-09] MEDS: APIXABAN 5 MG TABLET. PO SCH ×2 (08:16→20:28)
[2019-09-09] MEDS: LACTOBACILLUS RHAMNOSUS GG 1 CAPSULE. PO SCH (08:16)
[2019-09-09] MEDS: ALLOPURINOL 100 MG TABLET. PO SCH (08:16)
[2019-09-09] MEDS: ASPIRIN CHEWABLE 81 MG TABLET. PO SCH (08:16)
[2019-09-09] MEDS: FAMOTIDINE 20 MG TABLET PO SCH (08:17)
[2019-09-09] MEDS: cycloSPORINE 0.05% OPTH 1 DROP DROPERETTE OU SCH ×2 (08:17→20:28)
[2019-09-09] MEDS: NON FORMULARY ITEM (Loteprednol Etabonate (Lotemax) 1 DROP) LEFTEYE SCH ×4 (08:17→20:28)
[2019-09-09 12:47] VITALS: BP 89/54
[2019-09-09 13:28] LABS: BASO % 1 % (0-3); EOS # 0.3 x10^3/uL (0.0-0.7); EOS % 8 % (0-3); HEMATOCRIT 29.3 % (36.0-47.0); HEMOGLOBIN 9.4 g/dL (12.0-15.5); LYMPH # 0.9 x10^3/uL (1.0-4.8); LYMPH % 24 % (24-48); MEAN CORPUSCULAR HEMOGLOBIN 34 pg (25-35); MEAN CORPUSCULAR HGB CONC 32 g/dL (31-37); MEAN CORPUSCULAR VOLUME 105 fL (79-100); MONO # 0.8 x10^3/uL (0.0-1.1); MONO % 20 % (0-9); NEUT # 1.9 x10^3uL (1.8-7.7); NEUT % 48 % (31-73); PLATELET COUNT 239 x10^3/uL (140-400); RED BLOOD COUNT 2.79 x10^6/uL (3.50-5.40); RED CELL DISTRIBUTION WIDTH 16.3 % (11.5-14.5); WHITE BLOOD COUNT 3.8 x10^3/uL (4.0-11.0)
[2019-09-09 13:47] LABS: CALCIUM 7.8 mg/dL (8.5-10.1); CREATININE 3.3 mg/dL (0.6-1.0); GFR 13.8; POTASSIUM 4.1 mmol/L (3.5-5.1)
[2019-09-09 15:42] VITALS: BP 91/58
[2019-09-09 19:58] VITALS: BP 114/59
[2019-09-09] MEDS: ATORVASTATIN CALCIUM 10 MG TABLET. PO SCH (20:28)
--- NOTE | 2019-09-09 23:56 | HP ---
ADMIT DATE: 09/08/2019 HISTORY OF PRESENT ILLNESS: This is a 69-year-old female who came in through the Emergency Room. She came in feeling very sick, had altered mental status. She was found with the command center officer to have a blood sugar of 40. She was given 1 amp of D50. The patient is on multiple oral hypoglycemic agents. However, the patient's blood sugars stayed in the 40s-50s. She was admitted to further evaluate her sugar that only came up to approximately 60 with the D50. She was admitted for observation and further evaluation. Also, it appeared that she was in some form of acute renal failure; her creatinine which had jumped up to a range of approximately 3.3 and a BUN of 68. The patient was admitted for hypoglycemia and acute on chronic renal failure with acute renal stasis, for IV normal saline as well as D5. PAST MEDICAL HISTORY: Extraction of the right eye cataract; tonsillectomy; peripheral neuropathy; coronary artery disease; chronic AFib, on chronic anticoagulation with Eliquis; hypertension; gastroparesis; diverticulitis; abdominal surgery; hernia repair; obesity; cervical cancer; tubal ligation; hysterectomy; renal disease; acute renal failure; bilateral knee pain; gout; orthopedic surgery; right hand carpal tunnel surgery; left rotator cuff surgery; bilateral knee replacement; diabetes, oral medications only; hypothyroidism; history of cervical cancer; influenza; pneumococcal, up-to-date. FAMILY HISTORY: Positive for hypertension in the father, mother and daughter; diabetes in the daughter, mother; sister with lung cancer; atrial fibrillation in the daughter; stroke in the sister and cardiovascular disease in brothers, father and mother. ALLERGIES: ADVERSE REACTION TO NIACIN. HOME MEDICATIONS: Include Eliquis 5 b.i.d., Lipitor 10, omega 3, hydralazine 25 b.i.d., nitroglycerin, metoprolol, losartan/HCTZ, spironolactone, aspirin, diclofenac, hydrocodone, gabapentin, famotidine 20, lactobacillus, glipizide and allopurinol 100 mg. SOCIAL HISTORY: The patient is a full code. She has been encouraged to stop smoking. Denies alcohol, hard drug use. REVIEW OF SYSTEMS: The patient has basically change in mental status, markedly lethargic, decreased mentation initially. The patient notes that she is achy all over and just does not feel good. PHYSICAL EXAMINATION: GENERAL: The patient is a pleasant white female, morbidly obese. VITAL SIGNS: Blood pressure 89/54, respiratory rate 20, pulse 75. She is afebrile. HEENT: The patient's head was atraumatic, normocephalic. Eyes, PERRLA without jaundice. The mouth and throat show poor dentition. NECK: Supple without JVD, carotid bruits. No thyromegaly. LUNGS: The patient's lungs were diminished throughout, some crackles in the bases. CARDIOVASCULAR: Irregularly irregular rhythm. ABDOMEN: Soft, ____, nontender. No rebounding, no guarding. Positive bowel sounds. No hepatosplenomegaly was noted. EXTREMITIES: No clubbing or cyanosis. Trace edema noted. NEUROLOGIC: The patient is alert and oriented presently, although when she first came in she was markedly obtunded and had change in mental status, not able to really talk very well and was really spaced out. She did improve with D50 as well as getting additional D5 normal saline. IMPRESSION: Hypoglycemia as well as hypotension, morbid obesity, type 2 diabetes, acute on top of chronic renal failure. PLAN: The patient will be admitted. Continue on D5 normal saline. Continue to monitor her blood pressure as well as further evaluation on her renal failure as well. Change in mental status. The patient to continue to be monitored and continue on IV fluids, get her blood pressure up, the blood sugar up, hold her medications that are oral hypoglycemics, also continue to monitor her renal function and make further evaluation on that as indicated. MARK KNOWLES MD DR: OANH/arnulfo JOB#: [id number] / [id number]
[2019-09-10 00:29] VITALS: BP 96/60
[2019-09-10 05:10] VITALS: BP 101/59
[2019-09-10] MEDS: LEVOTHYROXINE 125 MCG TABLET PO SCH (05:14)
[2019-09-10 06:07] LABS: HEMOGLOBIN A1C 5.5 % (4.8-5.6)
[2019-09-10 06:39] LABS: BASO % 1 % (0-3); EOS # 0.3 x10^3/uL (0.0-0.7); EOS % 8 % (0-3); HEMATOCRIT 28.1 % (36.0-47.0); HEMOGLOBIN 9.3 g/dL (12.0-15.5); LYMPH # 0.7 x10^3/uL (1.0-4.8); LYMPH % 24 % (24-48); MEAN CORPUSCULAR HEMOGLOBIN 34 pg (25-35); MEAN CORPUSCULAR HGB CONC 33 g/dL (31-37); MEAN CORPUSCULAR VOLUME 104 fL (79-100); MONO # 0.4 x10^3/uL (0.0-1.1); MONO % 15 % (0-9); NEUT # 1.6 x10^3uL (1.8-7.7); NEUT % 53 % (31-73); PLATELET COUNT 264 x10^3/uL (140-400); RED BLOOD COUNT 2.71 x10^6/uL (3.50-5.40); RED CELL DISTRIBUTION WIDTH 15.8 % (11.5-14.5); WHITE BLOOD COUNT 3.1 x10^3/uL (4.0-11.0)
[2019-09-10 06:48] LABS: CALCIUM 8.1 mg/dL (8.5-10.1); CREATININE 2.1 mg/dL (0.6-1.0); GFR 23.3; POTASSIUM 4.2 mmol/L (3.5-5.1)
[2019-09-10] MEDS: ALLOPURINOL 100 MG TABLET. PO SCH (08:14)
[2019-09-10] MEDS: LACTOBACILLUS RHAMNOSUS GG 1 CAPSULE. PO SCH (08:14)
[2019-09-10] MEDS: FAMOTIDINE 20 MG TABLET PO SCH (08:14)
[2019-09-10] MEDS: GABAPENTIN 300 MG CAPSULE. PO SCH (08:15)
[2019-09-10] MEDS: APIXABAN 5 MG TABLET. PO SCH (08:15)
[2019-09-10] MEDS: NON FORMULARY ITEM (Loteprednol Etabonate (Lotemax) 1 DROP) LEFTEYE SCH ×2 (08:15→09:04)
[2019-09-10] MEDS: ASPIRIN CHEWABLE 81 MG TABLET. PO SCH (08:15)
[2019-09-10] MEDS: cycloSPORINE 0.05% OPTH 1 DROP DROPERETTE OU SCH (08:15)
[2019-09-10] MEDS ORDERED: GABA-585 PO (10:02)
[2019-09-10] MEDS ORDERED: METO50TA6 PO (10:02)
[2019-09-10 10:21] VITALS: BP 103/59
== END 2019-09-10 10:50 | disposition home or self-care (01) | DRG 637 ==
LOC: ER 17:02 → 1 SOUTH 18:00
PROVIDERS: ADMIT Family Medicine; ATTEND Family Medicine
DX: E11.649 Type 2 diabetes mellitus with hypoglycemia without coma (principal); E43 Unspecified severe protein-calorie malnutrition; I48.20 Chronic atrial fibrillation, unspecified; Z68.42 Body mass index [BMI] 45.0-49.9, adult; E03.9 Hypothyroidism, unspecified; E11.22 Type 2 diabetes mellitus with diabetic chronic kidney disease; E11.42 Type 2 diabetes mellitus with diabetic polyneuropathy; N17.0 Acute kidney failure with tubular necrosis; E11.43 Type 2 diabetes mellitus with diabetic autonomic (poly)neuropathy; E66.01 Morbid (severe) obesity due to excess calories; F17.200 Nicotine dependence, unspecified, uncomplicated; M10.9 Gout, unspecified; Z96.653 Presence of artificial knee joint, bilateral; I12.9 Hypertensive chronic kidney disease with stage 1 through stage 4 chronic kidney disease, or unspecified chronic kidney disease; I25.10 Atherosclerotic heart disease of native coronary artery without angina pectoris; K31.84 Gastroparesis; N18.9 Chronic kidney disease, unspecified; Z79.01 Long term (current) use of anticoagulants; Z79.84 Long term (current) use of oral hypoglycemic drugs; Z85.41 Personal history of malignant neoplasm of cervix uteri; Z90.710 Acquired absence of both cervix and uterus; Z88.8 Allergy status to other drugs, medicaments and biological substances
CPT/HCPCS: 36415; 80048; 80053; 82947; 83036; 83735; 84443; 85025; 96374; J7042; 97110; 97116; 97530; 97535; 99285-25; J7030

== ENCOUNTER → 2020-10-10 | Outpatient (CLI) | payer MEDICAID ==
[~2020-10-10] MED LIST changes: +ALLO100T PO; +ATOR10TA60 PO; +DOXY-181 PO; -DOXY100C14 PO; +FAMO-54 PO; +GLIP5TAB10 PO; -LISI-334 PO; +LISI20TA18 PO; +SPIR25TA PO
--- NOTE | 2020-10-10 08:43 | RAD ---
Examination: CT of the abdomen pelvis without contrast HISTORY: History of generalized abdominal pain COMPARISON: 07/02/2019 TECHNIQUE: Axial CT images of the abdomen pelvis were performed without contrast. Coronal and sagitta l reformats are performed. Exposure: One or more of the following individualized dose reduction techniques were utilized for thi s examination: 1. Automated exposure control 2. Adjustment of the mA and/or kV according to patient size 3. Use of iterative reconstruction technique FINDINGS: There is a 5 mm nodule identified in the right lower lobe of the lung. No evidence of free air identi fied in the abdomen The evaluation of the solid organs is limited due to lack of IV contrast. The evaluation of bowel is limited due to lack of oral contrast. There is questionable mild nodular appearance of the liver. Few calcified granulomas identified in the spleen. Cholecystectomy changes. The stomach is mildly disten ded. The visualized pancreas grossly appears unremarkable. Small bowel is nondilated. There is mild t hickened appearance of the wall of the small bowel loop on the left. Feces and gas noted in the colon . Multiple sigmoid colon diverticulosis. Mild thickened appearance of the wall of the sigmoid colon. No evidence of intrarenal collecting system calculi or hydronephrosis. Moderate degenerative changes lumbar spine. L5 spondylolysis with 2 mm anterolisthesis of L5 on S1. IMPRESSION: 1. Mild thickened appearance of the wall of the small bowel loop on the left could be due to nondist ention or mild enteritis. 2. Mild thickened appearance of the wall of the sigmoid colon probably due to nondistention or mild colitis. 3. Multiple sigmoid colon diverticulosis. 4. 5 mm nodule identified in the right lower lobe of the lung. Follow-up per Fleischner Society [facility] Fleischner Society 2017 guidelines for management of incidentally detected pulmonary nodules in adult s SOLID NODULES: SINGLE NODULE: Less than 6 mm; low risk-no routine follow-up; high risk-optional CT study at 12 mo nths. (Certain patients at high risk with suspicious nodule morphology, upper lobe location, or both may warrant 12 month follow-up) 6-8 mm; low risk-CT study at 6-12 months, then consider CT at 18-24 months; high risk-CT study at 6-1 2 months, then CT at 18-24 months. Greater than 8 mm; low risk-consider CT at 3 months, PET/CT or tissue sampling; high risk-consider CT at 3 months, PET/CT, or tissue sampling. MULTIPLE NODULES: Less than 6 mm; low risk-no routine follow-up; high risk-optional CT at 12 month s (certain patients at high risk for suspicious nodule. If solid components or growth develops, consi yajaira resection morphology, upper lobe location, or both may warrant 12 month follow-up) 6-8 mm; low risk-CT at 3-6 months, then consider CT at 18-24 months; high risk-CT at 3-6 months, then at 18-24 months. Greater than 8 mm; low risk-CT at 3-6 months, then consider CT at 18-24 months; high risk-CT at 3-6 m onths, then at 18-24 months. Note - Use most suspicious nodule as guide to management. Follow-up intervals may vary according to s ize and risk. SUBSOLID NODULES SINGLE(ground glass): less than 6 mm-no routine follow-up; greater than or equal to 6 mm-CT at 6-1 2 months to confirm persistence, then CT every 2 years until 5 years. (In certain suspicious nodules less than 6 mm, consider follow-up at 2 and 4 years. If solid component(s) or growth develops, consid er resection.) SINGLE (part solid): Less than 6 mm-no routine follow-up; greater than or equal to 6 mm-CT at 3-6 months to confirm persistence. If unchanged and solid component remains less than 6 mm, annual CT stephanie uld be performed for 5 years. (In practice, part solid nodules cannot be defined as such until greate r than or equal to 6 mm, and nodules less than 6 mm do not usually require follow-up. Persistent part solid nodules with solid components greater than or equal to 6 mm should be considered highly suspic ious.) MULTIPLE; less than 6 mm-CT at 3-6 months. If stable, consider CT at 2 and 4 years; greater than o r equal to 6 mm-CT at 3-6 months. Subsequent management based on the most suspicious nodule(s). (Mult iple less than 6 mm pure ground glass nodules are usually benign, but consider follow-up in selected patients at high risk at 2 and 4 years.) NOTE - these recommendations do not apply to lung cancer screening, patients with immunosuppression, or patients with known primary cancer. Electronically signed by: Marcus Andrew MD (10/10/2020 8:40 AM) [id number]
== END ==
LOC: CT 07:40
PROVIDERS: ATTEND Family Medicine
DX: K57.30 Diverticulosis of large intestine without perforation or abscess without bleeding (principal); M43.07 Spondylolysis, lumbosacral region; R91.8 Other nonspecific abnormal finding of lung field; R10.84 Generalized abdominal pain; R11.2 Nausea with vomiting, unspecified
CPT/HCPCS: 74176

== ENCOUNTER 2021-03-05 16:27 | Emergency (ER) | payer MEDICAID ==
[~2021-03-05] VITALS: Ht 154.9 cm; Wt 118.2 kg
[~2021-03-05 16:27] MED LIST changes: +POTA-112 PO; -POTA10TA5 PO
[2021-03-05 18:30] VITALS: BP 128/76
--- NOTE | 2021-03-05 18:42 | PHYS DOC ---
Past History Past Medical History: A-Fib, Diabetes, Hypertension, Hypothyroid Additional Past Medical Histor: neuropathy, gastroparesis Past Surgical History: Other Smoking: Non-smoker Alcohol Use: None Drug Use: None Adult General Chief Complaint Chief Complaint: ABNORMAL LABS HPI HPI Patient is a 70-year-old female with a past medical history significant for diabetes, A. fib and hypertension as well as hypothyroidism who presents at the request of her primary care physician for an abnormal lab on her visit 3 days ago. Patient states they called her today and told her to go to the emergency department to have her potassium checked. Patient is asymptomatic. Denies any recent travels, traumas, illnesses, fevers, chest pain, shortness of breath, abdominal pain, nausea, vomiting, dysuria, hematuria, blood in the stool. Denies any numbness/weakness/tingling. Denies any trouble sitting, standing or walking. States she would not have come but her doctor wanted her to. Review of Systems Review of Systems Review of systems otherwise unremarkable except noted in HPI Allergies Allergies Allergies Coded Allergies Type Severity Reaction Last Updated Verified niacin Allergy Intermediate 03/05/21 Yes Physical Exam Physical Exam Constitutional: Well developed, well nourished, no acute distress, non-toxic appearance. [] HENT: Normocephalic, atraumatic, oropharynx moist, Eyes: conjunctiva normal, no discharge. [] Neck: Normal range of motion, no tenderness, supple, no stridor. [] Cardiovascular:Heart rate regular rhythm, no murmur [] Lungs & Thorax: Bilateral breath sounds clear to auscultation [] Abdomen: soft, no tenderness, no masses, no pulsatile masses. [] Skin: Warm, dry, no erythema, no rash. [] Back: No tenderness, no CVA tenderness. [] Extremities: No tenderness, no cyanosis, no clubbing, ROM intact, no edema. [] Neurologic: Alert and oriented X 3, normal motor function, normal sensory function, able to sit, stand and walk without issue no focal deficits noted. [] Psychologic: Affect normal, judgement normal, mood normal. [] Current Patient Data Vital Signs Vital Signs Date Time Temp Pulse Resp B/P (MAP) Pulse Ox O2 Delivery O2 Flow Rate FiO2 03/05/21 18:30 97.8 61 20 128/76 (93) 99 Room Air 0 EKG EKG [] Radiology/Procedures Radiology/Procedures [] Heart Score C/O Chest Pain: No Risk Factors: Risk Factors: DM, Current or recent (<one month) smoker, HTN, HLP, family histo ry of CAD, obesity. Risk Scores: Risk Factors: DM, Current or recent (<one month) smoker, HTN, HLP, family history of CAD, obesity. Course & Med Decision Making Course & Med Decision Making Patient is a 70-year-old female who presents at the request of her PCP for abnormal potassium Vital signs not concerning. Physical exam noted above. EKG with a rate of 62, QRS of 80, QTc 388, no STEMI, normal. Troponin normal. Initial potassium of 6. Started on IV fluid resuscitation, given half home dose of Lasix and calcium gluconate. On reevaluation patient remained asymptomatic and wanting to be discharged home. Repeat potassium after treatment 5.5. Discussed all findings with patient. Offered another liter of fluid and more time in the ED and repeat labs but patient stated she was feeling fine, wants to go home and will follow up with her doctor tomorrow. Gave strict return precautions to the ED. Advised to take all medications as prescribed. Advised to follow-up first thing in the morning with primary care physician. Patient grateful, verbalized understanding and agreed with plan of amrita hazel. [] Matt Disclaimer Dragon Disclaimer This electronic medical record was generated, in whole or in part, using a voice recognition dictation system. Departure Departure: Impression: Primary Impression: Hyperkalemia Disposition: HOME / SELF CARE / HOMELESS Condition: GOOD Referrals: MARK KNOWLES MD (PCP) Patient Instructions: Hyperkalemia Additional Instructions: Thank you for coming in to the emergency department tonight allowing us to take care of you. Please read the attached information carefully to go back over some of the things we discussed. It is very important that you take all your medications exactly as prescribed, and drink plenty of fluids. Please follow-up with your primary care physician first thing in the morning to update on your ED visit and set up a follow-up appointment as soon as possible. Please come back to the emergency department immediately with new or concerning symptoms as we discussed. DICK DEVRIES MD Mar 05, 2021 18:42
[2021-03-05 19:39] LABS: CALCIUM 8.9 mg/dL (8.5-10.1); CREATININE 2.1 mg/dL (0.6-1.0); GFR 23.2
[2021-03-05] MEDS ORDERED: CALCIUM GLUCONATE 1,000 MG/10 ML VIAL IV ONE (19:45)
[2021-03-05] MEDS ORDERED: FUROSEMIDE 40 MG/4 ML VIAL IVP ONE (19:45)
[2021-03-05] MEDS ORDERED: IV RINGERS SOLUTION,LACTATED 1,000 ML IV ONE (19:45)
[2021-03-05 20:03] LABS: BASO % 1 % (0-3); EOS # 0.3 x10^3/uL (0.0-0.7); EOS % 7 % (0-3); HEMATOCRIT 34.4 % (36.0-47.0); HEMOGLOBIN 11.3 g/dL (12.0-15.5); LYMPH # 1.1 x10^3/uL (1.0-4.8); LYMPH % 28 % (24-48); MEAN CORPUSCULAR HEMOGLOBIN 35 pg (25-35); MEAN CORPUSCULAR HGB CONC 33 g/dL (31-37); MEAN CORPUSCULAR VOLUME 108 fL (79-100); MONO # 0.7 x10^3/uL (0.0-1.1); MONO % 18 % (0-9); NEUT # 1.8 x10^3uL (1.8-7.7); NEUT % 46 % (31-73); PLATELET COUNT 225 x10^3/uL (140-400); RED BLOOD COUNT 3.19 x10^6/uL (3.50-5.40); RED CELL DISTRIBUTION WIDTH 14.4 % (11.5-14.5)
[2021-03-05 22:44] LABS: CALCIUM 9.7 mg/dL (8.5-10.1); GFR 24.6; POTASSIUM 5.5 mmol/L (3.5-5.1)
--- NOTE | 2021-03-06 08:25 | EKG ---
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
== END 2021-03-05 23:13 | disposition home or self-care (01) ==
LOC: ER 16:27
DX: E87.5 Hyperkalemia (principal); I48.91 Unspecified atrial fibrillation; I10 Essential (primary) hypertension; E03.9 Hypothyroidism, unspecified; E11.40 Type 2 diabetes mellitus with diabetic neuropathy, unspecified; Z88.1 Allergy status to other antibiotic agents
CPT/HCPCS: 36415; 80048; 84484; 85025; 93005; 96361; 96374; 96375; 99284; J0610; J1940; J7120

== ENCOUNTER 2021-04-05 14:16 | Inpatient (IN) | payer MEDICAID ==
[~2021-04-05] VITALS: Ht 154.9 cm; Wt 120.0 kg
--- NOTE | 2021-04-05 14:50 | PHYS DOC ---
Past History Past Medical History: A-Fib, Diabetes, Hypertension, Hypothyroid Additional Past Medical Histor: neuropathy, gastroparesis Past Surgical History: Other Smoking: Non-smoker Alcohol Use: None Drug Use: None General Adult EDM: Chief Complaint: SHORTNESS OF BREATH HPI: HPI: 70-year-old female presents with shortness of breath, body aches, fatigue. She has had the symptoms for 2 days. She has found out that her tested positive for COVID-19. The patient is not vaccinated because she did not get around to it. She does not believe she has had a fever. She has a history of hypertension, A. fib, obesity. Review of Systems: Review of Systems: Constitutional: Denies fever or chills. Body aches, fatigue. Eyes: Denies change in visual acuity HENT: Denies nasal congestion or sore throat Respiratory: shortness of breath Cardiovascular: Denies chest pain or edema GI: Denies abdominal pain, nausea, vomiting, bloody stools or diarrhea : Denies dysuria Musculoskeletal: Denies back pain or joint pain Integument: Denies rash Neurologic: Denies headache, focal weakness or sensory changes Endocrine: Denies polyuria or polydipsia Lymphatic: Denies swollen glands Psychiatric: Denies depression or anxiety Allergies: Allergies: Allergies Coded Allergies Type Severity Reaction Last Updated Verified niacin Allergy Intermediate 03/05/21 Yes Physical Exam: PE: Constitutional: Well developed, well nourished, morbidly obese, no acute distress, non-toxic appearance. [] HENT: Normocephalic, atraumatic, bilateral external ears normal, oropharynx moist, no oral exudates, nose normal. [] Eyes: PERRLA, EOMI, conjunctiva normal, no discharge. [] Neck: Normal range of motion, no tenderness, supple, no stridor. [] Cardiovascular:Heart rate regular rhythm, no murmur [] Lungs & Thorax: Bilateral breath sounds diminished [] Abdomen: Bowel sounds normal, soft, no tenderness, no masses, no pulsatile masses. [] Skin: Warm, dry, no erythema, no rash. [] Back: No tenderness, no CVA tenderness. [] Extremities: No tenderness, no cyanosis, no clubbing, ROM intact, no edema. [] Neurologic: Alert and oriented X 3, normal motor function, normal sensory func tion, no focal deficits noted. [] Psychologic: Affect normal, judgement normal, mood normal. [] EKG: EKG: Irregular rhythm, rate 149, normal axis, no ST elevation or depression. [] Radiology/Procedures: Radiology/Procedures: [] Impressions: CTA CHEST INDICATION: SOB, tachycardia, flu positive, COVID-positive Comparison: Radiograph 04/05/2021. CT abdomen pelvis 10/11/2019 TECHNIQUE: Following the uneventful administration of intravenous contrast, 75 cc Omnipaque 350, axial CT sections were obtained through the lungs and upper abdomen. Multiplanar reconstructions and MIP images were obtained. PQRS compliance statement: One or more of the following individualized dose reduction techniques were utilized for this examination: 1. Automated exposure control 2. Adjustment of the mA and/or kV according to patient size 3. Use of iterative reconstruction technique FINDINGS: Pulmonary arteries: No evidence of pulmonary thromboembolic disease. Lungs and Airways: Right upper and middle lobe consolidations. Stable small pulmonary nodules. No abnormality of the central airways. Pleura: The pleural spaces are normal. Heart and Mediastinum: The visualized thyroid is normal in size and attenuation. No axillary or supraclavicular lymphadenopathy. No mediastinal, hilar or retrocrural lymphadenopathy. Normal cardiac size. No pericardial effusion. Coronary artery atherosclerotic disease. Atherosclerosis of the thoracic. Abdomen: Cholecystectomy. Bones and Soft Tissues: Degenerative changes of the spine. IMPRESSION: 1. No evidence of pulmonary thromboembolic disease. 2. Right upper and middle lobe consolidations, likely infection. Electronically signed by: Rahul Gill MD (04/05/2021 5:18 PM) [id number] DICTATED AND SIGNED BY: RAHUL GILL MD DATE: 04/05/21 171 CC: DELORIS VELASQUEZ DO; MARK KNOWLES MD ~MTH0 0 Heart Score: C/O Chest Pain: N/A Risk Factors: Risk Factors: DM, Current or recent (<one month) smoker, HTN, HLP, family history of CAD, obesity. Risk Scores: Score 0 - 3: 2.5% MACE over next 6 weeks - Discharge Home Score 4 - 6: 20.3% MACE over next 6 weeks - Admit for Clinical Observation Score 7 - 10: 72.7% MACE over next 6 weeks - Early Invasive Strategies Course & Med Decision Making: Course & Med Decision Making Pertinent Labs and Imaging studies reviewed. (See chart for details) The patient's labs are significant for mild anemia and an elevated creatinine. These labs are both similar to previous in the chart. The patient is positive for influenza B and COVID-19. Her heart rate is elevated between the 120s and 150. Given her history of atrial fibrillation we will try 20 of Cardizem. We have also started a liter normal saline. The patient's heart rate has slowed and she appears to be in sinus rhythm with a rate of 97. I also gave her 10 of metoprolol IV. The patient is saturating okay on room air however she is breathing over 30 times a minute. Patient appears to have right-sided pneumonia by chest x-ray and CT angiogram. There is no pulmonary embolus. I will admit the patient to the hospital and treat her with antibiotics and Decadron. I spoke with Dr. Knowles and he has accepted the patient for admission [] Matt Disclaimer: Dragdaria Disclaimer: This electronic medical record was generated, in whole or in part, using a voice recognition dictation system. Departure Departure: Impression: Primary Impression: Pneumonia involving right lung Additional Impressions: Influenza B COVID-19 Disposition: ADMITTED INPATIENT Admitting Physician: Mark Knowles Condition: STABLE Referrals: MARK KNOWLES MD (PCP) DELORIS VELASQUEZ DO Apr 05, 2021 14:50
[2021-04-05] MEDS ORDERED: IV NORMAL SALINE 1,000ML 1,000 ML IV ONE (15:00)
[2021-04-05] MEDS ORDERED: dilTIAZem 25 MG/5 ML VIAL IVP ONE (15:00)
--- NOTE | 2021-04-05 15:08 | RAD ---
EXAM: Chest, single view. HISTORY: Shortness of breath. Covid 19. COMPARISON: 02/20/2018 FINDINGS: A frontal view of the chest is obtained. There is right upper lobe interstitial infiltrate. There is no consolidation, pleural effusion or pneumothorax. The heart is stable in size. IMPRESSION: Right upper lobe interstitial infiltrate. Follow-up to confirm resolution. Electronically signed by: Martine Martinez MD (04/05/2021 3:06 PM) [id number]
[2021-04-05 15:19] LABS: BASO % 0 % (0-3); EOS % 0 % (0-3); HEMATOCRIT 33.3 % (36.0-47.0); LYMPH # 0.6 x10^3/uL (1.0-4.8); LYMPH % 6 % (24-48); MEAN CORPUSCULAR HEMOGLOBIN 35 pg (25-35); MEAN CORPUSCULAR HGB CONC 33 g/dL (31-37); MEAN CORPUSCULAR VOLUME 107 fL (79-100); MONO # 0.6 x10^3/uL (0.0-1.1); MONO % 7 % (0-9); NEUT # 8.5 x10^3uL (1.8-7.7); NEUT % 87 % (31-73); PLATELET COUNT 186 x10^3/uL (140-400); RED BLOOD COUNT 3.12 x10^6/uL (3.50-5.40); RED CELL DISTRIBUTION WIDTH 15.5 % (11.5-14.5); WHITE BLOOD COUNT 9.7 x10^3/uL (4.0-11.0)
[2021-04-05 15:23] LABS: CALCIUM 8.9 mg/dL (8.5-10.1); CREATININE 1.6 mg/dL (0.6-1.0); GFR 31.8; POTASSIUM 4.1 mmol/L (3.5-5.1)
[2021-04-05 15:30] LABS: ALBUMIN 2.8 g/dL (3.4-5.0); ALBUMIN/GLOBULIN RATIO 0.6 (1.0-1.7); TOTAL BILIRUBIN 1.5 mg/dL (0.2-1.0); TOTAL PROTEIN 7.6 g/dL (6.4-8.2)
[2021-04-05 15:36] LABS: INFLUENZA A PATIENT NEGATIVE (NEGATIVE)
[2021-04-05 15:41] LABS: INFLUENZA B PATIENT POSITIVE (NEGATIVE)
[2021-04-05] MEDS ORDERED: IOHEXOL 350 MG/ML 100 ML VIAL. IV ONE (16:15)
[2021-04-05] MEDS ORDERED: METOPROLOL TARTRATE 5 MG/5 ML VIAL. IV ONE (17:00)
[2021-04-05] MEDS ORDERED: AZITHROMYCIN 250 MG TABLET. PO ONE (17:15)
[2021-04-05] MEDS ORDERED: DEXAMETHASONE SOD PHOS 10 MG/ML VIAL. IV ONE (17:15)
--- NOTE | 2021-04-05 17:20 | RAD ---
CTA CHEST INDICATION: SOB, tachycardia, flu positive, COVID-positive Comparison: Radiograph 04/05/2021. CT abdomen pelvis 10/11/2019 TECHNIQUE: Following the uneventful administration of intravenous contrast, 75 cc Omnipaque 350, axia l CT sections were obtained through the lungs and upper abdomen. Multiplanar reconstructions and MIP images were obtained. PQRS compliance statement: One or more of the following individualized dose reduction techniques were utilized for this examinat ion: 1. Automated exposure control 2. Adjustment of the mA and/or kV according to patient size 3. Use of iterative reconstruction technique FINDINGS: Pulmonary arteries: No evidence of pulmonary thromboembolic disease. Lungs and Airways: Right upper and middle lobe consolidations. Stable small pulmonary nodules. No abn ormality of the central airways. Pleura: The pleural spaces are normal. Heart and Mediastinum: The visualized thyroid is normal in size and attenuation. No axillary or supra clavicular lymphadenopathy. No mediastinal, hilar or retrocrural lymphadenopathy. Normal cardiac size . No pericardial effusion. Coronary artery atherosclerotic disease. Atherosclerosis of the thoracic. Abdomen: Cholecystectomy. Bones and Soft Tissues: Degenerative changes of the spine. IMPRESSION: 1. No evidence of pulmonary thromboembolic disease. 2. Right upper and middle lobe consolidations, likely infection. Electronically signed by: Jori Gill MD (04/05/2021 5:18 PM) [id number]
[2021-04-05] MEDS ORDERED: cefTRIAXone SODIUM 1 GM VIAL ONE (17:50)
[2021-04-05] MEDS ORDERED: IV NORMAL SALINE 50ML 50 ML ONE (17:50)
[2021-04-05] MEDS ORDERED: ONDANSETRON PF 4 MG/2 ML VIAL. IVP PRN (18:00)
[2021-04-05] MEDS ORDERED: ACETAMINOPHEN 325 MG TABLET PO PRN (18:00)
[2021-04-05 19:30] VITALS: BP 139/64
--- NOTE | 2021-04-05 20:00 | NUR ---
Pt admitted from ER to [facility] room 103 via [facility] accompanied by EMS and nursing staff. Pt transferred from gurney to bed with stand-by assist. Pt here for c/o SOA and fatigue, found to be +Covid & +Flu B in ER today. Pt stated that her found out today that he is +Covid. Pt has not had her Covid vaccine. Admission assessment completed. Pt A&Ox4, able to answer questions appropriately. Pt placed on Telemetry, SR noted on monitor. Health history and home medications reviewed with pt. Pt lives at home with and family. POC reviewed with pt, understanding verbalized. Marshal for VTE. Dr Martinez called for orders.
[2021-04-05] MEDS ORDERED: guaiFENesin/CODEINE 100mg/10mg 5 ML LIQUID PO PRN (21:15)
[2021-04-05] MEDS ORDERED: LOSA100T14 PO (21:26)
[2021-04-05] MEDS ORDERED: CHOL400T36 PO (21:26)
[2021-04-05] MEDS ORDERED: OMEG-152 PO (21:26)
[2021-04-05] MEDS ORDERED: HYDR-2868 PO (21:26)
[2021-04-05] MEDS ORDERED: METOPROLOL TART IMMED RELEASE 50 MG TABLET PO PRN (22:00)
[2021-04-05] MEDS ORDERED: HYDROcodone/APAP 5/325MG 1 TAB TABLET PO PRN (22:00)
[2021-04-05] MEDS: BUDESONIDE 0.5 MG/2 ML NEBU NEB SCH (22:19)
[2021-04-05] MEDS: DEXAMETHASONE SOD PHOS 4 MG/ML VIAL. IVP SCH (22:19)
[2021-04-05] MEDS: OSELTAMIVIR 75 MG CAPSULE PO SCH (22:19)
[2021-04-05 22:36] VITALS: BP 114/63
[2021-04-06] MEDS: LEVOTHYROXINE 125 MCG TABLET PO SCH (05:44)
[2021-04-06] MEDS: DEXAMETHASONE SOD PHOS 4 MG/ML VIAL. IVP SCH ×4 (05:44→23:30)
[2021-04-06 06:00] VITALS: BP 107/57
--- NOTE | 2021-04-06 06:32 | EKG ---
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
[2021-04-06] MEDS ORDERED: METO100T7 PO (06:40)
[2021-04-06] MEDS: NON FORMULARY ITEM (Loteprednol Etabonate (Lotemax) 1 DROP) LEFTEYE SCH ×4 (09:00→21:11)
[2021-04-06] MEDS ORDERED: CHOLECALCIFEROL (VITAMIN D3) 50,000 UNIT CAPSULE PO SCH (09:00)
[2021-04-06] MEDS: GABAPENTIN 100 MG CAPSULE. PO SCH (09:21)
[2021-04-06] MEDS: BUDESONIDE 0.5 MG/2 ML NEBU NEB SCH ×2 (09:21→21:11)
[2021-04-06] MEDS: OMEGA-3 FATTY ACIDS/FISH OIL 1,000 MG CAPSULE. PO SCH (09:21)
[2021-04-06] MEDS: APIXABAN 5 MG TABLET. PO SCH ×2 (09:22→21:08)
[2021-04-06] MEDS: ASCORBIC ACID 1,000 MG TABLET PO SCH (09:23)
[2021-04-06] MEDS: CHOLECALCIFEROL (VITAMIN D3) 1,000 UNIT TABLET PO SCH (09:23)
[2021-04-06] MEDS: OSELTAMIVIR 75 MG CAPSULE PO SCH ×2 (09:23→21:07)
[2021-04-06] MEDS: FAMOTIDINE 20 MG TABLET PO SCH (09:23)
[2021-04-06] MEDS: ALLOPURINOL 100 MG TABLET. PO SCH (09:24)
[2021-04-06] MEDS: AZITHROMYCIN 250 MG TABLET. PO SCH (09:25)
[2021-04-06] MEDS: LACTOBACILLUS RHAMNOSUS GG 1 CAPSULE. PO SCH ×2 (09:25→21:07)
[2021-04-06] MEDS: ZINC SULFATE 220 MG CAPSULE. PO SCH (09:25)
[2021-04-06] MEDS: METOPROLOL TART IMMED RELEASE 50 MG TABLET PO SCH ×2 (10:15→21:08)
[2021-04-06] MEDS: LOSARTAN 50 MG TABLET. PO SCH (10:16)
[2021-04-06] MEDS: hydrALAZINE 25 MG TABLET PO SCH ×2 (10:17→21:11)
[2021-04-06 11:00] VITALS: BP 125/71
[2021-04-06] MEDS: cycloSPORINE 0.05% OPTH 1 DROP DROPERETTE OU SCH ×2 (12:30→21:08)
[2021-04-06] MEDS ORDERED: NITROGLYCERIN SUBLINGUAL 0.4 MG BOTTLE OF 25. SL PRN (13:00)
--- NOTE | 2021-04-06 16:04 | NUR ---
Nursing Shift Note: Patient alert and oriented x 4, cooperative, mildly anxious about her at home. Vital signs stable, oxygen saturation 97 % at 1 LPM of oxygen supplement. Patient ambulates to bathroom by herself despite being advised to call for help. Will continue to monitor.
[2021-04-06 17:19] VITALS: BP 102/57
--- NOTE | 2021-04-06 18:55 | HP ---
DATE OF SERVICE: 04/06/2021 ADMIT DATE: 04/05/2021 HISTORY OF PRESENT ILLNESS: The patient is a 70-year-old female who came in with increased shortness of breath, body ache. The patient had no vaccinations; however, was seen in the Emergency Room, had some runs of AFib, which was new for her as well as her shortness of breath. The patient's oxygen saturation initially went down to about 90%, had to be placed on oxygen for that. She ran a temperature of 100.5 and her pulse rate was up as high as 151. As a result of the elevated temperature and the AFib with rapid ventricular response, the patient was admitted to the hospital for further evaluation of her new onset of atrial fibrillation with RVR as well as she had a combination of pneumonia as well as a flu and COVID combined. PAST MEDICAL AND SURGICAL HISTORY: Extensive for extraction of the cataract of the right eye, tonsillectomy, neuropathy, on Eliquis, gastroparesis, diverticulitis, abdominal surgery, hernia repair, cervical and uterine cancer, tubal ligation, hysterectomy, renal disease, ARF, gout, carpal tunnel syndrome, orthopedic surgery, right hand carpal tunnel surgery, left rotator cuff surgery, bilateral knee replacements, back surgery, hypoglycemia, hypothyroidism, smoking, hepatitis, influenza, pneumococcal vaccinations are up to date, but the other ones were not. FAMILY HISTORY: Positive for hypertension, diabetes, lung cancer and cardiovascular disease. ALLERGIES: Allergy to NIACIN. SOCIAL HISTORY: The patient has about a 45-[id number] history of smoking, occasional hard alcohol use, but no hard drugs. The patient is a FULL CODE. REVIEW OF SYSTEMS: The patient has generalized aching and shortness of breath. Denies chest pain per se, but fluttering in her chest. The patient in turn denies any problem with her bowels or bladder. Denies any melena, hematochezia or hematemesis and neurologically intact. PHYSICAL EXAMINATION: GENERAL: This is a pleasant white female, in moderate amount of distress as noted. VITAL SIGNS: Initial blood pressure was approximately 150/98, respiratory rate 20, pulse 150 with a temperature of 100.5 with treatment has come down to 102/60, respiratory rate 18, pulse 70, afebrile, 1 liter at 96. HEENT: The patient's head was atraumatic, normocephalic. Eyes: PERRLA without jaundice. Mouth and Throat: Poor dentition. NECK: Supple with good upstroke of the carotid pulses. LUNGS: Diminished throughout, poor movement of air. CARDIOVASCULAR: Regular rhythm. ABDOMEN: Soft, nontender, no rebound or guarding. Positive bowel sounds, protuberant. EXTREMITIES: No clubbing, cyanosis, nor edema. NEUROLOGIC: The patient is alert and oriented x3. LABORATORY DATA: The patient's white count 9, hemoglobin 11 and 33. Chemistries: 138, 4.1, 32 and 1.6. Serology positive for influenza B and COVID-19. IMPRESSION: Atrial fibrillation with rapid ventricular response, pneumonia of unspecified etiology, community acquired, possible COVID-19. The patient be treated accordingly for such and controlled her atrial fibrillation. She will continue on Eliquis 5 mg b.i.d. and also continue on antibiotic therapy as well. We will make further evaluation on her as indicated. [place] DR: Essie TID: [id number]
[2021-04-06 19:00] VITALS: BP 112/65
[2021-04-06] MEDS: ATORVASTATIN CALCIUM 10 MG TABLET. PO SCH (21:08)
[2021-04-06 23:06] VITALS: BP 119/67
[2021-04-07] MEDS: DEXAMETHASONE SOD PHOS 4 MG/ML VIAL. IVP SCH ×3 (05:49→17:14)
[2021-04-07] MEDS: LEVOTHYROXINE 125 MCG TABLET PO SCH (05:51)
[2021-04-07 06:13] VITALS: BP 130/76
[2021-04-07] MEDS: BUDESONIDE 0.5 MG/2 ML NEBU NEB SCH ×2 (08:00→21:40)
[2021-04-07] MEDS: NON FORMULARY ITEM (Loteprednol Etabonate (Lotemax) 1 DROP) LEFTEYE SCH ×4 (08:19→21:00)
[2021-04-07] MEDS: CHOLECALCIFEROL (VITAMIN D3) 1,000 UNIT TABLET PO SCH (08:20)
[2021-04-07] MEDS: ALLOPURINOL 100 MG TABLET. PO SCH (08:20)
[2021-04-07] MEDS: ASCORBIC ACID 1,000 MG TABLET PO SCH (08:20)
[2021-04-07] MEDS: ZINC SULFATE 220 MG CAPSULE. PO SCH (08:20)
[2021-04-07] MEDS: GABAPENTIN 100 MG CAPSULE. PO SCH (08:20)
[2021-04-07] MEDS: OSELTAMIVIR 75 MG CAPSULE PO SCH ×2 (08:20→21:42)
[2021-04-07] MEDS: hydrALAZINE 25 MG TABLET PO SCH ×2 (08:21→21:42)
[2021-04-07] MEDS: APIXABAN 5 MG TABLET. PO SCH ×2 (08:21→21:42)
[2021-04-07] MEDS: OMEGA-3 FATTY ACIDS/FISH OIL 1,000 MG CAPSULE. PO SCH (08:21)
[2021-04-07] MEDS: AZITHROMYCIN 250 MG TABLET. PO SCH (08:21)
[2021-04-07] MEDS: LOSARTAN 50 MG TABLET. PO SCH (08:21)
[2021-04-07] MEDS: LACTOBACILLUS RHAMNOSUS GG 1 CAPSULE. PO SCH ×2 (08:21→21:40)
[2021-04-07] MEDS: cycloSPORINE 0.05% OPTH 1 DROP DROPERETTE OU SCH ×2 (08:22→21:40)
[2021-04-07] MEDS: FAMOTIDINE 20 MG TABLET PO SCH (08:22)
[2021-04-07] MEDS: METOPROLOL TART IMMED RELEASE 50 MG TABLET PO SCH ×2 (08:22→21:41)
[2021-04-07 12:04] VITALS: BP 122/77
--- NOTE | 2021-04-07 14:57 | NUR ---
PT PLANNED TO GO HOME TODAY. PT STATES SHE NEVER REALLY FELT BAD WHEN SHE CAME TO THE ED, JUST CAME BECAUSE SHE HAD A 101.0 FEVER. PT STATES THAT SHE FEELS FINE AND WAS WANTING TO GO HOME TODAY. DR. KNOWLES WANTS TO KEEP HER FOR ONE MORE DAY TO DO ANOTHER X-RAY. PT STATES SHE IS LEAVING TOMORROW WHETHER HE DISCHARGES HER OR NOT. PT STATES HER IS ALSO SICK AT HOME AND SHE NEEDS TO BE AT HOME TO TAKE CARE OF HIM. PT ON ROOM AIR. PT AWAKE MOST OF THE DAY, WATCHING THE SNOW AND ROAD CREWS. PT FRUSTRATED THAT SHE IS STILL HERE.
[2021-04-07 15:17] VITALS: BP 127/75
[2021-04-07 19:56] VITALS: BP_SYST 125; BP_DIAS 0; BP_DIAS 70
--- NOTE | 2021-04-07 20:34 | PN ---
SUBJECTIVE: A 70-year-old female with combination of flu and COVID-19. The patient's temperature is 100.5, has also had atrial fibrillation with rapid ventricular response, doing somewhat better. A chest x-ray showed consolidations. The patient is breathing a little bit easier. Oxygen saturation seems to be improving. OBJECTIVE: VITAL SIGNS: Blood pressure 122/70, respiratory rate 18, pulse 60, afebrile, room air 95. GENERAL: The patient otherwise alert and oriented. LUNGS: Diminished throughout, poor movement of air, but improved. CARDIOVASCULAR: Irregular rhythm. ABDOMEN: Markedly protuberant. EXTREMITIES: No clubbing, cyanosis or edema. NEUROLOGIC: Stable. The patient continues on IV antibiotic therapy, steroids, and antithrombolytics, will continue to be monitored carefully. IV antibiotic therapy for this individual as well as anti-flu medications. IMPRESSION: Therefore, COVID-19 pneumonia, acute respiratory failure, atrial fibrillation with rapid ventricular response, influenza B, morbid obesity. Also, chronic kidney disease. PLAN: Continue with present drug regimen and monitor for changes. [place]IM[place] DR: Essie TID: [id number]
[2021-04-07] MEDS: ATORVASTATIN CALCIUM 10 MG TABLET. PO SCH (21:40)
[2021-04-07 23:16] VITALS: BP 96/56
[2021-04-08] MEDS: DEXAMETHASONE SOD PHOS 4 MG/ML VIAL. IVP SCH ×2 (00:41→05:41)
[2021-04-08] MEDS: LEVOTHYROXINE 125 MCG TABLET PO SCH (05:41)
--- NOTE | 2021-04-08 06:16 | NUR ---
Pt slept most of the night; up to toilet independently. Pt expresses she is feeling pretty good, despite "coughing up green gunk." She is looking forward to going home. sharan
[2021-04-08 06:21] VITALS: BP 130/73
[2021-04-08] MEDS: BUDESONIDE 0.5 MG/2 ML NEBU NEB SCH (08:00)
[2021-04-08] MEDS: GABAPENTIN 100 MG CAPSULE. PO SCH (08:31)
[2021-04-08] MEDS: cycloSPORINE 0.05% OPTH 1 DROP DROPERETTE OU SCH (08:31)
[2021-04-08] MEDS: OSELTAMIVIR 75 MG CAPSULE PO SCH (08:31)
[2021-04-08] MEDS: APIXABAN 5 MG TABLET. PO SCH (08:31)
[2021-04-08] MEDS: ZINC SULFATE 220 MG CAPSULE. PO SCH (08:31)
[2021-04-08] MEDS: ALLOPURINOL 100 MG TABLET. PO SCH (08:31)
[2021-04-08] MEDS: OMEGA-3 FATTY ACIDS/FISH OIL 1,000 MG CAPSULE. PO SCH (08:31)
[2021-04-08] MEDS: LACTOBACILLUS RHAMNOSUS GG 1 CAPSULE. PO SCH (08:31)
[2021-04-08] MEDS: ASCORBIC ACID 1,000 MG TABLET PO SCH (08:32)
[2021-04-08] MEDS: CHOLECALCIFEROL (VITAMIN D3) 1,000 UNIT TABLET PO SCH (08:32)
[2021-04-08] MEDS: FAMOTIDINE 20 MG TABLET PO SCH (08:32)
[2021-04-08] MEDS: AZITHROMYCIN 250 MG TABLET. PO SCH (08:32)
[2021-04-08] MEDS: hydrALAZINE 25 MG TABLET PO SCH (09:00)
[2021-04-08] MEDS: NON FORMULARY ITEM (Loteprednol Etabonate (Lotemax) 1 DROP) LEFTEYE SCH (09:00)
[2021-04-08 10:43] VITALS: BP 109/56
--- NOTE | 2021-04-08 12:02 | RAD ---
PROCEDURE: XR CHEST 1V.04/08/2021 11:59 AM REASON FOR STUDY: Reason: COVID PNEUMONIA, FLU / Spl. Instructions: / History: . COMPARISON: Study of 04/05/2021. FINDINGS: Infiltrate persists, particularly on the right. This is probably overall similar. No new co nsolidation or pleural fluid is seen. Heart size is normal. IMPRESSION: No clear-cut change. Electronically signed by: Danish Bryant Jr., MD (04/08/2021 11:59 AM) [facility] CENTERBRenetta
[2021-04-08] MEDS ORDERED: METO50TA6 PO (12:11)
[2021-04-08] MEDS ORDERED: AZIT250T6 PO (12:11)
[2021-04-08] MEDS ORDERED: OSEL75CA PO (12:11)
[2021-04-08] MEDS ORDERED: LOSA25TA PO (12:11)
[2021-04-08] MEDS ORDERED: BUDE0.5A11 NEB (12:11)
[2021-04-08] MEDS ORDERED: PRED-220 PO (12:11)
[2021-04-08] MEDS ORDERED: CEFD300C PO (12:11)
[2021-04-08 12:43] LABS: BASO % 0 % (0-3); EOS % 0 % (0-3); HEMATOCRIT 31.2 % (36.0-47.0); HEMOGLOBIN 10.4 g/dL (12.0-15.5); LYMPH # 0.5 x10^3/uL (1.0-4.8); LYMPH % 9 % (24-48); MEAN CORPUSCULAR HEMOGLOBIN 36 pg (25-35); MEAN CORPUSCULAR HGB CONC 33 g/dL (31-37); MEAN CORPUSCULAR VOLUME 108 fL (79-100); MONO # 0.2 x10^3/uL (0.0-1.1); MONO % 4 % (0-9); NEUT # 4.9 x10^3uL (1.8-7.7); NEUT % 88 % (31-73); PLATELET COUNT 171 x10^3/uL (140-400); RED BLOOD COUNT 2.89 x10^6/uL (3.50-5.40); RED CELL DISTRIBUTION WIDTH 15.5 % (11.5-14.5); WHITE BLOOD COUNT 5.5 x10^3/uL (4.0-11.0)
[2021-04-08] MEDS ORDERED: DEXAMETHASONE SOD PHOS 4 MG/ML VIAL. IVP SCH (14:00)
--- NOTE | 2021-04-08 14:50 | NUR ---
PATIENT IS DISCHARGED HOME, DISCHARGED INSTRUCTIONS REVIEWED, PATIENT VERBALIZED UNDERSTANDING. PATIENT LEFT ROOM 103 VIA W/C ACCOMP BY SELF. PATIENT TAKEN HOME BY VIA PERSONAL VEHICLE.
[2021-04-08] MEDS ORDERED: METOPROLOL TART IMMED RELEASE 50 MG TABLET PO SCH (21:00)
[2021-04-08] MEDS ORDERED: FAMOTIDINE 20 MG TABLET PO SCH (21:00)
[2021-04-09] MEDS ORDERED: LOSARTAN 25 MG TABLET. PO SCH (09:00)
[2021-04-10 03:07] LABS: HEMOGLOBIN A1C 5.7 % (4.8-5.6)
== END 2021-04-08 14:50 | disposition home or self-care (01) | DRG 177 ==
LOC: ER 14:16 → ER HOLD 17:55 → 1 SOUTH 19:25
PROVIDERS: ADMIT Family Medicine; ATTEND Family Medicine
DX: U07.1 COVID-19 (principal); J10.08 Influenza due to other identified influenza virus with other specified pneumonia; J12.82 Pneumonia due to coronavirus disease 2019; J96.00 Acute respiratory failure, unspecified whether with hypoxia or hypercapnia; Z68.43 Body mass index [BMI] 50.0-59.9, adult; I48.20 Chronic atrial fibrillation, unspecified; E03.9 Hypothyroidism, unspecified; E11.22 Type 2 diabetes mellitus with diabetic chronic kidney disease; E11.43 Type 2 diabetes mellitus with diabetic autonomic (poly)neuropathy; E66.01 Morbid (severe) obesity due to excess calories; I12.9 Hypertensive chronic kidney disease with stage 1 through stage 4 chronic kidney disease, or unspecified chronic kidney disease; K31.84 Gastroparesis; N18.9 Chronic kidney disease, unspecified; Z79.01 Long term (current) use of anticoagulants; Z80.1 Family history of malignant neoplasm of trachea, bronchus and lung; Z82.49 Family history of ischemic heart disease and other diseases of the circulatory system; Z83.3 Family history of diabetes mellitus; Z85.42 Personal history of malignant neoplasm of other parts of uterus; Z87.891 Personal history of nicotine dependence; Z90.710 Acquired absence of both cervix and uterus; Z96.653 Presence of artificial knee joint, bilateral; Z88.8 Allergy status to other drugs, medicaments and biological substances
CPT/HCPCS: 36415; 71045; 71275; 80053; 83036; 84484; 85025; 87428; 93005; 94640; 96361; 96365; 96375; J0696; J1100; J3490; Q9967; 99285-25; J7030

== ENCOUNTER 2021-04-15 08:00 | Inpatient (IN) | payer MEDICAID ==
[~2021-04-15] VITALS: Ht 157.5 cm; Wt 118.1 kg
[~2021-04-15 08:00] MED LIST changes: +AZIT250T6 PO; +BUDE0.5A11 NEB; +CEFD300C PO; +CHOL400T36 PO; +LOSA100T14 PO; +LOSA25TA PO; +METO100T7 PO; +OMEG-152 PO; +PRED-220 PO
[2021-04-15 09:00] LABS: BASO # 0.1 x10^3/uL (0.0-0.2); BASO % 1 % (0-3); EOS % 0 % (0-3); HEMATOCRIT 35.6 % (36.0-47.0); HEMOGLOBIN 11.9 g/dL (12.0-15.5); LYMPH # 0.4 x10^3/uL (1.0-4.8); LYMPH % 4 % (24-48); MEAN CORPUSCULAR HEMOGLOBIN 35 pg (25-35); MEAN CORPUSCULAR HGB CONC 34 g/dL (31-37); MEAN CORPUSCULAR VOLUME 106 fL (79-100); MONO # 0.8 x10^3/uL (0.0-1.1); MONO % 8 % (0-9); NEUT # 8.5 x10^3uL (1.8-7.7); NEUT % 87 % (31-73); PLATELET COUNT 186 x10^3/uL (140-400); RED BLOOD COUNT 3.37 x10^6/uL (3.50-5.40); RED CELL DISTRIBUTION WIDTH 15.3 % (11.5-14.5); WHITE BLOOD COUNT 9.8 x10^3/uL (4.0-11.0)
--- NOTE | 2021-04-15 09:02 | PHYS DOC ---
Past History Past Medical History: A-Fib, Diabetes, Hypertension, Hypothyroid Additional Past Medical Histor: neuropathy, gastroparesis (DELORIS VELASQUEZ DO) Past Surgical History: Other (DELORIS VELASQUEZ DO) Smoking: Non-smoker Alcohol Use: None Drug Use: None (DELORIS VELASQUEZ DO) General Adult EDM: Chief Complaint: FATIGUE HPI: HPI: 70-year-old female presents emergency room with shortness of breath, fatigue, and fever at home. She was diagnosed COVID and influenza +10 days ago. She states over the last couple of days she feels like she is worse. She does not normally use oxygen therapy. She denies chest pain. No fever on arrival. (DELORIS VELASQUEZ DO) Review of Systems: Review of Systems: Constitutional: Fever, chills, body aches, fatigue. Eyes: Denies change in visual acuity HENT: Denies nasal congestion or sore throat Respiratory: Cough with shortness of breath Cardiovascular: Denies chest pain or edema GI: Denies abdominal pain, nausea, vomiting, bloody stools or diarrhea : Denies dysuria Musculoskeletal: Denies back pain or joint pain Integument: Denies rash Neurologic: Denies headache, focal weakness or sensory changes Endocrine: Denies polyuria or polydipsia Lymphatic: Denies swollen glands Psychiatric: Denies depression or anxiety (DELORIS VELASQUEZ DO) Allergies: Allergies: Allergies Coded Allergies Type Severity Reaction Last Updated Verified niacin Allergy Intermediate 03/05/21 Yes (DELORIS VELASQUEZ DO) Physical Exam: PE: Constitutional: Well developed, well nourished, no acute distress, non-toxic appearance. [] HENT: Normocephalic, atraumatic, bilateral external ears normal, oropharynx moist, no oral exudates, nose normal. [] Eyes: PERRLA, EOMI, conjunctiva normal, no discharge. [] Neck: Normal range of motion, no tenderness, supple, no stridor. [] Cardiovascular: Heart rate regular rhythm, no murmur [] Lungs & Thorax: Bilateral breath sounds diminished [] Abdomen: Bowel sounds normal, soft, no tenderness, no masses, no pulsatile masses. [] Skin: Warm, dry, no erythema, no rash. [] Back: No tenderness, no CVA tenderness. [] Extremities: No tenderness, no cyanosis, no clubbing, ROM intact, no edema. [] Neurologic: Alert and oriented X 3, normal motor function, normal sensory function, no focal deficits noted. [] Psychologic: Affect normal, judgement normal, mood normal. [] (DELORIS VELASQUEZ DO) EKG: EKG: Sinus rhythm, rate 107, normal axis, no ST elevation or depression. [] (DELORIS VELASQUEZ DO) Radiology/Procedures: Radiology/Procedures: [] (DELORIS VELASQUEZ DO) Heart Score: C/O Chest Pain: N/A Risk Factors: Risk Factors: DM, Current or recent (<one month) smoker, HTN, HLP, family history of CAD, obesity. Risk Scores: Score 0 - 3: 2.5% MACE over next 6 weeks - Discharge Home Score 4 - 6: 20.3% MACE over next 6 weeks - Admit for Clinical Observation Score 7 - 10: 72.7% MACE over next 6 weeks - Early Invasive Strategies (DELORIS VELASQUEZ DO) Course & Med Decision Making: Course & Med Decision Making Pertinent Labs and Imaging studies reviewed. (See chart for details) Patient's labs are significant for an elevated creatinine and BUN. She appears clinically dry we have given her fluids. Her CBC is remarkable for mild anemia. Her troponin is mildly elevated. We will trend these. The patient's chest x- ray is significant for COVID-19 pneumonia. The patient is requiring supplemental oxygen. Treated her with Decadron, Lovenox, Rocephin, and azithromycin. I spoke with Dr. Albright and he has agreed to admit the patient. Prior to going to the hospital floor, the patient started to have elevated heart rate. A repeat EKG showed atrial fibrillation. I gave her 5 mg of metoprolol IV. She continued to have elevated heart rate. I gave her 20 of Cardizem and this improved her heart rate to the 70s. Her heart rate really accelerated and so a Cardizem drip was started. The patient is now a hold in the emergency room as they cannot take a Cardizem drip on the floor and we do not have any ICU beds available. 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 [] (DELORIS VELASQUEZ DO) Course & Med Decision Making I assumed care of patient after comprehensive signout from off going physician. Patient rate controlled with ongoing Cardizem drip. I started restarted patient's home Eliquis for anticoagulation purposes Stable overnight 04/15/2021. A. fib with RVR likely due to pulmonary infection. Patient was able to be transitioned off of Cardizem drip and restarted on metoprolol twice daily p.o. for rate control with plans for admission (GINA CARDONA DO) Dragon Disclaimer: Dragon Disclaimer: This electronic medical record was generated, in whole or in part, using a voice recognition dictation system. (DELORIS VELASQUEZ DO) Departure Departure: Impression: Primary Impression: Pneumonia due to COVID-19 virus Additional Impression: Atrial fibrillation Disposition: ADMITTED INPATIENT Admitting Physician: Blue Knowles (DELORIS VELASQUEZ DO) Admitting Physician: Blue Knowles (GINA CARDONA DO) Condition: STABLE Referrals: BLUE KNOWLES MD (PCP) DELORIS VELASQUEZ DO Apr 15, 2021 09:02 GINA CARDONA DO Apr 15, 2021 19:07
[2021-04-15 09:09] LABS: CALCIUM 8.3 mg/dL (8.5-10.1); CREATININE 1.7 mg/dL (0.6-1.0); GFR 29.6
--- NOTE | 2021-04-15 09:10 | RAD ---
Exam performed: One view chest HISTORY: Shortness of breath. DATE OF SERVICE: 04/15/2021. COMPARISON: Single view chest from 04/08/2021. Single AP upright portable view chest findings: There is interval development of diffuse bilateral pulmonary infiltrates throughout both lungs. There is no pleural effusion or pneumothorax. Degenerative changes involving bilateral acromioclavicular j oints. IMPRESSION: Development of diffuse bilateral pulmonary infiltrates. Electronically signed by: Dixie Snow MD (04/15/2021 9:08 AM) [facility] SOUTHBlake
[2021-04-15 09:15] LABS: ALBUMIN 2.1 g/dL (3.4-5.0); ALBUMIN/GLOBULIN RATIO 0.4 (1.0-1.7); TOTAL BILIRUBIN 1.7 mg/dL (0.2-1.0); TOTAL PROTEIN 7.3 g/dL (6.4-8.2)
[2021-04-15] MEDS ORDERED: AZITHROMYCIN 250 MG TABLET. PO ONE (09:15)
[2021-04-15] MEDS ORDERED: ACETAMINOPHEN 325 MG TABLET PO PRN (09:15)
[2021-04-15] MEDS ORDERED: ONDANSETRON PF 4 MG/2 ML VIAL. IVP PRN (09:15)
[2021-04-15] MEDS ORDERED: ENOXAPARIN ** NOTE DOSE ** SYRINGE SQ ONE (09:30)
[2021-04-15] MEDS ORDERED: IV NORMAL SALINE 50ML 50 ML ONE (09:34)
[2021-04-15] MEDS ORDERED: cefTRIAXone SODIUM 1 GM VIAL ONE (09:34)
[2021-04-15] MEDS ORDERED: DEXAMETHASONE SOD PHOS 10 MG/ML VIAL. IVP ONE (09:45)
--- NOTE | 2021-04-15 10:21 | EKG ---
[address] [address] Test Date: 2021-04-15 Test Time: 08:55:26 Pat Name: JOHN GOODSON Department: Room: Gender: F Director Of Rehabilitative Services: LYNDON : 1950 Requested By: DELORIS VELASQUEZ Order Number: [id number] Reading MD: Home Robledo MD Measurements Intervals [place] Rate: 107 P: -4 IN: 144 QRS: 52 QRSD: 84 T: 56 QT: 352 QTc: 476 Interpretive Statements SINUS TACHYCARDIA ATRIAL PREMATURE COMPLEX(ES) Electronically Signed On 04-16-2021 9:14:34 PRODUCT TEST ENGINEER by Home Robledo MD
[2021-04-15] MEDS ORDERED: LIDOCAINE 2% TOPICAL JELLY 5GM TUBE. TP ONE (11:15)
[2021-04-15] MEDS ORDERED: METOPROLOL TARTRATE 5 MG/5 ML VIAL. IV ONE (12:00)
[2021-04-15] MEDS ORDERED: METOPROLOL TARTRATE 5 MG/5 ML VIAL. ONE (12:02)
[2021-04-15] MEDS ORDERED: dilTIAZem 25 MG/5 ML VIAL IVP ONE (12:30)
[2021-04-15] MEDS ORDERED: dilTIAZem VIAL 125 MG in IV NORMAL SALINE 100ML 100 ML IV PRN (13:15)
[2021-04-15] MEDS ORDERED: IV NORMAL SALINE 1,000ML 1,000 ML IV ONE (14:15)
[2021-04-15] MEDS ORDERED: ENOXAPARIN ** NOTE DOSE ** SYRINGE SQ SCH (21:00)
[2021-04-15] MEDS ORDERED: AZITHROMYCIN 250 MG in IV NORMAL SALINE 250ML 250 ML IV SCH (22:15)
[2021-04-15] MEDS ORDERED: NITROGLYCERIN SUBLINGUAL 0.4 MG BOTTLE OF 25. SL PRN (22:15)
[2021-04-15] MEDS ORDERED: ENOXAPARIN 40 MG/0.4 ML SYRINGE. SQ SCH (22:15)
[2021-04-15] MEDS: APIXABAN 5 MG TABLET. PO SCH (23:00)
[2021-04-16] VITALS (13 sets, daily range): BP systolic 102–127; BP diastolic 48–62
[2021-04-16] MEDS ORDERED: DEXAMETHASONE SOD PHOS 10 MG/ML VIAL. IV SCH
[2021-04-16] MEDS: HYDROcodone/APAP 5/325MG 1 TAB TABLET PO PRN ×2 (01:57→14:32)
--- NOTE | 2021-04-16 05:46 | NUR ---
asked by nursing to let her continue to sleep.
--- NOTE | 2021-04-16 06:54 | RAD ---
XR CHEST 1V Clinical Indication: Reason: cough, short of air / Comparison: AP chest, prior day. Findings: The cardiomediastinal silhouette is stable. Moderate bilateral patchy airspace opacities are unchange d. There is no pneumothorax. No pleural effusion is appreciated. Arthropathy of the bilateral shoulde rs. IMPRESSION: Moderate bilateral patchy airspace opacities are unchanged. Electronically signed by: James Irving MD (04/16/2021 6:51 AM) [facility]PITALDORITA
[2021-04-16] MEDS ORDERED: METOPROLOL TART IMMED RELEASE 25 MG TABLET. ONE (07:03)
[2021-04-16] MEDS: METOPROLOL TART IMMED RELEASE 25 MG TABLET. PO SCH ×2 (07:16→21:00)
[2021-04-16] MEDS ORDERED: BUDESONIDE 0.5 MG/2 ML NEBU NEB SCH (08:00)
[2021-04-16] MEDS ORDERED: IPRATRPIUM/ALBUTEROL 0.5/2.5MG 3 ML NEBU. NEB SCH (08:00)
[2021-04-16 08:10] LABS: BASO % 0 % (0-3); EOS % 0 % (0-3); HEMATOCRIT 37.7 % (36.0-47.0); HEMOGLOBIN 12.2 g/dL (12.0-15.5); LYMPH # 0.4 x10^3/uL (1.0-4.8); LYMPH % 4 % (24-48); MEAN CORPUSCULAR HEMOGLOBIN 35 pg (25-35); MEAN CORPUSCULAR HGB CONC 32 g/dL (31-37); MEAN CORPUSCULAR VOLUME 108 fL (79-100); MONO # 0.4 x10^3/uL (0.0-1.1); MONO % 5 % (0-9); NEUT # 7.6 x10^3uL (1.8-7.7); NEUT % 91 % (31-73); PLATELET COUNT 168 x10^3/uL (140-400); RED BLOOD COUNT 3.49 x10^6/uL (3.50-5.40); RED CELL DISTRIBUTION WIDTH 15.8 % (11.5-14.5); WHITE BLOOD COUNT 8.4 x10^3/uL (4.0-11.0)
[2021-04-16 08:21] LABS: ALBUMIN 1.7 g/dL (3.4-5.0); ALBUMIN/GLOBULIN RATIO 0.3 (1.0-1.7); CALCIUM 7.9 mg/dL (8.5-10.1); CREATININE 1.5 mg/dL (0.6-1.0); GFR 34.2; POTASSIUM 3.5 mmol/L (3.5-5.1); TOTAL BILIRUBIN 0.6 mg/dL (0.2-1.0); TOTAL PROTEIN 6.6 g/dL (6.4-8.2)
[2021-04-16] MEDS ORDERED: IV NORMAL SALINE 50ML 50 ML ONE (08:52)
[2021-04-16] MEDS ORDERED: cefTRIAXone SODIUM 1 GM VIAL ONE (08:52)
[2021-04-16] MEDS ORDERED: DEXAMETHASONE SOD PHOS 10 MG/ML VIAL. IVP SCH (09:00)
[2021-04-16] MEDS: NON FORMULARY ITEM (Loteprednol Etabonate (Lotemax) 1 DROP) LEFTEYE SCH ×4 (09:00→20:52)
[2021-04-16] MEDS ORDERED: CHOLECALCIFEROL (VITAMIN D3) 1,000 UNIT TABLET PO SCH (09:00)
[2021-04-16] MEDS ORDERED: hydrALAZINE 25 MG TABLET PO SCH (09:00)
[2021-04-16] MEDS ORDERED: OSELTAMIVIR 30 MG CAPSULE PO SCH (09:00)
[2021-04-16] MEDS ORDERED: METOPROLOL TART IMMED RELEASE 50 MG TABLET PO SCH (09:00)
[2021-04-16] MEDS ORDERED: NON FORMULARY ITEM (Apixaban (Eliquis) 5 MG) PO SCH (09:00)
[2021-04-16] MEDS ORDERED: METOPROLOL TARTRATE PO SCH (09:00)
[2021-04-16] MEDS: DEXAMETHASONE SOD PHOS 10 MG/ML VIAL. IV SCH ×3 (09:02→20:29)
[2021-04-16] MEDS: cycloSPORINE 0.05% OPTH 1 DROP DROPERETTE OU SCH ×2 (09:10→22:09)
[2021-04-16] MEDS: APIXABAN 5 MG TABLET. PO SCH ×2 (09:11→20:29)
[2021-04-16] MEDS: LEVOTHYROXINE 125 MCG TABLET PO SCH (09:11)
[2021-04-16] MEDS: GABAPENTIN 300 MG CAPSULE. PO SCH (09:15)
[2021-04-16] MEDS: LOSARTAN 25 MG TABLET. PO SCH (09:16)
[2021-04-16] MEDS: OMEGA-3 FATTY ACIDS/FISH OIL 1,000 MG CAPSULE. PO SCH (09:17)
[2021-04-16] MEDS: LACTOBACILLUS RHAMNOSUS GG 1 CAPSULE. PO SCH (09:17)
[2021-04-16] MEDS: AZITHROMYCIN 250 MG TABLET. PO SCH (09:17)
[2021-04-16] MEDS: FAMOTIDINE 20 MG TABLET PO SCH (09:17)
[2021-04-16] MEDS: ALLOPURINOL 100 MG TABLET. PO SCH (09:19)
[2021-04-16] MEDS ORDERED: DIGOXIN IV 500 MCG/2 ML AMPUL. IV ONE ×2 (14:30→19:15)
[2021-04-16 15:33] LABS: BGAS PH 7.43 (7.35-7.45)
[2021-04-16] MEDS: IPRATROPIUM/ALBUTEROL 20/100mcg/INH INHALER. INH SCH ×2 (16:00→20:00)
--- NOTE | 2021-04-16 17:59 | NUR ---
ADMISSION NOTE PT ARRIVED VIA EMS ON 5L NASAL CANNULA, A&OX4, sPO2 OF 84% AND HEART RATE OF 125. PT DENIED ANY PAIN OR DISCOMFORT. BELONGINGS IN HAND. TELE APPLIED. ASSESSMENT DONE. FLUIDS STARTED.
[2021-04-16] MEDS: ACYCLOVIR 200 MG CAPSULE PO SCH ×2 (18:00→22:09)
--- NOTE | 2021-04-16 18:01 | NUR ---
NURSE NOTE PATIENT HEART RATE INCREASINGLY CLIMBED PERIODICALLY THROUGHOUT SHIFT FROM 120-168. PT IS SOB INTERMITTENTLY AND LABORED WITH BREATHS. THIS RN CONTACTED [facility]SON AND GAVE DIGOXIN PER MD ORDER. PT HR IMPROVED TO 90-100 FOR ABOUT AN HOUR. PT TACHYCARDIC AGAIN WITH HR IS 150'S. CARDIOLOGY CONSULTED AND GAVE ORDER FOR CARDIZEM DRIP. PT WILL BE MOVING TO ICU. PT DENIES ANY PAIN OR DISCOMFORT AND STATES SHE IS JUST TIRED. SHE IS A&OX4 AND UP TO 92% ON 5L NASAL CANNULA.
[2021-04-16] MEDS ORDERED: dilTIAZem VIAL 125 MG in IV NORMAL SALINE 100ML 100 ML IV PRN (19:00)
[2021-04-16 20:11] LABS: BILIRUBIN,URINE NEG (NEG); CLARITY,URINE CLEAR; COLOR,URINE YELLOW; GLUCOSE,URINE 100 mg/dL (NEG); NITRITE,URINE NEG (NEG); RBC,URINE 0 /HPF (0-2); UROBILINOGEN,URINE 0.2 mg/dL (0.2 mg/dL); WBC,URINE 0 /HPF (0-4)
[2021-04-16 20:12] LABS: BACTERIA,URINE 0 /HPF (0-FEW); SQUAMOUS EPITHELIAL CELL,UR OCC /LPF
[2021-04-16] MEDS: ATORVASTATIN CALCIUM 10 MG TABLET. PO SCH (20:29)
[2021-04-16] MEDS: CHOLECALCIFEROL (VITAMIN D3) 1,000 UNIT TABLET PO SCH (20:29)
--- NOTE | 2021-04-16 22:04 | NUR ---
Pt was moved to ICU at shift change. Barrera was placed and cardizem gtt started. Pt is very concerned and scared. Reassured pt that she is going to be monitored all night long and this nurse can see all of her vital signs. Pt seemed relieved.
--- NOTE | 2021-04-16 23:54 | HP ---
DATE OF SERVICE: 04/16/2021 ADMIT DATE: 04/15/2021 HISTORY OF PRESENT ILLNESS: A 70-year-old female who for last week has been ill with shortness of breath, coughing, fever, chills and achiness. The patient came in and she had been diagnosed with COVID and influenza 10 days ago, but it got increasingly worse to the point where she needed oxygen and became tachycardic with heart rates upwards of 150. As a result of the combination of hypoxia, acute respiratory distress of course as well as sinus tachycardia, the patient was admitted to the hospital with her pneumonic processes as well to receive IV antibiotic therapy as well as further evaluation by Cardiology and the like. PAST MEDICAL HISTORY: Extraction of the cataract of the right eye, tonsillectomy, peripheral neuropathy. Coronary artery disease, anticoagulant Eliquis. Chronic atrial fibrillation, nausea, vomiting, diverticulosis, diverticulitis, abdominal surgery, hernia repair, GERD, uterine cancer, tubal ligation, hysterectomy, renal disease, ARF, LIDA, musculoskeletal disease, severe degenerative arthritis of the knees, gout, carpal tunnel syndrome of the right hand. Orthopedic surgery, right hand as well as left rotator cuff as well as bilateral knee replacement. Hypoglycemia, hypothyroidism, hepatitis, pneumococcal vaccination, recent acute infection, cellulitis. FAMILY HISTORY: Positive for hypertension, diabetes, lung cancer, atrial fibrillation, stroke and CVA as noted and coronary artery disease. ALLERGIES: NIACIN HOME MEDICATIONS: Include cefdinir 300 mg a day, Zithromax 200, Tamiflu 75 b.i.d., Lipitor, omega 3, hydralazine 25 b.i.d., nitroglycerin, metoprolol 100 mg p.o. b.i.d., losartan potassium 25 daily, Blair 5/325, budesonide, Lotemax for the affected left eye, cyclosporine, Restasis to both eyes b.i.d. and famotidine 20 mg b.i.d. Also levothyroxine 125 mcg, prednisone 10 mg, allopurinol 100 mg. SOCIAL HISTORY: The patient has a distant history of smoking. Denies alcohol or drug use. She is a full code. REVIEW OF SYSTEMS: Generalized achiness. She also has fever blisters around her lip as well as shortness of breath. Denies chest pain, abdominal pain. Has some nausea, but no vomiting. Denies any melena, hematochezia or hematemesis and neurologically stable. PHYSICAL EXAMINATION: GENERAL: Ill appearing white female, in moderate amount of distress. VITAL SIGNS: Blood pressure initially 144/100, respiratory rate 31, pulse 150, and oxygen saturation needing additional oxygen with 4 liters at 97, afebrile. HEENT: Otherwise head atraumatic, normocephalic. Eyes, PERRL. Mouth and throat show poor dentition. NECK: Supple. LUNGS: Diminished with ____ crackles in the bases. CARDIOVASCULAR: ____ rhythm. ABDOMEN: Protuberant, soft, diffuse tenderness. No rebounding, no guarding. Positive bowel sounds, no hepatosplenomegaly was noted. EXTREMITIES: No clubbing, cyanosis. Trace edema noted, severe degenerative arthritis noted throughout. LABORATORY DATA: Sodium and potassium 139 and 3.9; BUN and creatinine 32 and 1.7, came down to 40 and 1.5; glucose 163. Liver enzymes stable. Chest x-ray shows consolidation or infiltrative processes in the bases. IMPRESSION: COVID-19 pneumonia; acute respiratory failure; chronic kidney disease; influenza B; essential hypertension; premature atrial contractions with sinus tachycardia, rate up to 150; hypoxia; morbid obesity; severe protein malnutrition with albumin of 1.7; type 2 diabetes as indicated above. The patient continues on IV antibiotic therapy, fluids, monitoring her sugars and make further evaluation on the multiplicity of medical problems and Cardiology has been consulted. OANH/ARGELIA/MILLY DR: OANH/arnulfo TID: [id number]
[2021-04-17] VITALS (24 sets, daily range): BP systolic 97–179; BP diastolic 38–80
[2021-04-17] MEDS: DEXAMETHASONE SOD PHOS 10 MG/ML VIAL. IV SCH ×4 (03:08→21:32)
[2021-04-17] MEDS: LEVOTHYROXINE 125 MCG TABLET PO SCH (05:35)
[2021-04-17] MEDS: ACYCLOVIR 200 MG CAPSULE PO SCH ×5 (05:35→21:30)
--- NOTE | 2021-04-17 06:32 | NUR ---
Pt slept on and off during the night. When pt is sleeping her oxygen sats are 92-95 on 5 liters; however, when patient is awake pt desats to 87 and placed pt on 7 liters hfnc. Pt's heart rate sustained under 100 bpm after cardizem drip started.
--- NOTE | 2021-04-17 07:47 | PDOC2 ---
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 Martinez SOURCE Source: Chart review, Patient HPI History of Present Illness This is a 70 yo female who presented secondary to shortness of breath, weakness/fatigue, and fevers. Tested positive for COVID and Influenza 10 days ago. Required brief inpatient hospitalization. Was discharged home on 04/08/21. Reports feeling weak since discharge. This worsening in the last couple of days. Had fall at home. Grandson called EMS. Was noted with AFIB with RVR upon arrival. She denies any chest pain, dizziness, diaphoresis, or nausea/vomiting. PAST MEDICAL HISTORY Cardiovascular: AFIB, CAD (prior cath with 65% LAD stenosis), HTN, hyperipidemia Pulmonary: Pulmonary embolus CENTRAL NERVOUS SYSTEM: Periperal neuropathy, TIA Heme/Onc: Cancer (uterine ) Musculoskeletal: Osteoarthritis, Other (DJD) Rheumatologic: Gout Endocrine: Diabetes, Hypothyroidism PAST SURGICAL HISTORY Past Surgical History: Cataract Removal, Total knee replacement (bilateral ), Tubal Ligation, Hysterectomy FAMILY HISTORY Family History: Diabetes, Hypertension, Stroke SOCIAL HISTORY Smoke: Quit ALCOHOL: none Drugs: None Lives: Alone CURRENT MEDICATIONS Current Medications Current Medications Dexamethasone Sodium Phosphate (Decadron) 6 mg 1X ONCE IVP Last administered on 04/15/21at 09:47; Start 04/15/21 at 09:45; Stop 04/15/21 at 09:46; Status DC Azithromycin (Zithromax) 500 mg 1X ONCE PO Last administered on 04/15/21at 09:43; Start 04/15/21 at 09:15; Stop 04/15/21 at 09:32; Status DC Ceftriaxone Sodium 1 gm/ Sodium Chloride 50 ml @ 100 mls/hr 1X ONCE IV Last administered on 04/15/21at 09:45; Start 04/15/21 at 09:15; Stop 04/15/21 at 09:44; Status DC Ondansetron HCl (Zofran) 4 mg PRN Q4HRS PRN IVP NAUSEA/VOMITING; Start 04/15/21 at 09:15; Stop 04/16/21 at 09:14; Status DC Acetaminophen (Tylenol) 650 mg PRN Q4HRS PRN PO FEVER > 100.3'F Last administered on 04/15/21at 09:43; Start 04/15/21 at 09:15; Stop 04/16/21 at 0 9:14; Status DC Enoxaparin Sodium (Lovenox 60mg Syringe) 60 mg BID SQ ; Start 04/15/21 at 21:00; Stop 04/15/21 at 11:56; Status DC Enoxaparin Sodium (Lovenox 60mg Syringe) 60 mg 1X ONCE SQ Last administered on 04/15/21at 09:45; Start 04/15/21 at 09:30; Stop 04/15/21 at 09:32; Status DC Sodium Chloride 50 ml @ As Directed STK-MED ONCE .ROUTE ; Start 04/15/21 at 09:34; Stop 04/15/21 at 09:34; Status DC Ceftriaxone Sodium (Rocephin) 1 gm STK-MED ONCE .ROUTE ; Start 04/15/21 at 09:34; Stop 04/15/21 at 09:34; Status DC Fentanyl Citrate (Fentanyl 2ml Vial) 50 mcg 1X ONCE IVP Last administered on 04/15/21at 12:08; Start 04/15/21 at 10:45; Stop 04/15/21 at 10:46; Status DC Lidocaine HCl (Xylocaine 2% Topical 5gm Tube) 1 ted 1X ONCE TP Last administered on 04/15/21at 12:06; Start 04/15/21 at 11:15; Stop 04/15/21 at 11:17; Status DC Dexamethasone Sodium Phosphate (Decadron) 6 mg DAILY IVP ; Start 04/16/21 at 09:00; Stop 04/15/21 at 23:01; Status DC Metoprolol Tartrate (Lopressor Vial) 5 mg 1X ONCE IV Last administered on 04/15/21at 12:07; Start 04/15/21 at 12:00; Stop 04/15/21 at 12:02; Status DC Metoprolol Tartrate (Lopressor Vial) 5 mg STK-MED ONCE .ROUTE ; Start 04/15/21 at 12:02; Stop 04/15/21 at 12:02; Status DC Diltiazem HCl (Cardizem Iv Push) 20 mg 1X ONCE IVP Last administered on 04/15/21at 12:41; Start 04/15/21 at 12:30; Stop 04/15/21 at 12:31; Status DC Diltiazem HCl 125 mg/Sodium Chloride 125 ml @ 5 mls/hr CONT PRN IV PER PROTOCOL Last administered on 04/15/21at 14:18; Start 04/15/21 at 13:15; Stop 04/16/21 at 18:51; Status DC Sodium Chloride 1,000 ml @ 1,000 mls/hr 1X ONCE IV Last administered on 04/15/21at 14:27; Start 04/15/21 at 14:15; Stop 04/15/21 at 15:14; Status DC Apixaban (Eliquis) 5 mg BID PO Last administered on 04/16/21at 20:29; Start 04/15/21 at 21:00 Allopurinol (Zyloprim) 100 mg DAILY PO Last administered on 04/16/21at 09:19; Start 04/16/21 at 09:00 Atorvastatin Calcium (Lipitor) 10 mg HS PO Last administered on 04/16/21at 20:29; Start 04/16/21 at 21:00 Azithromycin (Zithromax) 250 mg DAILY PO Last administered on 04/16/21at 09:17; Start 04/16/21 at 09:00 Budesonide (Pulmicort) 0.5 mg RTBID NEB ; Start 04/16/21 at 08:00; Stop 04/16/21 at 13:01; Status DC Cyclosporine (Restasis) 1 drop BID OU Last administered on 04/16/21at 22:09; Start 04/16/21 at 09:00 Famotidine (Pepcid) 20 mg DAILY PO Last administered on 04/16/21at 09:17; Start 04/16/21 at 09:00 Gabapentin (Neurontin) 300 mg DAILY PO Last administered on 04/16/21at 09:15; Start 04/16/21 at 09:00 Hydralazine HCl (Apresoline) 25 mg BID PO ; Start 04/16/21 at 09:00; Stop 04/16/21 at 09:15; Status DC Acetaminophen/ Hydrocodone Bitart (Lortab 5/325) 1 tab PRN Q6HRS PRN PO PAIN MODERATE/SEVERE Last administered on 04/16/21at 14:32; Start 04/15/21 at 22:15 Levothyroxine Sodium (Synthroid) 125 mcg DAILY06 PO Last administered on 04/17/21at 05:35; Start 04/16/21 at 09:00 Losartan Potassium (Cozaar) 25 mg DAILY PO Last administered on 04/16/21at 09:16; Start 04/16/21 at 09:00 Metoprolol Tartrate (Lopressor) 50 mg BID PO ; Start 04/16/21 at 09:00; Stop 04/16/21 at 04:28; Status DC Nitroglycerin (Nitrostat) 0.4 mg PRN Q5MIN PRN SL CHEST PAIN; Start 04/15/21 at 22:15 Oseltamivir Phosphate (Tamiflu) 30 mg BID PO Last administered on 04/16/21at 09:18; Start 04/16/21 at 09:00; Stop 04/16/21 at 20:52; Status DC Non-Formulary Medication (Apixaban (Eliquis)) 5 mg BID PO ; Start 04/16/21 at 09:00; Status UNV Vitamin D (Vitamin D3) 1,000 unit DAILY PO ; Start 04/16/21 at 09:00; Stop 04/16/21 at 09:16; Status DC Lactobacillus Rhamnosus (Culturelle) 1 cap DAILY PO Last administered on 04/16/21at 09:17; Start 04/16/21 at 09:00 Non-Formulary Medication (Loteprednol Etabonate (Lotemax)) 1 drop QID LEFTEYE Last administered on 04/16/21at 13:00; Start 04/16/21 at 09:00; Stop 04/17/21 at 07:01; Status DC Non-Formulary Medication (Metoprolol Tartrate ) 100 tab BID PO ; Start 04/16/21 at 09:00; Stop 04/15/21 at 22:41; Status DC Fish Oil (Fish Oil) 1,000 mg DAILY PO Last administered on 04/16/21at 09:17; Start 04/16/21 at 09:00 Ceftriaxone Sodium 1 gm/ Sodium Chloride 50 ml @ 100 mls/hr Q24H IV Last administered on 04/16/21at 09:05; Start 04/16/21 at 09:00 Azithromycin 250 mg/Sodium Chloride 250 ml @ 250 mls/hr Q24H IV ; Start 04/15/21 at 22:15; Stop 04/15/21 at 22:29; Status DC Dexamethasone Sodium Phosphate (Decadron) 10 mg Q6HRS IV ; Start 04/16/21 at 00:00; Stop 04/16/21 at 08:03; Status DC Albuterol/ Ipratropium (Duoneb) 3 ml RTQID NEB ; Start 04/16/21 at 08:00; Stop 04/16/21 at 13:02; Status DC Enoxaparin Sodium (Lovenox 40mg Syringe) 40 mg Q24H SQ ; Start 04/15/21 at 22:15; Status UNV Metoprolol Tartrate (Lopressor) 25 mg BID PO Last administered on 04/16/21at 07:16; Start 04/16/21 at 09:00 Metoprolol Tartrate (Lopressor) 25 mg STK-MED ONCE .ROUTE ; Start 04/16/21 at 07:03; Stop 04/16/21 at 07:04; Status DC Dexamethasone Sodium Phosphate (Decadron) 10 mg Q6H IV Last administered on 04/17/21at 03:08; Start 04/16/21 at 09:00 Sodium Chloride 50 ml @ As Directed STK-MED ONCE .ROUTE ; Start 04/16/21 at 08:52; Stop 04/16/21 at 08:52; Status DC Ceftriaxone Sodium (Rocephin) 1 gm STK-MED ONCE .ROUTE ; Start 04/16/21 at 08:52; Stop 04/16/21 at 08:53; Status DC Hydralazine HCl (Apresoline) 25 mg BID PO Last administered on 04/16/21at 09:20; Start 04/16/21 at 09:15 Vitamin D (Vitamin D3) 1,000 unit HS PO Last administered on 04/16/21at 20:29; Start 04/16/21 at 21:00 Albuterol/ Ipratropium (Combivent Respimat 20-100 Mcg) 1 puff RTQID INH Last administered on 04/16/21at 20:00; Start 04/16/21 at 16:00 Digoxin (Lanoxin) 500 mcg 1X ONCE IV Last administered on 04/16/21at 14:30; Start 04/16/21 at 14:30; Stop 04/16/21 at 14:33; Status DC Acyclovir (Zovirax) 400 mg 5XDAY PO Last administered on 04/17/21at 05:35; Start 04/16/21 at 18:00 Diltiazem HCl 125 mg/Sodium Chloride 125 ml @ 5 mls/hr CONT PRN IV PER PROTOCOL Last administered on 04/16/21at 20:31; Start 04/16/21 at 19:00 Digoxin (Lanoxin) 250 mcg 1X ONCE IV Last administered on 04/16/21at 20:29; Start 04/16/21 at 19:15; Stop 04/16/21 at 19:20; Status DC Active Scripts Active Prednisone 10 Mg Tablet 10 Mg PO DAILY Cefdinir 300 Mg Capsule 1 Cap PO BID 7 Days Budesonide 0.5 Mg/2 Ml Ampul.neb 0.5 Mg NEB RTBID 30 Days Cozaar (Losartan Potassium) 25 Mg Tablet 25 Mg PO DAILY 30 Days Metoprolol Tartrate 50 Mg Tablet 50 Mg PO BID 30 Days Tamiflu (Oseltamivir Phosphate) 75 Mg Capsule 75 Mg PO BID 3 Days Azithromycin Tablet (Azithromycin) 250 Mg Tablet 250 Mg PO DAILY 3 Days Gabapentin (Gabapentin) 100 Mg Capsule 300 Mg PO DAILY 30 Days LAST DOSE GIVEN: DATE: TIME: NEXT DOSE DUE: DATE: TIME: [place] 5-325 Tablet (Hydrocodone Bit/Acetaminophen) 1 Each Tablet 1 Tab PO PRN Q6HRS PRN Reported Metoprolol Tartrate 100 Mg Tablet 100 Tab PO BID LAST DOSE GIVEN: DATE: TIME: NEXT DOSE DUE: DATE: TIME: Fish Oil 1,000 Mg Softgel ([place]-3/Dha/Epa/Fish Oil) 1 Each Capsule 2 Cap PO DAILY LAST DOSE GIVEN: DATE: TIME: NEXT DOSE DUE: DATE: TIME: Vitamin D (Cholecalciferol (Vitamin D3)) 400 Unit Tablet 400 Unit PO DAILY LAST DOSE GIVEN: DATE: TIME: NEXT DOSE DUE: DATE: TIME: Hydralazine Hcl 25 Mg Tablet 25 Mg PO BID LAST DOSE GIVEN: DATE: TIME: NEXT DOSE DUE: DATE: TIME: Acid Controller (Famotidine) 20 Mg Tablet 20 Mg PO DAILY LAST DOSE GIVEN: DATE: TIME: NEXT DOSE DUE: DATE: TIME: Allopurinol 100 Mg Tablet 100 Mg PO DAILY LAST DOSE GIVEN: DATE: TIME: NEXT DOSE DUE: DATE: TIME: Atorvastatin Calcium 10 Mg Tablet 10 Mg PO HS LAST DOSE GIVEN: DATE: TIME: NEXT DOSE DUE: DATE: TIME: Probiotic (Lactobacillus Combo No.11) 1 Each Cap.sprink 1 Each PO DAILY LAST DOSE GIVEN: DATE: TIME: NEXT DOSE DUE: DATE: TIME: NITROGLYCERIN SubLingual (Nitroglycerin) 0.4 Mg Tab.subl 0.4 Mg SL PRN Q5MIN PRN NOT GIVEN IN THE HOSPITAL NEXT DOSE DUE: DATE: RESUME TODAY TIME: IF AND WHEN NEEDED Restasis (Cyclosporine) 1 Each [place]pe[place] 1 Drop EACHEYE BID LAST DOSE GIVEN: DATE: TIME: NEXT DOSE DUE: DATE: TIME: Lotemax (Loteprednol Etabonate) 5 Ml Drops.susp 1 Drop LEFTEYE QID LAST DOSE GIVEN: DATE: TIME: NEXT DOSE DUE: DATE: TIME: Levothyroxine Sodium 125 Mcg Tablet 125 Mcg PO DAILY LAST DOSE GIVEN: DATE: TIME: NEXT DOSE DUE: DATE: TIME: ALLERGIES Allergies: Coded Allergies: niacin (Verified Allergy, Intermediate, 03/05/21) ROS Review of Systems 14 point ROS conducted with pertinent positives noted above in HPI PHYSICAL EXAM General: Alert, Oriented X3, Cooperative, No acute distress HEENT: Atraumatic Lungs: Other (diminished ) Heart: Other (AFIB, rate controlled ) Abdomen: Soft, Other (obese) Extremities: No edema Skin: No breakdown Neuro: Normal speech, Strength at 5/5 X4 ext, Sensation intact Psych/Mental Status: Mood NL MUSCULOSKELETAL: Osteoarthritic changes both hands VITALS Vital Signs Vital Signs Date Time Temp Pulse Resp B/P (MAP) Pulse Ox O2 Delivery O2 Flow Rate FiO2 04/17/21 07:00 80 16 116/64 (81) 96 High Flow Nasal Cannula 5.0 04/17/21 00:01 97.8 LABS LABS Laboratory Tests Test 04/15/21 08:30 04/15/21 12:27 04/15/21 16:15 04/16/21 07:52 White Blood Count 9.8 x10^3/uL (4.0-11.0) 8.4 x10^3/uL (4.0-11.0) Red Blood Count 3.37 x10^6/uL (3.50-5.40) 3.49 x10^6/uL (3.50-5.40) Hemoglobin 11.9 g/dL (12.0-15.5) 12.2 g/dL (12.0-15.5) Hematocrit 35.6 % (36.0-47.0) 37.7 % (36.0-47.0) Mean Corpuscular Volume 106 fL (79-100) 108 fL (79-100) Mean Corpuscular Hemoglobin 35 pg (25-35) 35 pg (25-35) Mean Corpuscular Hemoglobin Concent 34 g/dL (31-37) 32 g/dL (31-37) Red Cell Distribution Width 15.3 % (11.5-14.5) 15.8 % (11.5-14.5) Platelet Count 186 x10^3/uL (140-400) 168 x10^3/uL (140-400) Neutrophils (%) (Auto) 87 % (31-73) 91 % (31-73) Lymphocytes (%) (Auto) 4 % (24-48) 4 % (24-48) Monocytes (%) (Auto) 8 % (0-9) 5 % (0-9) Eosinophils (%) (Auto) 0 % (0-3) 0 % (0-3) Basophils (%) (Auto) 1 % (0-3) 0 % (0-3) Neutrophils # (Auto) 8.5 x10^3uL (1.8-7.7) 7.6 x10^3uL (1.8-7.7) Lymphocytes # (Auto) 0.4 x10^3/uL (1.0-4.8) 0.4 x10^3/uL (1.0-4.8) Monocytes # (Auto) 0.8 x10^3/uL (0.0-1.1) 0.4 x10^3/uL (0.0-1.1) Eosinophils # (Auto) 0.0 x10^3/uL (0.0-0.7) 0.0 x10^3/uL (0.0-0.7) Basophils # (Auto) 0.1 x10^3/uL (0.0-0.2) 0.0 x10^3/uL (0.0-0.2) Sodium Level 138 mmol/L (136-145) 139 mmol/L (136-145) Potassium Level 4.0 mmol/L (3.5-5.1) 3.5 mmol/L (3.5-5.1) Chloride Level 101 mmol/L (98-107) 105 mmol/L (98-107) Carbon Dioxide Level 26 mmol/L (21-32) 23 mmol/L (21-32) Anion Gap 11 (6-14) 11 (6-14) Blood Urea Nitrogen 32 mg/dL (7-20) 40 mg/dL (7-20) Creatinine 1.7 mg/dL (0.6-1.0) 1.5 mg/dL (0.6-1.0) Estimated GFR (Cockcroft-Gault) 29.6 34.2 BUN/Creatinine Ratio 19 (6-20) 27 (6-20) Glucose Level 171 mg/dL (70-99) 163 mg/dL (70-99) Calcium Level 8.3 mg/dL (8.5-10.1) 7.9 mg/dL (8.5-10.1) Total Bilirubin 1.7 mg/dL (0.2-1.0) 0.6 mg/dL (0.2-1.0) Aspartate Amino Transf (AST/SGOT) 48 U/L (15-37) 45 U/L (15-37) Alanine Aminotransferase (ALT/SGPT) 41 U/L (14-59) 34 U/L (14-59) Alkaline Phosphatase 64 U/L (46-116) 55 U/L (46-116) Troponin I High Sensitivity 92 ng/L (4-50) 77 ng/L (4-50) 50 ng/L (4-50) Total Protein 7.3 g/dL (6.4-8.2) 6.6 g/dL (6.4-8.2) Albumin 2.1 g/dL (3.4-5.0) 1.7 g/dL (3.4-5.0) Albumin/Globulin Ratio 0.4 (1.0-1.7) 0.3 (1.0-1.7) Magnesium Level 2.3 mg/dL (1.8-2.4) Test 04/16/21 15:20 04/16/21 19:40 Blood Gas pH 7.43 (7.35-7.45) Blood Gas PCO2 35 mmHg (35-45) Blood Gas PO2 72 mmHg (71-100) Blood Gas HCO3 23 mmol/L (22-26) Arterial Bld O2 Saturation (Calc) 95 % (92-99) FiO2 60 % Urine Collection Type Clean catch Urine Color Yellow Urine Clarity Clear Urine pH 5.5 Urine Specific [place] 1.025 Urine Protein Neg (NEG-TRACE) Urine Glucose (UA) 100 mg/dL (NEG) Urine Ketones (Stick) Neg mg/dL (NEG) Urine Blood Neg (NEG) Urine Nitrite Neg (NEG) Urine Bilirubin Neg (NEG) Urine Urobilinogen Dipstick 0.2 mg/dL (0.2 mg/dL) Urine Leukocyte Esterase Neg (NEG) Urine RBC 0 /HPF (0-2) Urine WBC 0 /HPF (0-4) Urine Squamous Epithelial Cells Occ /LPF Urine Bacteria 0 /HPF (0-FEW) ECHOCARDIOGRAM Echocardiogram <Conclusion> The left ventricular systolic function is normal. The Ejection Fraction is 55-60%. There is normal LV segmental wall motion. Transmitral Doppler flow pattern is Grade I-abnormal relaxation pattern. Trace mitral regurgitation. Trace tricuspid regurgitation with an estiamted PAP of 27 mmHg. There is no evidence of significant pericardial effusion. DATE: 09/19/20 1011 STRESS TEST Stress Test Conclusion 1. Regadenoson cardioisotope stress test showed breast attenuation artifact without any definite evidence for ischemia or infarct. 2. Normal left ventricular systolic function with ejection fraction calculated at 89%. 3. Low risk for cardiac events. DATE: 09/20/20 0917 HEART CATH Heart Cath Conclusion 1. Normal left sided filling pressures. 2. Two vessel coronary disease involving the LAD and RCA 3. Negative iFR of the proximal LAD stenosis. 4. Negative iFR of the mid RCA stenosis. Recommendations Aggressive Medical Therapy Aggressive medical therapy Consider non-invasive ischemic evaluation in 6-12 months to determine if any significant worsening of her moderate coronary disease. DATE: 08/13/18 1215 ASSESSMENT/PLAN Assessment/Plan 1. Acute respiratory failure secondary to COVID PNA 2. PAFIB with RVR; S/p IV Digoxin. On Cardizem gtt. Remains in AFIB, rate controlled. Eliquis for stroke prophylaxis 3. Hypertension; controlled 4. Hyperlipidemia; statin 5. CAD, non-obstructive; [facility] 08/09 with two vessel coronary disease involving the LAD and RCA, negative iFR of both. Recent stress without evidence of ischemia or infarct 6. Diabetes, II 7. LIDA 8. Hypothyroidism Recommendations Resume oral metoprolol. Increase for better rate control Titrate off Cardizem gtt as able Continue Eliquis for stroke prophylaxis Secondary prevention Ongoing pulmonary optimization, treatment of COVID Supportive care DANNI JONES MD 04/18/21 1000: CARDIAC CONSULT ASSESSMENT/PLAN Assessment/Plan Patient seen and examined on 04/17/2021. I agree with our nurse practitioners assessment and plan. Acute respiratory failure secondary to COVID PNA. Feeling better today. Continue present treatment. PAFIB with RVR; S/p IV Digoxin. On Cardizem gtt. Remains in AFIB, rate controlled. Eliquis for stroke prophylaxis. Tapering off IV Cardizem as tolerated. Hypertension; controlled Hyperlipidemia; statin CAD, non-obstructive; [facility] 08/09 with two vessel coronary disease involving the LAD and RCA, negative iFR of both. Recent stress without evidence of ischemia or infarct Diabetes, II LIDA. Monitoring lab. Hypothyroidism ENRIKE PÉREZ APRN Apr 17, 2021 07:47 DANNI JONES MD Apr 18, 2021 10:00
[2021-04-17] MEDS: IPRATROPIUM/ALBUTEROL 20/100mcg/INH INHALER. INH SCH ×5 (08:20→23:15)
[2021-04-17] MEDS: OMEGA-3 FATTY ACIDS/FISH OIL 1,000 MG CAPSULE. PO SCH (08:21)
[2021-04-17] MEDS: LACTOBACILLUS RHAMNOSUS GG 1 CAPSULE. PO SCH (08:21)
[2021-04-17] MEDS: AZITHROMYCIN 250 MG TABLET. PO SCH (08:21)
[2021-04-17] MEDS: LOSARTAN 25 MG TABLET. PO SCH (08:21)
[2021-04-17] MEDS: APIXABAN 5 MG TABLET. PO SCH ×2 (08:22→21:32)
[2021-04-17] MEDS: METOPROLOL TART IMMED RELEASE 50 MG TABLET PO SCH ×2 (08:22→21:30)
[2021-04-17] MEDS: GABAPENTIN 300 MG CAPSULE. PO SCH (08:22)
[2021-04-17] MEDS: FAMOTIDINE 20 MG TABLET PO SCH (08:22)
[2021-04-17] MEDS: ALLOPURINOL 100 MG TABLET. PO SCH (08:22)
[2021-04-17] MEDS: cycloSPORINE 0.05% OPTH 1 DROP DROPERETTE OU SCH ×2 (10:26→21:32)
[2021-04-17] MEDS: BUDESONIDE 0.5 MG/2 ML NEBU NEB SCH ×2 (10:28→20:00)
[2021-04-17] MEDS: ATORVASTATIN CALCIUM 10 MG TABLET. PO SCH (21:30)
[2021-04-17] MEDS: CHOLECALCIFEROL (VITAMIN D3) 1,000 UNIT TABLET PO SCH (21:32)
--- NOTE | 2021-04-17 22:25 | RAD ---
XR CHEST 1V History: PICC line placement Comparison: 04/16/2021 Technique: Portable AP radiograph of the chest. Findings: Left upper extremity PICC with tip projecting at the lower SVC. Redemonstrated diffuse bilateral airs pace opacities, minimally increased from comparison. No pleural effusion or pneumothorax. The cardiac silhouette and pulmonary vasculature are obscured. Advanced degenerative changes of the shoulders. S oft tissues are unremarkable. Impression: 1. Left upper extremity PICC with tip projecting at the lower SVC. 2. Diffuse bilateral airspace opacities, increased from comparison. Electronically signed by: Rahul Patten MD (04/17/2021 10:22 PM) [facility]
[2021-04-17] MEDS ORDERED: IPRATROPIUM/ALBUTEROL 20/100mcg/INH INHALER. INH PRN (23:30)
[2021-04-18] VITALS (7 sets, daily range): BP systolic 101–157; BP diastolic 60–81
[2021-04-18] MEDS: PIPERACILLIN/TAZOBACTAM 3.375 GM in IV NORMAL SALINE 50ML 50 ML IV SCH ×4 (00:25→17:42)
[2021-04-18] MEDS: DEXAMETHASONE SOD PHOS 10 MG/ML VIAL. IV SCH ×4 (03:14→19:40)
--- NOTE | 2021-04-18 05:35 | PN ---
DATE: 04/17/2021 SUBJECTIVE: A 70-year-old female in with COVID-19 pneumonia as well as that of influenza. The patient went into atrial fibrillation with rapid ventricular response, was initially transferred over to the ICU by Cardiology, started on a Cardizem drip. The patient made good progress on the drip and was converted over to oral medications and as a result of this, the patient was then placed back currently onto the floor. OBJECTIVE: VITAL SIGNS: Blood pressure 110/50, respiratory rate 18, pulse 72, 5 liters at 92%. GENERAL: The patient otherwise alert and oriented. LUNGS: Diminished, overall stating she is feeling somewhat better. CARDIOVASCULAR: __ rhythm. ABDOMEN: Soft, protuberant. EXTREMITIES: No clubbing, cyanosis or edema. NEUROLOGIC: Stable. IMPRESSION: COVID-19 pneumonia, acute respiratory failure, influenza B, paroxysmal atrial fibrillation, essential hypertension, type 2 diabetes. PLAN: Continue to monitor carefully and make adjustments on medications as indicated. DAWOOD DR: Essie TID: [id number]
[2021-04-18] MEDS: ACYCLOVIR 200 MG CAPSULE PO SCH ×5 (06:02→21:50)
[2021-04-18] MEDS: LEVOTHYROXINE 125 MCG TABLET PO SCH (06:02)
--- NOTE | 2021-04-18 07:47 | NUR ---
Per shift report patient is currently on 12L NC with an oxygen saturation of 91%. Will report change to Dr. Edgar and continue to monitor patient.
[2021-04-18] MEDS: IPRATROPIUM/ALBUTEROL 20/100mcg/INH INHALER. INH SCH ×4 (08:00→19:41)
--- NOTE | 2021-04-18 08:13 | PDOC ---
CARDIO Progress Notes Date & Time Date of Service DATE: 04/18/21 TIME: 08:13 Time of Evaluation 08:13 Subjective Notes more SOA today. No chest pain, palpitations. Vitals Vitals Vital Signs Date Time Temp Pulse Resp B/P (MAP) Pulse Ox O2 Delivery O2 Flow Rate FiO2 04/18/21 06:33 97.0 56 26 133/81 (98) 93 Nasal Cannula 12.0 Weight Weight [ ] Input and Output I.O. Intake and Output 04/18/21 07:00 Intake Total 740 ml Balance 740 ml Intake Oral 740 ml Laboratory Labs Laboratory Tests Test 04/16/21 15:20 04/16/21 19:40 Blood Gas pH 7.43 (7.35-7.45) Blood Gas PCO2 35 mmHg (35-45) Blood Gas PO2 72 mmHg (71-100) Blood Gas HCO3 23 mmol/L (22-26) Arterial Bld O2 Saturation (Calc) 95 % (92-99) FiO2 60 % Urine Collection Type Clean catch Urine Color Yellow Urine Clarity Clear Urine pH 5.5 Urine Specific [place] 1.025 Urine Protein Neg (NEG-TRACE) Urine Glucose (UA) 100 mg/dL (NEG) Urine Ketones (Stick) Neg mg/dL (NEG) Urine Blood Neg (NEG) Urine Nitrite Neg (NEG) Urine Bilirubin Neg (NEG) Urine Urobilinogen Dipstick 0.2 mg/dL (0.2 mg/dL) Urine Leukocyte Esterase Neg (NEG) Urine RBC 0 /HPF (0-2) Urine WBC 0 /HPF (0-4) Urine Squamous Epithelial Cells Occ /LPF Urine Bacteria 0 /HPF (0-FEW) Microbiology Micro Microbiology 04/15/21 Blood Culture - Preliminary, Resulted NO GROWTH AFTER 2 DAYS... Physical Exams HEENT: Neck Supple W Full Motion Chest: Symmetric Lungs: Other (diminished ) Heart: RRR Abdomen: Soft N/T Extremities: Other (trace bilateral LE edema ) Neurology: alert, oriented, follow commands Assessment Assessment 1. Acute respiratory failure secondary to COVID PNA 2. PAFIB with RVR; metoprolol resumed, increased. Converted back to SR. 3. Hypertension; controlled 4. Hyperlipidemia; statin 5. CAD, non-obstructive; [facility] 08/09 with two vessel coronary disease involving the LAD and RCA, negative iFR of both. Recent stress without evidence of ischemia or infarct 6. Diabetes, II 7. LIDA 8. Hypothyroidism Recommendations Continue metoprolol for rate control. Eliquis for stroke prophylaxis Secondary prevention Ongoing pulmonary optimization, treatment of COVID. Plans for transfer to ICU for increasing oxygen requirements, worsening CXR. Supportive care ENRIKE PÉREZ APRN Apr 18, 2021 08:13
--- NOTE | 2021-04-18 08:52 | RAD ---
EXAMINATION: Chest radiograph. VIEWS: 1 COMPARISON: 04/17/2021 INDICATION:70 years, Female, increased oxygen demand. FINDINGS: Stable cardiomediastinal silhouette. Slightly worsening diffuse bilateral pulmonary infiltrates. No s izable pleural effusion or pneumothorax. No acute osseous process. Left PICC line catheter remains un changed in position. IMPRESSION: Slightly worsening diffuse bilateral pulmonary infiltrates. Electronically signed by: Chay Mireles MD (04/18/2021 8:50 AM) [id number]
[2021-04-18] MEDS: cycloSPORINE 0.05% OPTH 1 DROP DROPERETTE OU SCH ×2 (09:00→19:40)
[2021-04-18] MEDS: LOSARTAN 25 MG TABLET. PO SCH (10:10)
[2021-04-18] MEDS: ALLOPURINOL 100 MG TABLET. PO SCH (10:10)
[2021-04-18] MEDS: APIXABAN 5 MG TABLET. PO SCH ×2 (10:11→19:38)
[2021-04-18] MEDS: OMEGA-3 FATTY ACIDS/FISH OIL 1,000 MG CAPSULE. PO SCH (10:12)
[2021-04-18] MEDS: LACTOBACILLUS RHAMNOSUS GG 1 CAPSULE. PO SCH (10:12)
[2021-04-18] MEDS: GABAPENTIN 300 MG CAPSULE. PO SCH (10:12)
[2021-04-18] MEDS: AZITHROMYCIN 250 MG TABLET. PO SCH (10:12)
[2021-04-18] MEDS: FAMOTIDINE 20 MG TABLET PO SCH (10:12)
[2021-04-18] MEDS: BUDESONIDE 0.5 MG/2 ML NEBU NEB SCH ×2 (10:13→20:00)
[2021-04-18] MEDS: METOPROLOL TART IMMED RELEASE 50 MG TABLET PO SCH ×2 (10:13→19:40)
[2021-04-18] MEDS ORDERED: OLANZapine 2.5 MG TABLET PO PRN (17:00)
[2021-04-18] MEDS: CHOLECALCIFEROL (VITAMIN D3) 1,000 UNIT TABLET PO SCH (19:38)
[2021-04-18] MEDS: HYDROcodone/APAP 5/325MG 1 TAB TABLET PO PRN (19:38)
[2021-04-18] MEDS: ATORVASTATIN CALCIUM 10 MG TABLET. PO SCH (19:41)
--- NOTE | 2021-04-18 20:03 | NUR ---
pt refused pulmicort. She felt that her inhaler was enough.
--- NOTE | 2021-04-18 21:36 | NUR ---
DR. KNOWLES AND NURSING SUP NOTIFIED OF PT'S INCREASING O2 DEMANDS. PT IS C/O WORSENING SOA, TACHYPNEIC, AND UNABLE TO TAKE A DEEP BREATH. PT WAS SATING 86% ON 15L VIA NRB. O2 INCREASED TO 15L NRB + 8L HFNC, IMPROVED TO 93% SPO2 AFTER SEVERAL MINUTES. NEW ORDERS FOR MORPHINE 1MG IVP PRN Q2HRS FOR AIR HUNGER AND STAT ABG'S, TRANSFER OUT MARISELA. PER NURSING SUP, PT IS UNABLE TO BE TRANSFERRED TO [facility] COVID UNIT AT THIS TIME DUE TO NO BED AVAILABILITY. PT WILL NEED TO BE TRANSFERRED TO ICU HERE FOR CLOSER MONITORING, IF SHE IS PLACED ON BIPAP.
[2021-04-18] MEDS: MORPHINE SULFATE 2 MG/ML DISP.SYRIN. IV PRN (22:02)
[2021-04-18 22:23] LABS: BGAS PH 7.41 (7.35-7.45)
--- NOTE | 2021-04-18 23:40 | NUR ---
PT TRANSFERRED TO ICU BED 3 VIA BED X2 ASSIST. RT AT BEDSIDE TO PLACE PT ON BIPAP. PT NOW ICU STATUS. STILL AWAITING TRANSFER TO [facility].
[2021-04-19] VITALS (14 sets, daily range): BP systolic 111–157; BP diastolic 49–74
[2021-04-19] MEDS: PIPERACILLIN/TAZOBACTAM 3.375 GM in IV NORMAL SALINE 50ML 50 ML IV SCH ×3 (00:10→11:40)
[2021-04-19] MEDS: MORPHINE SULFATE 2 MG/ML DISP.SYRIN. IV PRN ×3 (01:03→09:30)
[2021-04-19] MEDS: DEXAMETHASONE SOD PHOS 10 MG/ML VIAL. IV SCH ×2 (02:31→08:58)
[2021-04-19] MEDS: LEVOTHYROXINE 125 MCG TABLET PO SCH (06:12)
[2021-04-19] MEDS: ACYCLOVIR 200 MG CAPSULE PO SCH ×2 (06:19→09:44)
--- NOTE | 2021-04-19 06:35 | PN ---
DATE: 04/18/2021 SUBJECTIVE: The patient is a 70-year-old female in with COVID-19 pneumonia and influenza B. The patient feels a little bit better. Chest x-ray shows worsening of her infiltrative process despite being on IV antibiotic therapy and aggressive therapy for the COVID-19. The patient will be transferred down to [place] for further evaluation by Pulmonology. OBJECTIVE: VITAL SIGNS: Blood pressure 139/60, respiratory rate 24, pulse 70, afebrile. LUNGS: Show expiratory wheezes throughout her lungs. CARDIOVASCULAR: . ABDOMEN: Soft, nontender. EXTREMITIES: No clubbing, cyanosis or edema. NEUROLOGIC: Stable. The patient will be transferred down to Dr. Cortez down there for further evaluation with Pulmonary consultation. IMPRESSION: COVID-19 pneumonia, influenza B, atrial fibrillation with rapid ventricular response, essential hypertension, type 2 diabetes. OANH/KHADIJAH/MARELY DR: OANH/arnulfo TID: [id number]
[2021-04-19] MEDS: BUDESONIDE 0.5 MG/2 ML NEBU NEB SCH (08:00)
--- NOTE | 2021-04-19 08:38 | PDOC ---
CARDIO Progress Notes Date & Time Date of Service DATE: 04/19/21 TIME: 08:37 Time of Evaluation 08:37 Subjective Notes sleeping, on BiPAP Vitals Vitals Vital Signs Date Time Temp Pulse Resp B/P (MAP) Pulse Ox O2 Delivery O2 Flow Rate FiO2 04/19/21 07:00 58 16 135/62 (86) 97 BiPAP/CPAP 04/19/21 06:04 96.8 04/19/21 04:38 30.0 Weight Weight [ ] Input and Output I.O. Intake and Output 04/19/21 07:00 Intake Total 660 ml Output Total 925 ml Balance -265 ml Intake Oral 560 ml IV Total 100 ml Output Urine Total 925 ml # Bowel Movements 2 Laboratory Labs Laboratory Tests Test 04/18/21 22:05 Blood Gas pH 7.41 (7.35-7.45) Blood Gas PCO2 41 mmHg (35-45) Blood Gas PO2 51 mmHg (71-100) Blood Gas HCO3 26 mmol/L (22-26) Arterial Bld O2 Saturation (Calc) 87 % (92-99) FiO2 100 % Microbiology Micro Microbiology 04/15/21 Blood Culture - Preliminary, Resulted NO GROWTH AFTER 3 DAYS... Physical Exams HEENT: Other (supple ) Chest: Symmetric Lungs: Other (on BiPAP) Heart: RRR (SR/SB, rate near 60) Extremities: Other (trace bilateral LE edema ) Neurology: other (sleeping ) Assessment Assessment 1. Acute respiratory failure secondary to COVID PNA. now requiring BiPAP 2. PAFIB with RVR; metoprolol resumed, increased. Converted back to SR and is maintaining. Tele noted with mild bradycardia 3. Hypertension; controlled 4. Hyperlipidemia; statin 5. CAD, non-obstructive; [facility] 08/09 with two vessel coronary disease involving the LAD and RCA, negative iFR of both. Recent stress without evidence of ischemia or infarct 6. Diabetes, II 7. LIDA 8. Hypothyroidism Recommendations Continue metoprolol for rate control. Monitor tele; may need to decrease metoprolol to 25mg BID with bradycardia Eliquis for stroke prophylaxis Secondary prevention Ongoing pulmonary optimization, treatment of COVID. Supportive care ENRIKE PÉREZ APRN Apr 19, 2021 08:37
[2021-04-19] MEDS: GABAPENTIN 300 MG CAPSULE. PO SCH (08:56)
[2021-04-19] MEDS: ALLOPURINOL 100 MG TABLET. PO SCH (08:56)
[2021-04-19] MEDS: APIXABAN 5 MG TABLET. PO SCH (08:56)
[2021-04-19] MEDS: OMEGA-3 FATTY ACIDS/FISH OIL 1,000 MG CAPSULE. PO SCH (08:57)
[2021-04-19] MEDS: LOSARTAN 25 MG TABLET. PO SCH (08:57)
[2021-04-19] MEDS: METOPROLOL TART IMMED RELEASE 50 MG TABLET PO SCH (08:57)
[2021-04-19] MEDS: FAMOTIDINE 20 MG TABLET PO SCH (08:57)
[2021-04-19] MEDS: AZITHROMYCIN 250 MG TABLET. PO SCH (08:57)
[2021-04-19] MEDS: LACTOBACILLUS RHAMNOSUS GG 1 CAPSULE. PO SCH (08:57)
[2021-04-19] MEDS: IPRATROPIUM/ALBUTEROL 20/100mcg/INH INHALER. INH SCH ×2 (08:58→11:41)
[2021-04-19] MEDS: cycloSPORINE 0.05% OPTH 1 DROP DROPERETTE OU SCH (08:59)
[2021-04-19] MEDS ORDERED: FUROSEMIDE 20 MG/2 ML VIAL IVP ONE ×2 (09:15)
[2021-04-19] MEDS ORDERED: FUROSEMIDE 20 MG/2 ML VIAL ONE (09:19)
[2021-04-19] MEDS ORDERED: AA 4.25 %/CALCIUM/LYTES/D5W 1,000 ML IV SCH (10:30)
[2021-04-19] MEDS ORDERED: AA 4.25 %/CALCIUM/LYTES/D5W 2,000 ML IV PRN (11:30)
--- NOTE | 2021-04-19 13:33 | NUR ---
One time 20 mg lasix given this AM. BiPAP weaned from 100% FiO2 to 75%. Pt made NPO, Clinimix IV start for nutrition. Bed obtained at [facility]. Report to called to devin Francis. EMS at bedside. Belongings sent with pt. Discharged @ 5756. Pts , Thompson, informed of transfer.
--- NOTE | 2021-04-23 20:24 | DS ---
DATE OF DISCHARGE: 04/19/2021 HOSPITAL COURSE: This is a 70-year-old female came in a week or so ago, came in with increased shortness of breath, acute respiratory failure. The patient was found to have both COVID-19 and influenza B. She got progressively worse and was brought in through the Emergency Room where she was found to be quite hypoxic. As a result of this, the patient was admitted to the hospital for further evaluation and treatment. The patient in turn placed on IV antibiotic therapy, aggressive pulmonary toilet. The patient made fair progress at first, but then continued to show some signs of deterioration. Her TSH was also noted to be low at 0.017, so some hyperthyroidism there. Her albumin was low at 1.7. The patient's chest x-ray showed continued worsening of her diffuse bilateral pulmonary infiltrates despite aggressive therapy with remdesivir and IV antibiotic therapy, steroids and vitamin D and the like, breathing treatments. The patient was then transferred down to [place] for acute care with the buffer machine at that facility. IMPRESSION: Acute on top of chronic respiratory failure, pneumonia secondary to COVID-19 pneumonia secondary to influenza B, severe protein malnutrition, hyperthyroidism, morbid obesity, paroxysmal atrial fibrillation with rapid ventricular response, type 2 diabetes, essential hypertension. PLAN: See MRAD. The patient transferred via EMS down to [place]. She required aggressive pulmonary toilet, was placed on a BiPAP and CPAP to maintain her oxygen saturation over 92%. OANH/EKT DR: OANH/arnulfo TID: [id number]
== END 2021-04-19 13:15 | disposition short-term general hospital (02) | DRG 871 ==
LOC: ER 08:00 → ER HOLD 09:08 → 1 SOUTH 15:45 → ER HOLD 15:51 → 1 SOUTH 04-16 12:03 → ICU 04-16 19:56 → 1 SOUTH 04-17 20:20 → ICU 04-18 23:40
PROVIDERS: ADMIT Family Medicine; ATTEND Family Medicine
PROC: 02HV33Z Insertion of Infusion Device into Superior Vena Cava, Percutaneous Approach (ICD-10-PCS; 2021-04-15)
PROC: 5A0935A Assistance with Respiratory Ventilation, Less than 24 Consecutive Hours, High Flow/Velocity Cannula (ICD-10-PCS; principal; 2021-04-16)
PROC: 5A0935A Assistance with Respiratory Ventilation, Less than 24 Consecutive Hours, High Flow/Velocity Cannula (ICD-10-PCS; 2021-04-17)
PROC: 5A0935A Assistance with Respiratory Ventilation, Less than 24 Consecutive Hours, High Flow/Velocity Cannula (ICD-10-PCS; 2021-04-18)
PROC: 5A09357 Assistance with Respiratory Ventilation, Less than 24 Consecutive Hours, Continuous Positive Airway Pressure (ICD-10-PCS; 2021-04-18)
PROC: 5A0935A Assistance with Respiratory Ventilation, Less than 24 Consecutive Hours, High Flow/Velocity Cannula (ICD-10-PCS; 2021-04-19)
PROC: 5A09357 Assistance with Respiratory Ventilation, Less than 24 Consecutive Hours, Continuous Positive Airway Pressure (ICD-10-PCS; 2021-04-19)
DX: A41.89 Other specified sepsis (principal); U07.1 COVID-19; J12.82 Pneumonia due to coronavirus disease 2019; J10.08 Influenza due to other identified influenza virus with other specified pneumonia; E43 Unspecified severe protein-calorie malnutrition; J96.21 Acute and chronic respiratory failure with hypoxia; I48.20 Chronic atrial fibrillation, unspecified; N17.9 Acute kidney failure, unspecified; Z68.42 Body mass index [BMI] 45.0-49.9, adult; E03.9 Hypothyroidism, unspecified; E11.43 Type 2 diabetes mellitus with diabetic autonomic (poly)neuropathy; E66.01 Morbid (severe) obesity due to excess calories; E78.5 Hyperlipidemia, unspecified; I25.10 Atherosclerotic heart disease of native coronary artery without angina pectoris; I48.0 Paroxysmal atrial fibrillation; Z80.1 Family history of malignant neoplasm of trachea, bronchus and lung; Z82.3 Family history of stroke; Z82.49 Family history of ischemic heart disease and other diseases of the circulatory system; Z83.3 Family history of diabetes mellitus; Z85.42 Personal history of malignant neoplasm of other parts of uterus; Z86.711 Personal history of pulmonary embolism; Z86.73 Personal history of transient ischemic attack (TIA), and cerebral infarction without residual deficits; Z87.891 Personal history of nicotine dependence; Z90.710 Acquired absence of both cervix and uterus; Z96.653 Presence of artificial knee joint, bilateral; K21.9 Gastro-esophageal reflux disease without esophagitis; Z88.8 Allergy status to other drugs, medicaments and biological substances; I12.9 Hypertensive chronic kidney disease with stage 1 through stage 4 chronic kidney disease, or unspecified chronic kidney disease; N18.9 Chronic kidney disease, unspecified; Z86.16 Personal history of COVID-19
CPT/HCPCS: 36415; 36600; 71045; 80053; 81001; 82803; 83735; 84443; 84484; 85025; 87040; 93005; 94640; 94660; 96365; 96366; 96367; 96372; 96375; 96376; J0696; J1100; J1160; J1650; J2270; J2543; J3010; J3490; 97530; 99285-25; J7030